=== PATIENT | male | born 1930 | race Caucasian/White ===

== ENCOUNTER 2016-08-06 22:57 | Inpatient (IN) | payer MEDICAID ==
[~2016-08-06] VITALS: Ht 162.6 cm; Wt 69.9 kg
[2016-08-06 23:00] VITALS: BP 189/100; PULSE 74; RESP 18; TEMP 97.9; O2SAT 99
[2016-08-06] MEDS ORDERED: ASPIRIN 81 MG CHEW TAB PO ONE (23:15)
[2016-08-06] MEDS ORDERED: SODIUM CHLORIDE 0.9% FLUSH 10 ML FLUSH IVF PRN (23:15)
[2016-08-06 23:20] VITALS: RESP 18; O2SAT 99
[2016-08-06] MEDS: NITROGLYCERIN 0.4 MG SL 25 TABS/BTL SL SCH ×3 (23:20→23:33)
--- NOTE | 2016-08-06 23:23 | PD ---
HPI Chief Complaint: Chest Pain Time Seen by Provider: 23:06 Travel History International Travel<30 days: No Contact w/Intl Traveler<30days: No Traveled to known affect area: No History of Present Illness HPI The patient is an 86-year-old male with a history of coronary artery disease and complains of a pressure pain on the anterior substernal region since about 10:15 PM today. He denies any nausea, diaphoresis but does have some radiation of pain down the left arm. He denies any shortness of breath. The patient speaks [place]ic but has his son that can interpret. He does not have any local physicians. 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 PFSH Past Medical History Hx Anticoagulant Therapy: Yes Cancer: Yes (prostate) Cardiovascular Problems: Yes High Cholesterol: Yes Chemotherapy: Yes Chest Pain: Yes Coronary Artery Disease: Yes Diminished Hearing: No Genitourinary: Yes Hypertension: Yes Inguinal Hernia: Yes Tetanus Vaccination: Unknown Influenza Vaccination: No Past Surgical History Cardiac Surgery: Yes Coronary Artery Bypass Graft: Yes Other Surgery: Yes (hernia repair) Social History Alcohol Use: No Tobacco Use: No Substance Use: No Allergies-Medications (Allergen,Severity, Reaction): Uncoded Allergies: dipyrone (Allergy, Intermediate, Hives, 08/06/16) Reported Meds & Prescriptions Reported Meds & Active Scripts Active Reported Simvastatin 40 Mg Tab 40 Mg PO HS Isosorbide Mononitrate 10 Mg Tab 10 Mg PO DAILY Take 2 doses 7 hours apart. Flomax (Tamsulosin HCl) 0.4 Mg Cap 0.4 Mg PO HS Review of Systems Except as stated in HPI: all other systems reviewed are Neg Physical Exam Narrative GENERAL: The patient is alert, oriented 3 and slight apparent distress with his chest discomfort. His vital signs show blood pressure 189/100 but otherwise normal. SKIN: Focused skin assessment warm/dry. HEAD: Atraumatic. Normocephalic. EYES: Pupils equal and round. No scleral icterus. No injection or drainage. ENT: No nasal bleeding or discharge. Mucous membranes pink and moist. NECK: Trachea midline. No JVD. CARDIOVASCULAR: Regular rate and rhythm. No murmur appreciated. I cannot reproduce the patient's chest pain by pressing on the chest wall. RESPIRATORY: No accessory muscle use. Clear to auscultation. Breath sounds equal bilaterally. GASTROINTESTINAL: Abdomen soft, non-tender, nondistended. Hepatic and splenic margins not palpable. No guarding or rebound is present. MUSCULOSKELETAL: No obvious deformities. No clubbing. No cyanosis. No edema. NEUROLOGICAL: Awake and alert. No obvious cranial nerve deficits. Motor grossly within normal limits. Normal speech. PSYCHIATRIC: Appropriate mood and affect; insight and judgment normal. Data Data Last Documented VS Vital Signs Date Time Temp Pulse Resp B/P Pulse Ox O2 Delivery O2 Flow Rate FiO2 08/07/16 00:01 52 18 179/69 100 Room Air 08/06/16 23:00 97.9 Orders Electrocardiogram (08/06/16 23:13) Ckmb (Isoenzyme) Profile (08/06/16 23:13) Complete Blood Count With Diff (08/06/16 23:13) Comprehensive Metabolic Panel (08/06/16 23:13) Magnesium (Mg) (08/06/16 23:13) Prothrombin Time / Inr (Pt) (08/06/16 23:13) Act Partial Throm Time (Ptt) (08/06/16 23:13) Troponin I (08/06/16 23:13) Chest, Single Ap (08/06/16 23:13) Ecg Monitoring (08/06/16 23:13) Bilateral Bp Monitoring (08/06/16 23:13) Iv Access Insert/Monitor (08/06/16 23:13) Oximetry (08/06/16 23:13) Oxygen Administration (08/06/16 23:13) Aspirin Chew (Aspirin Chew) (08/06/16 23:15) Sodium Chloride 0.9% Flush (Ns Flush) (08/06/16 23:15) Nitroglycerin Sl (Nitrostat Sl) (08/06/16 23:15) B-Type Natriuretic Peptide (08/06/16 23:56) Labs Laboratory Tests Test 08/06/16 23:15 White Blood Count 7.8 TH/MM3 Red Blood Count 4.24 MIL/MM3 Hemoglobin 11.9 GM/DL Hematocrit 35.9 % Mean Corpuscular Volume 84.8 FL Mean Corpuscular Hemoglobin 28.1 PG Mean Corpuscular Hemoglobin 33.2 % Concent Red Cell Distribution Width 15.5 % Platelet Count 200 TH/MM3 Mean Platelet Volume 9.8 FL Neutrophils (%) (Auto) 58.9 % Lymphocytes (%) (Auto) 29.6 % Monocytes (%) (Auto) 7.3 % Eosinophils (%) (Auto) 3.1 % Basophils (%) (Auto) 1.1 % Neutrophils # (Auto) 4.6 TH/MM3 Lymphocytes # (Auto) 2.3 TH/MM3 Monocytes # (Auto) 0.6 TH/MM3 Eosinophils # (Auto) 0.2 TH/MM3 Basophils # (Auto) 0.1 TH/MM3 CBC Comment DIFF FINAL Differential Comment Prothrombin Time 10.7 SEC Prothromb Time International 1.0 RATIO Ratio Activated Partial 25.6 SEC Thromboplast Time Sodium Level 144 MEQ/L Potassium Level 4.4 MEQ/L Chloride Level 109 MEQ/L Carbon Dioxide Level 29.6 MEQ/L Anion Gap 5 MEQ/L Blood Urea Nitrogen 32 MG/DL Creatinine 1.60 MG/DL Estimat Glomerular Filtration 41 ML/MIN Rate Random Glucose 109 MG/DL Calcium Level 8.9 MG/DL Magnesium Level 2.3 MG/DL Total Bilirubin 0.3 MG/DL Aspartate Amino Transf 22 U/L (AST/SGOT) Alanine Aminotransferase 21 U/L (ALT/SGPT) Alkaline Phosphatase 48 U/L Total Creatine Kinase 79 U/L Troponin I 0.07 NG/ML Total Protein 7.5 GM/DL Albumin 3.6 GM/DL MDM Medical Decision Making Medical Screen Exam Complete: Yes Emergency Medical Condition: Yes Medical Record Reviewed: Yes Interpretation(s) The CBC is normal except for hemoglobin 11.9 and hematocrit of 35.9. The complete metabolic profile shows a BUN of 32, creatinine 1.6 but is otherwise normal. The troponin I is 0.07. Differential Diagnosis Acute coronary syndrome, chest wall pain, pleuritic pain, esophageal pain, gastrointestinal pain, electrolyte disorder, congestive heart failure Narrative Course The patient has an elevated troponin I. Some of this may be due to renal insufficiency, his creatinine is 1.6 and the GFR estimated is 41. He does have an enlarged heart on x-ray but there is no acute pulmonary disease. The EKG shows sinus rhythm with a rate of 56 and Q waves in V1 through V3. He also has Q waves in lead 3. T-wave inversion is present in leads 1 and 2 and aVL and V 4 ,5 and 6. I discussed the patient with Dr. Carrillo, the patient will be admitted to the intermediate care floor here at [facility]. Physician Communication Physician Communication I discussed the patient with Dr. Carrillo, the patient will be admitted to her. Diagnosis Primary Impression: Chest pain Additional Impression: Elevated troponin I level Admitting Information Admitting Physician Requests: Admit Mitchell Edwards MD Aug 06, 2016 23:23 Mitchell Edwards MD Aug 06, 2016 23:23
[2016-08-06 23:30] VITALS: BP_SYST 184; BP_SYST 187; BP_DIAS 73
[2016-08-06 23:32] LABS: AUTOMATED NEUTROPHIL # 4.6 TH/MM3 (1.8-7.7); BASOPHIL # 0.1 TH/MM3 (0-0.2); BASOPHIL % 1.1 % (0.0-2.0); EOSINOPHIL # 0.2 TH/MM3 (0-0.4); EOSINOPHIL % 3.1 % (0.0-4.0); HEMATOCRIT 35.9 % (39.0-51.0); HEMO FLAGS DIFF FINAL; LYMPH % 29.6 % (9.0-44.0); LYMPHOCYTE # 2.3 TH/MM3 (1.0-4.8); MEAN CELL VOLUME 84.8 FL (80.0-100.0); MEAN CORPUSCULAR HEMOGLOBIN 28.1 PG (27.0-34.0); MEAN CORPUSCULAR HGB CONC 33.2 % (32.0-36.0); MONO % 7.3 % (0.0-8.0); NEUT % 58.9 % (16.0-70.0); PLATELET COUNT 200 TH/MM3 (150-450); RED BLOOD COUNT 4.24 MIL/MM3 (4.50-5.90); RED CELL DISTRIBUTION WIDTH 15.5 % (11.6-17.2); WHITE BLOOD COUNT 7.8 TH/MM3 (4.0-11.0)
[2016-08-06 23:37] LABS: CHLORIDE 109 MEQ/L (98-107); POTASSIUM 4.4 MEQ/L (3.5-5.1); SODIUM (NA) 144 MEQ/L (136-145)
[2016-08-06 23:41] LABS: ANION GAP 5 MEQ/L (5-15); BICARBONATE 29.6 MEQ/L (21.0-32.0); BLOOD UREA NITROGEN 32 MG/DL (7-18); MAGNESIUM 2.3 MG/DL (1.5-2.5)
[2016-08-06 23:44] LABS: ALT (GPT) 21 U/L (12-78); AST (GOT) 22 U/L (15-37); GLOMERULAR FILTRATION RATE 41 ML/MIN (>89)
--- NOTE | 2016-08-06 23:44 | RADHPO ---
EXAM DATE/TIME: 08/06/2016 23:24 [facility] COMPARISON: No previous studies available for comparison. INDICATIONS : Chest pain starting tonight MEDICAL HISTORY : Hypertension. Hypercholesterolemia. SURGICAL HISTORY : CABG. ENCOUNTER: Initial ACUITY: 1 day PAIN SCORE: 5/10 LOCATION: Bilateral chest FINDINGS: The cardiac silhouette is normal in transverse diameter. Median sternotomy wires are present. The patricia gs are free of acute parenchymal opacity. No effusions are identified. CONCLUSION: 1. Cardiomegaly. No acute pulmonary disease. Trevon Read MD on August 06, 2016 at 23:43 Board Certified Radiologist. This report was verified electronically.
[2016-08-06 23:45] LABS: APTT (PATIENT) 25.6 SEC (24.3-30.1); PROTHROMBIN TIME - PATIENT 10.7 SEC (9.8-11.6); TOTAL BILIRUBIN ADULT 0.3 MG/DL (0.2-1.0)
[2016-08-06 23:47] LABS: ALKALINE PHOSPHATASE 48 U/L (45-117)
[2016-08-06 23:49] LABS: CREATINE KINASE 79 U/L (39-308)
[2016-08-06] MEDS ORDERED: ISOS10TA3 PO (23:55)
[2016-08-06] MEDS ORDERED: TAMS5CAP PO (23:55)
[2016-08-06 23:56] VITALS: BP 184/73; PULSE 55; RESP 18; O2SAT 98
[2016-08-06] MEDS ORDERED: SIMV40TA PO (23:56)
[2016-08-07] VITALS (18 sets, daily range): BP systolic 130–179; BP diastolic 50–79; PULSE 48–72; RESP 16–20; TEMP 96.2–98.9; O2SAT 94–100
[2016-08-07] MEDS ORDERED: NALOXONE HCL 0.4 MG/ML AMP IV PRN (00:15)
[2016-08-07] MEDS ORDERED: SODIUM CHLORIDE 0.9% FLUSH 10 ML FLUSH IV FLUSH PRN (00:15)
[2016-08-07] MEDS ORDERED: NITROGLYCERIN 0.4 MG SL 25 TABS/BTL SL PRN (00:15)
[2016-08-07] MEDS ORDERED: CARVEDILOL 3.125 MG TAB PO ONE (00:30)
[2016-08-07] MEDS ORDERED: HEPARIN-D5W INJ 250 ML IV SCH (07:15)
--- NOTE | 2016-08-07 08:04 | HHI.HP ---
[facility] Service [facility] Primary Care Physician Non-Staff Admission Diagnosis chest pain, elevated troponin I Diagnoses: (1) NSTEMI (non-ST elevated myocardial infarction) Diagnosis: Principal Chief Complaint: chest pain Travel History International Travel<30 Days: No Contact w/Intl Traveler <30 Da: No Traveled to Known Affected Are: No History of Present Illness patient is a 86 y/o male with history of CAD- s/p CABG presented to ER with chest pain. his son who's proving the information says that he's had this on and off chest pain for the past six months. but the pain started to get worse last night. pain was described as ' pressure on the chest' which was associated with nausea. he denies any sob or diaphoresis. the patient is pain free at the time of my evaluation. Review of Systems Constitutional: DENIES: Fever, Weight loss, Chills, Night Sweats Eyes: DENIES: Blurred vision, Diplopia, Vision loss, Double Vision Ears, nose, mouth, throat: DENIES: Tinnitus, Vertigo, Throat pain, Epistaxis Respiratory: DENIES: Apneas, Cough, Snoring, Wheezing, Hemoptysis, Sputum production, Shortness of breath Cardiovascular: COMPLAINS OF: Chest pain, DENIES: Palpitations, Syncope, Dyspnea on Exertion, PND, Lower Extremity Edema, Orthopnea, Claudication Gastrointestinal: COMPLAINS OF: Nausea, DENIES: Abdominal pain, Black stools, Bloody stools, Constipation, Diarrhea, Vomiting, Difficulty Swallowing, Anorexia Genitourinary: DENIES: Urinary frequency, Urgency, Hematuria, Dysuria Musculoskeletal: DENIES: Joint pain, Muscle aches, Stiffness, Joint Swelling Integumentary: DENIES: Rash Neurologic: DENIES: Abnormal gait, Headache, Localized weakness, Paresthesias, Seizures, Speech Problems, Tremor, Poor Balance Psychiatric: DENIES: Anxiety, Confusion, Mood changes, Depression, Hallucinations, Agitation, Suicidal Ideation, Homicidal Ideation, Delusions Past Family Social History Past Medical History CAD- s/p CABG prostate cancer Past Surgical History CABG Reported Medications Simvastatin 40 Mg Tab 40 Mg PO HS Isosorbide Mononitrate 10 Mg Tab 10 Mg PO DAILY Take 2 doses 7 hours apart. Flomax (Tamsulosin HCl) 0.4 Mg Cap 0.4 Mg PO HS Allergies: Uncoded Allergies: dipyrone (Allergy, Intermediate, Hives, 08/06/16) Active Ordered Medications Current Medications Aspirin (Aspirin Chew) 162 mg ONCE ONCE PO Last administered on 08/06/16 23:33 ; Start 08/06/16 at 23:15; Stop 08/06/16 at 23:19; Status DC Sodium Chloride (NS Flush) 2 ml UNSCH PRN IVF FLUSH AFTER USING IV ACCESS; Start 08/06/16 at 23:15; Stop 08/07/16 at 00:19; Status DC Nitroglycerin (Nitrostat Sl) 0.4 mg Q5M SL Last administered on 08/06/16 23:33 ; Start 08/06/16 at 23:15; Stop 08/06/16 at 23:26; Status DC Sodium Chloride (NS Flush) 2 ml UNSCH PRN IV FLUSH FLUSH AFTER USING IV ACCESS ; Start 08/07/16 at 00:15 Sodium Chloride (NS Flush) 2 ml BID IV FLUSH ; Start 08/07/16 at 09:00 Naloxone HCl (Narcan Inj) 0.4 mg UNSCH PRN IV SEE LABEL COMMENTS; Start at 00:15 Aspirin (Ecotrin Ec) 325 mg DAILY PO ; Start 08/07/16 at 09:00 Nitroglycerin (Nitrostat Sl) 0.4 mg Q5M PRN SL CHEST PAIN; Start 08/07/16 at 00: 15 Carvedilol (Coreg) 3.125 mg ONCE ONCE PO Last administered on 08/07/16 00:48; Start 08/07/16 at 00:30; Stop 08/07/16 at 00:31; Status DC Heparin Sodium (Porcine) (Heparin Inj) 5,000 units UNSCH PRN IV APTT LESS THAN 25; Start 08/07/16 at 13:15 Heparin Sodium (Porcine) 2500 units 2,500 units UNSCH PRN IV APTT 25 TO 39; Start 08/07/16 at 13:15 Heparin Sodium/ Dextrose (Heparin-D5W Inj) 250 ml @ 0 mls/hr TITRATE IV ; Start 08/07/16 at 07:15 Metoprolol Tartrate (Lopressor) 50 mg Q12HR PO ; Start 08/07/16 at 09:00; Status UNV Nitroglycerin (Nitroglycerin 2% Oint) 1 inch Q6HR TOPICAL ; Start 08/07/16 at 07: 45; Status UNV Atorvastatin Calcium (Lipitor) 80 mg DAILY PO ; Start 08/07/16 at 09:00; Status UNV Social History quit smoking years ago- lives with the son. Physical Exam Vital Signs Vital Signs Date Time Temp Pulse Resp B/P Pulse Ox O2 Delivery O2 Flow Rate FiO2 08/07/16 04:15 97.9 72 20 150/62 96 08/07/16 02:01 96.2 58 16 173/78 94 08/07/16 01:31 61 18 99 08/07/16 00:53 57 18 150/71 100 Room Air 08/07/16 00:01 52 18 179/69 100 Room Air 08/06/16 23:56 55 18 184/73 98 Room Air 08/06/16 23:30 187/73 184/73 08/06/16 23:20 99 Room Air 08/06/16 23:20 18 99 Room Air 08/06/16 23:08 74 15 99 Room Air 08/06/16 23:00 97.9 74 18 189/100 99 Physical Exam GENERAL: This is a well-nourished, well-developed patient, in no apparent distress. SKIN: No rashes, ecchymoses or lesions. Cool and dry. HEAD: Atraumatic. Normocephalic. No temporal or scalp tenderness. EYES: Pupils equal round and reactive. Extraocular motions intact. No scleral icterus. No injection or drainage. ENT: Nose without bleeding, purulent drainage or septal hematoma. Throat without erythema, tonsillar hypertrophy or exudate. Uvula midline. Airway patent. NECK: Trachea midline. No JVD or lymphadenopathy. Supple, nontender, no meningeal signs. CARDIOVASCULAR: Regular rate and rhythm without murmurs, gallops, or rubs. RESPIRATORY: Clear to auscultation. Breath sounds equal bilaterally. No wheezes , rales, or rhonchi. GASTROINTESTINAL: Abdomen soft, non-tender, nondistended. No hepato-splenomegaly , or palpable masses. No guarding. MUSCULOSKELETAL: Extremities without clubbing, cyanosis, or edema. No joint tenderness, effusion, or edema noted. No calf tenderness. Negative Homans sign bilaterally. NEUROLOGICAL: Awake and alert. Cranial nerves II through XII intact. Motor and sensory grossly within normal limits. Five out of 5 muscle strength in all muscle groups. Normal speech. Laboratory Laboratory Tests Test 08/06/16 08/06/16 08/07/16 23:15 23:59 05:55 White Blood Count 7.8 Red Blood Count 4.24 Hemoglobin 11.9 Hematocrit 35.9 Mean Corpuscular Volume 84.8 Mean Corpuscular Hemoglobin 28.1 Mean Corpuscular Hemoglobin 33.2 Concent Red Cell Distribution Width 15.5 Platelet Count 200 Mean Platelet Volume 9.8 Neutrophils (%) (Auto) 58.9 Lymphocytes (%) (Auto) 29.6 Monocytes (%) (Auto) 7.3 Eosinophils (%) (Auto) 3.1 Basophils (%) (Auto) 1.1 Neutrophils # (Auto) 4.6 Lymphocytes # (Auto) 2.3 Monocytes # (Auto) 0.6 Eosinophils # (Auto) 0.2 Basophils # (Auto) 0.1 CBC Comment DIFF FINAL Differential Comment Prothrombin Time 10.7 Prothromb Time International 1.0 Ratio Activated Partial 25.6 Thromboplast Time Sodium Level 144 Potassium Level 4.4 Chloride Level 109 Carbon Dioxide Level 29.6 Anion Gap 5 Blood Urea Nitrogen 32 Creatinine 1.60 Estimat Glomerular Filtration 41 Rate Random Glucose 109 Calcium Level 8.9 Magnesium Level 2.3 Total Bilirubin 0.3 Aspartate Amino Transf 22 (AST/SGOT) Alanine Aminotransferase 21 (ALT/SGPT) Alkaline Phosphatase 48 Total Creatine Kinase 79 82 Troponin I 0.07 0.82 Total Protein 7.5 Albumin 3.6 B-Type Natriuretic Peptide 297 Result Diagram: 08/06/16231408/06/162314 Imaging Last Impressions Chest X-Ray 08/06/162312 Signed Impressions: Service Date/Time: August 23:24 - CONCLUSION: 1. Cardiomegaly. No acute pulmonary disease. Trevon Read MD Assessment and Plan Assessment and Plan A/P - NSTEMI with history of CAD- s/p CABG started on aspirin, heparin drip, metoprolol,nitrate and statin. cardiology consulted; case d/w ; patient will be transferred to the main campus for cardiac cath. check lipid panel. -renal insufficiency with unknown duration- start gentle IV hydration and repeat BMP in am- -history of prostate cancer- f/u as outpatient -DVT prophylaxis- on heparin drip of note, the patient's son is to bring the list of home medications. Discussed Condition With the patient and his son/ . Elaine Hill MD Aug 07, 2016 08:04
[2016-08-07] MEDS ORDERED: NS 1000P @30 MLS/HR (KVO) IV SCH (10:00)
[2016-08-07] MEDS ORDERED: HEPARIN-NS/PF INJ 500 ML ONE ×2 (10:35→10:56)
[2016-08-07] MEDS ORDERED: MIDAZOLAM HCL 2 MG/2 ML VIAL ONE (10:48)
[2016-08-07] MEDS ORDERED: NITROGLYCERIN INJ 5 ML ONE (10:48)
[2016-08-07] MEDS ORDERED: HEPARIN SODIUM - IV 10,000 UNITS/10 ML VIAL ONE (10:48)
[2016-08-07] MEDS ORDERED: hydrALAZINE HCL 20 MG/ML VIAL ONE (11:50)
[2016-08-07] MEDS ORDERED: SODIUM CHLOR 0.9% 1000 ML INJ 1,000 ML IV SCH (11:52)
[2016-08-07] MEDS ORDERED: SODIUM CHLOR 0.9% 250 ML INJ 250 ML IV PRN (12:00)
[2016-08-07] MEDS ORDERED: LIDOCAINE HCL 1% 50 ML VIAL INFIL PRN (12:00)
[2016-08-07] MEDS ORDERED: METOCLOPRAMIDE HCL 10 MG/2 ML VIAL IV PRN (12:00)
[2016-08-07] MEDS ORDERED: ONDANSETRON HCL 4 MG/2 ML VIAL IV PRN (12:00)
[2016-08-07] MEDS ORDERED: LORazepam 2 MG/ML VIAL IV PRN (12:00)
[2016-08-07] MEDS ORDERED: BACITRACIN OINT 0.9 GM PKT TOP ONE (12:00)
[2016-08-07] MEDS ORDERED: MISC INFORMATION XX ONE (12:00)
[2016-08-07] MEDS ORDERED: ATROPINE SULFATE 1 MG/ML VIAL IV PRN (12:00)
--- NOTE | 2016-08-07 12:08 | CATHPROC ---
[email or web address] HIS Report Study Information Study Number Scheduled Start Study Start 1060-17 08/07/2016 Aug 07 2016 10:45AM Study Type [place] Service Left/Possible PCI Cardiac Catheterization Referring Institution Admit Source Facility Department 1 [facility] - Practice Physician Physician and Clinical Staff Initial Rolando Miranda Electric System Operator Juan Ramon Rainey,RN Other cathlab, cathlab Recorder Julio Martinez RCIS(BS) Scrub Lima Javier RT(R) Procedures Performed Procedure Location (Site) Vessel Name Angiogram LV Asc. Aorta (A) Coronary Angiograms LCA Left Coronary Coronary Angiograms RCA Right Coronary Coronary Angiograms Gft. Stump 1 SVG Graft Coronary Angiograms SLOAN SLOAN L Heart Cath Equipment Time Bank Sales And Service Manager Description Size Mfg Part Number Used/Scraped TRANSDUCER, TRUWMAGNOLIA [id number] 11:13 [employer] BARRERA * Used W/STOCKCOCK *[id number] [id number] *[id number] [id number] *[id number] [id number] *[id number] [id number] *[id number] 11:13 [employer] INDUSTRIES PACK, CCL CUSTOM * Used *[id number] 11:13 [employer] PACER PEN, SKIN DUAL W/ RULER * Used *[id number] SHEATH, FR6 RADIAL PRELUDE 11:13 [employer] FR 6 [id number] Used EASE 11CM [id number] 11:13 [employer] WIRE, EXCHANGE 260CM 3MMJ 260CM Used *[id number] 11:13 [employer] OMNIPAQUE, 350 MG, 150ML 150ML [id number] Used 11:32 [employer] OMNIPAQUE, 350 MG, 50ML 50ML [id number] Used DYEVERT, CONTRAST HVOFF-RRS 11:29 [employer] NG Used MODULATION SYSTEM NG *[id number] 11:13 [employer] BLANKET,WARM AIR CCL * Used *[id number] 11:13 [employer] SHEATH, FR5 TERUMO (10CM) FR 5 [id number] Used History: Current Medications Medication Dosage/Unit Route Frequency Last Date/Time Taken Statins (any) History: Allergies Allergy Reaction dipyrone Hives History: Risk Factors Family History of Hypertension Dyslipidemia Previous PR Previous Heart Failure Premature CAD Yes Yes No No No Prior Valve Prior PCI Prior PCIDate Prior CABG Surgery No Yes 03/08/1997 No Cerebrovascular Peripheral Artery Chronic Lung On Dialysis Diabetes Disease Disease Disease No No No No No History: CV Disease Selection Items Known CAD History: Stress Tests Stress or Imaging Studies Performed No History: Other Disease Selection Items CAD HTN History: PR/CV Data Previous Cath Date 03/08/1997 History: Other Current Smoker Method Quit Packs a Day Years Used Pack Years No Cigarettes 48 Years Ago 1 15 15 Labs Hgb (g/dl) Hct (%) WBC (l/cumm) Platelets (thousands) 12.00-18.00 37.00-55.00 4.80-10.80 140.00-450.00 11.0 35 4.2 200 Glucose (mg/dl) BUN (mg/dl) Creatinine (mg/dl) BUN:Creatinine (1:x) 60.00-110.00 8.00-20.00 0.10-9.00 10.00-20.00 109 32 1.6 20 Na (meq/l) K (meq/l) 138.00-146.00 3.80-5.10 144 4.4 INR (PTT:PT) 0.50-2.00 1 CPK-MB (ng/ML) 0.00-7.00 Not Drawn Medication Medication Total Dose (Bolus/Oral) Medication Total Dosage/Unit 1% XYLOCAINE 20 mL APRESOLINE 20 mg FENTANYL 25 mcg VERSED 0.5 mg Medications (Bolus/Oral) Medication Time Given Dosage/Unit Administered By Reason VERSED 08/07/2016 11:14:18 AM 0.5 mg Juan Ramon Rainey Patient arrived on 0.5 mg VERSED given by Juan Ramon Rainey RN in Right Forearm via Peripheral IV. Order ed by Rolando Solares. FENTANYL 08/07/2016 11:14:19 AM 25 mcg Juan Ramon Rainey Patient arrived on 25 mcg FENTANYL given by Juan Ramon Rainey RN in Right Forearm via Peripheral IV. Ord ered by Rolando Solares. 1% XYLOCAINE 08/07/2016 11:15:03 AM 20 mL Rolando Solares 20 mL 1% XYLOCAINE given in lab by Rolando Solares in Right Groin via Subcutaneous. APRESOLINE 08/07/2016 11:51:04 AM 20 mg Juan Ramon Rainey 20 mg APRESOLINE given in lab by Juan Ramon Rainey RN in Right Forearm via Peripheral IV. Ordered by Rolando Richardson. Medication (Drip) Medication Time Given Dosage/Unit Concentration/Unit Diluent (ml) Solution IV Solutions 08/07/2016 10:45:33 AM 0 mL (IV) NaCl .9 Patient arrived on IV Solutions given by jessica lopez in Right Forearm via Peripheral IV. Pump/Dr ip Flow = 20 ml/hr using NaCl .9. Ordered by Rolando Solares. Initial Case Assessment Cardiovascular HR Rhythm NIBP Chest Pain 54 zach 193/83 0 Edema Present Skin color Skin None Normal Warm Dry Circulatory - Right Pulses Dorsalis Pedis Femoral Radial 2 2 2 Scale (0,1,2,3,4,d) Scale (0,1,2,3,4,d) Neurological State Oriented to time-place- Alert Moves all extremities person Respiration - General Respiration Rate SpO2 (%) (B/min) 15 98 Final Case Assessment Cardiovascular HR Rhythm NIBP Chest Pain 42 zach 169/72 0 Edema Present Skin color Skin None Normal Warm Dry Circulatory - Right Pulses Dorsalis Pedis Femoral Radial 2 2 2 Scale (0,1,2,3,4,d) Scale (0,1,2,3,4,d) Neurological State Oriented to time-place- Alert Moves all extremities person Respiration - General Respiration Rate SpO2 (%) (B/min) 15 98 Chronological Log Time Study Chronological Log 10:45:21 Patient arrived via Bed. 10:45:22 Patient Name, D.O.B, / Armband Verified By R.N. 10:45:22 Consent signed by the physician and the patient and verified by the Practice Physician staff. 10:45:23 Pre-op and post- op instructions given; patient acknowledges understanding of instructions. 10:45:24 Verbal Stimulation=2 Physical Stimulation=2 Airway=2 Respiration=2 TOTAL=8. (0=absent, 1=li mited, 2=present) 10:45:25 Presedation assessment performed by Practice Physician RN. 10:45:26 Allens test performed on the right radial and ulnar artery. POSITIVE. 10:45:27 Immediate Presedation assesment performed by physician. 10:45:28 Patient has been NPO for More than 6Hrs. 10:45:29 Skin Breakdown-none per patient 10:45:31 Patient Warmer Placed on the Table. 10:45:31 Chris Prominences Protected 10:45:32 A # 20 IV was noted in the Forearm (right). Grade = 0 Patient arrived on IV Solutions given by cathlab, cathlab in Right Forearm via Peripheral IV. P ump/Drip Flow = 20 ml/hr 10:45:33 using NaCl .9. Ordered by Rolando Solares. 10:45:33 History and physical on the chart or being dictated. 10:52:45 Reference ECG taken Vitals capture started with the following parameters, Patient=Adult, Interval=15 min, Initial P fhvfzxe=539 mmHg, 10:52:47 Deflation Rate=5 mmHg 10:54:40 HR=55 bpm, LTTU=940/83 mmhg, SpO2=99.0 %, Resp=12 B/min, Pain=0, Everardo=10, Wren=2 Assessment: Initial Case, HR=54 BPM, Rhythm=zach, GBWC=979/83 mmhg, Chest Pain=0, Edema=None, Color=Normal, Skin = Warm, Dry 10:55:15 Right Pulses: Redd Ped=2, Femoral=2, Radial=2 Neurological: State=Alert, Ox3, CEBALLOS Respiration: Resp=15 B/min, SpO2=98 % 10:56:11 Right Radial and groin(s) prepped with 2% chlorhexidine, and with a 3 min. waiting time. 10:58:36 HR=60 bpm, ALGD=285/87 mmhg, SpO2=97.0 %, Resp=13 B/min, Pain=0, Everardo=10, Wren=2 11:02:22 MD paged 11:03:37 HR=55 bpm, BDAS=597/83 mmhg, SpO2=97.0 %, Resp=15 B/min, Pain=0, Everardo=10, Wren=2 11:03:46 Pressure channel 1 zeroed. 11:08:36 HR=44 bpm, KTFI=878/80 mmhg, SpO2=97.0 %, Resp=10 B/min, Pain=0, Everardo=10, Wren=2 11:09:13 MD arrived. 11:10:15 Contrast Scanned 11:10:16 Immediate Presedation assesment performed by physician. 11:13:35 HR=53 bpm, GWBA=842/85 mmhg, SpO2=98.0 %, Resp=19 B/min, Pain=0, Everardo=10, Wren=2 Patient arrived on 0.5 mg VERSED given by Juan Ramon Rainey RN in Right Forearm via Peripheral IV. Ordered by Beck, 11::18 Rolando. Patient arrived on 25 mcg FENTANYL given by Juan Ramon Rainey RN in Right Forearm via Peripheral I V. Ordered by Beck, 11:14:19 Rolando. Time Out. Correct patient, correct procedure,correct physician, ,power injector loaded with con trast with surgical team 11:14:42 present. Time Out Concurred by , individual staff in procedure 11:14:52 Case Start 11:14:53 Verbal Stimulation=2 Physical Stimulation=2 Airway=2 Respiration=2 TOTAL=8. (0=absent, 1=li mited, 2=present) 11:15:03 20 mL 1% XYLOCAINE given in lab by Rolando Solares in Right Groin via Subcutaneous. 11:16:38 Access site was Right Femoral Artery. 11:16:43 A SHEATH, FR5 TERUMO (10CM) FR 5 was advanced into the Fem Art (right) using the Percutaneo us technique. A JL 4.0 INFINITI CATHETER FR 5 was advanced over a wire. OMNIPAQUE, 350 MG, 150ML 150ML was us ed for 11:16:52 injections. 11:18:36 HR=45 bpm, PALF=464/73 mmhg, SpO2=95.0 %, Resp=16 B/min, Pain=0, Everardo=10, Wren=2 Recorded Pressure: Ao, HR=55, Condition=Condition 1 11:19:09 (Aorta) Ao 185/72/115 11:19:38 The LCA was injected and visualized at various angles. OMNIPAQUE, 350 MG, 150ML 150ML used . After removing the current catheter a JR 4.0 INFINITI CATHETER FR 5 was advanced over a WIRE, E XCHANGE 260CM 11:21:10 3MMJ 260CM. 11:23:37 HR=42 bpm, MFFA=629/69 mmhg, SpO2=94.0 %, Resp=10 B/min, Pain=0, Everardo=10, Wren=2 11:24:58 The RCA was injected and visualized at various angles. OMNIPAQUE, 350 MG, 150ML 150ML used . 11:24:58 The Gft. Stump 1 was injected and visualized at various angles. OMNIPAQUE, 350 MG, 150ML 15 0ML used. After removing the current catheter a ALICIA INFINITI CATHETER FR 5 was advanced over a WIRE, EXCH JAKE 260CM 11:27:13 3MMJ 260CM. 11:28:34 HR=42 bpm, WDSJ=212/72 mmhg, SpO2=95.0 %, Resp=10 B/min 11:30:28 The SLOAN was injected and visualized at various angles. OMNIPAQUE, 350 MG, 150ML 150ML used . After removing the current catheter a PIGTAIL ANG. INFINITI CATHETER FR 5 was advanced over a W ASHISH, EXCHANGE 11:31:08 260CM 3MMJ 260CM. 11:32:09 The Asc. Aorta (A) was injected at 20 cc/sec for a total of 40. OMNIPAQUE, 350 MG, 50ML 50M L used. 11:34:22 HR=52 bpm, NQAF=899/72 mmhg, SpO2=97.0 %, Resp=19 B/min, Pain=0, Everardo=10, Wren=2 After removing the current catheter a JL 4.0 INFINITI CATHETER FR 5 was advanced over a WIRE, E XCHANGE 260CM 11:37:20 3MMJ 260CM. 11:38:32 HR=62 bpm, DIBS=435/88 mmhg, SpO2=94.0 %, Resp=15 B/min, Pain=0, Everardo=10, Wren=2 11:39:16 The LCA was injected and visualized at various angles. OMNIPAQUE, 350 MG, 150ML 150ML used . 11:41:55 Catheter was removed 11:42:02 Case End 11:43:35 HR=41 bpm, SNLG=437/72 mmhg, SpO2=95.0 %, Resp=9 B/min, Pain=0, Everardo=10, Wren=2 Assessment: Final Case, HR=42 BPM, Rhythm=zach, LOFZ=442/72 mmhg, Chest Pain=0, Edema=None, Color=Normal, Skin = Warm, Dry 11:44:37 Right Pulses: Redd Ped=2, Femoral=2, Radial=2 Neurological: State=Alert, Ox3, CEBALLOS Respiration: Resp=15 B/min, SpO2=98 % 11:44:53 Catheter(s) removed without difficulty 11:44:55 No case complications noted. 11:44:55 Cine recording checked. 11:44:58 Bedside Report will be given. 11:44:59 Contrast Scanned 11:45:01 Verbal Stimulation=2 Physical Stimulation=2 Airway=2 Respiration=2 TOTAL=8. (0=absent, 1=li mited, 2=present) 11:45:02 Sheath removed; pressure applied to access site. 11:45:24 A Left Heart Cath was performed. 11:48:36 HR=43 bpm, WXMV=321/73 mmhg, SpO2=95.0 %, Resp=11 B/min, Pain=0, Everardo=10, Wren=2 11:48:[address] Resendiz 11:51:04 20 mg APRESOLINE given in lab by Juan Ramon Rainey, RN in Right Forearm via Peripheral IV. Orde red by Rolando Solares. 11:53:42 HR=42 bpm, TOVM=351/69 mmhg, SpO2=95.0 %, Resp=13 B/min, Pain=0, Everardo=10, Wren=2 11:58:37 HR=51 bpm, QOOY=337/66 mmhg, SpO2=96.0 %, Resp=14 B/min, Pain=0, Everardo=10, Wren=2 12:03:31 HR=56 bpm, FBXM=967/73 mmhg, SpO2=94 %, Resp=16 B/min, Pain=0, Everardo=10, Wren=2 12:06:03 Sterile dressing applied to site 12:06:09 Vitals capture stopped. 12:08:02 Patient moved to [facility] End Study - Contrast Media Used In Study Contrast Total Opened (mL) Total Used (mL) Total Wasted (mL) Omnipaque 90 90 0 End Study - Maximum Contrast Load Max Contrast Load (mL) 231.3 End Study - Radiation Exposure Fluoro Time (minutes) 8.8 End Study - Patient Disposition Complications Transferred To Interventional Outcome No Practice Physician Holding No attempt made
--- NOTE | 2016-08-07 12:14 | MB ---
cc: ELLIOTT ALEGRE MD DATE OF CONSULTATION: 08/07/2016 HISTORY OF PRESENT ILLNESS This is an 86-year-old gentleman who was admitted to the hospital for chest discomfort. He does not speak Nepali, but his son is at bedside who helps interpret and provides an excellent history. The patient has had chest discomfort now for sometime and probably for the last 1-2 weeks. This has been described as a substernal chest tightness usually with exertion. He was seen by his primary care doctor last week who prescribed isosorbide orally for him. Yesterday, he had an acute episode occurring at rest which was much worse in severity associated with nausea. This also radiated into his left arm and he had mild shortness of breath. No diaphoresis was present. He came to the emergency department. His electrocardiogram demonstrates ST and T-wave changes in the lateral leads consistent with lateral ischemia and troponin is elevated from an initial value of 0.07 to 0.82. He is currently resting comfortably. No prior history of heart disease has been present. PAST MEDICAL HISTORY His past medical history has been significant for hyperlipidemia for which he has been on simvastatin 40 mg daily, and recently has also been put on Flomax for apparent BPH. No history of hypertension or diabetes is present. He is a nonsmoker. ALLERGIES DIPYRONE. SOCIAL HISTORY The patient does not smoke, drink or use recreational drugs. MEDICATIONS Medications at home are as noted above in the past medical history. REVIEW OF SYSTEMS Otherwise unremarkable. LABORATORY Otherwise is significant for mild renal dysfunction with a creatinine of 1.60. Coag profile is normal and H&H is normal with a hemoglobin of 11.9 and hematocrit 35.9. White count is normal. IMAGING His chest x-ray reveals no evidence for heart failure. PHYSICAL EXAMINATION VITAL SIGNS: Blood pressure 150/90, pulse 70. NECK: There is no neck vein distention. LUNGS: Clear. CARDIOVASCULAR: Regular rate and rhythm. There is no murmur or gallop noted. ABDOMEN: Soft. There is no tenderness or organomegaly. EXTREMITIES: No edema. ASSESSMENT/PLAN Patient has signs and symptoms of unstable angina. Will add metoprolol and nitro paste to his regimen as well as continue his aspirin. Will switch his simvastatin to atorvastatin. He will need to be transferred to the main hospital for cardiac catheterization. He and his son are agreeable to this and will see if we can arrange that for today. MD BRANDON Mueller/JOSE LUIS /7:37 AM /12:08 PM
--- NOTE | 2016-08-07 12:25 | EKG ---
Date Performed: 08/07/2016 Time Performed: 05:32:00 PTAGE: 86 years EKG: Sinus bradycardia with PAC(s) Prolonged QT interval Possible anterior infarct - age undeter mined Inferior/lateral ST-T changes may be due to myocardial ischemia Abnormal ECG NO PREVIOUS TRACING DOCTOR: Hilario Stewart Interpretating Date/Time 08/07/2016 12:22:54
--- NOTE | 2016-08-07 12:27 | EKG ---
Date Performed: 08/06/2016 Time Performed: 22:49:28 PTAGE: 86 years EKG: Atrial fibrillation with slow ventricular response. Cannot rule out anterior infarct - age undetermined LVH with secondary repolarization abnormality Inferior/lateral ST-T changes are probably due to ventricular hypertrophy Abnormal ECG Cannot rule out ischemia Clinical correlation is recomme nded. NO PREVIOUS TRACING DOCTOR: Hilario Stewart Interpretating Date/Time 08/07/2016 12:27:14
[2016-08-07] MEDS ORDERED: IOHEXOL 350 MG/ML 100 ML BTL (for Cath Lab) OTHER ONE (12:38)
[2016-08-07] MEDS ORDERED: MORPHINE SULFATE 4 MG/ML INJ ONE (12:44)
[2016-08-07] MEDS ORDERED: MIDAZOLAM HCL 2 MG/2 ML VIAL IV PUSH ONE (13:15)
[2016-08-07] MEDS ORDERED: hydrALAZINE HCL 20 MG/ML VIAL IV PUSH ONE (13:15)
[2016-08-07] MEDS ORDERED: HEPARIN SODIUM - IV 10,000 UNITS/10 ML VIAL IV PRN ×2 (13:15)
[2016-08-07] MEDS ORDERED: MORPHINE SULFATE 4 MG/ML INJ IV PUSH PRN (13:15)
[2016-08-07 16:30] LABS: APTT (PATIENT) 22.7 SEC (24.3-30.1)
--- NOTE | 2016-08-07 17:15 | MA ---
cc: CCList DATE: 08/07/2016 INDICATION Arrest PROCEDURE PERFORMED 1. Fluoroscopy with interpretation. 2. Coronary angiography. 3. Descending aortography. METHOD: Risks, benefits and alternatives were discussed with the patient. The patient understood and consented to the procedure. PROCEDURE The patient brought catheterization lab and placed on the catheterization table. Right groin prepped and draped in sterile fashion. Right groin was anesthetized with 2% lidocaine. His right common femoral artery was cannulated with 5-Tanzanian alone and Steri-Strip was placed without difficulty. CORONARY ARTERIOGRAPHY: 1. Left main coronary 30% stenosis distally. 2. Left anterior descending coronary is moderate with calcium present throughout its proximal segment and minus , calcium present in the mid segment, mid segment has a 90% stenosis present. 3. The remainder of the vessel has mild luminal irregularities. 4. Left circumflex gives rise to high first obtuse marginal branch with minor luminal irregularities. 5. The midsegment of circumflex has 100% occlusion. There is a large second moderate sized second obtuse marginal branch has minor luminal irregularities. 6. The right coronary is 100% occluded proximally collateralized via [id number] collaterals. 7. The posterior descending posterolateral branches appear to have rather diffuse small vessel disease. Coronary bypass graft angiography and saphenous vein graft to the right coronary is occluded. The left internal mammary was not utilized, no further graft conduits were visualized. ASCENDING AORTOGRAPHY: The ascending aortography was performed, left anterior oblique view. No vein grafts were visualized from the aorta, the descending aorta has a small to moderate-sized infrarenal aortic aneurysm and moderate calcium present. CONCLUSION 1. Severe [place] three-vessel coronary disease. 2. All coronary bypass grafts are occluded. 3. Moderate infrarenal aortic aneurysm. PLAN Given the creatinine and the contrast administered. We will hold off doing any potential intervention. The patient did not have the left internal mammary utilization during bypass surgery previously. If he is a good surgical candidate, surgical revascularization may be best option and they can graft the left anterior descending, the obtuse marginal branch and potentially the right. If he is not a good reoperative candidate, then we will proceed with possible rotation atherectomy and stenting of the mid left anterior descending coronary medically managed the circumflex and the right coronary arteries. Will obtain echocardiogram consult Dr. Resendiz the cardiothoracic surgeon for further recommendations. MD Lakshmi Quick /11:58 AM /2:45 PM
[2016-08-07] MEDS: NITROGLYCERIN 2% OINT 1 GM PACKET TOPICAL SCH (19:00)
--- NOTE | 2016-08-07 19:00 | EC ---
Study Study Date:08/07/2016 STUDY CONCLUSIONS SUMMARY - Left ventricle: The cavity size was normal. Systolic function was moderately reduced. The estimated ejection fraction was in the range of 40% to 45%. Diffuse hypokinesis. Doppler parameters are consistent with abnormal left ventricular relaxation (grade 1 diastolic dysfunction). - Aortic valve: Mild regurgitation. If LV function is below 40, please consider prescribing an ACEI or ARB or document rationale for non-use. PROCEDURE DATA STUDY STATUS: Elective. Procedure: Transthoracic echocardiography. Image quality was fair. Scanning was performed from the parasternal, apical, and subcostal acoustic windows. Study completion: The patient tolerated the procedure well. Transthoracic echocardiography. M-mode, complete 2D, complete spectral Doppler, and color Doppler. Patient status: Inpatient. CARDIAC ANATOMY LEFT VENTRICLE: The cavity size was normal. Systolic function was moderately reduced. The estimated ejection fraction was in the range of 40% to 45%. Diffuse hypokinesis. Doppler parameters are consistent with abnormal left ventricular relaxation (grade 1 diastolic dysfunction). AORTIC VALVE: Mildly thickened leaflets. Doppler: There was no stenosis. Mild regurgitation. MITRAL VALVE: The valve appears to be grossly normal. Doppler: There was no evidence for stenosis. Trace to mild regurgitation. RIGHT VENTRICLE: The cavity size was normal. PULMONIC VALVE: Not well visualized. Doppler: There was no evidence for stenosis. No significant regurgitation. TRICUSPID VALVE: The valve appears to be grossly normal. Doppler: There was no evidence for stenosis. Trace regurgitation. PERICARDIUM: There was no pericardial effusion. BASIC MEASUREMENTS ADULT Normal Left ventricle LV internal dimension, ED, chordal level, 50.1 mm 43-52 PLAX LV internal dimension, ES, chordal level, *42.3 mm 23-38 PLAX Fractional shortening, chordal level, PLAX *16 % >29 LV posterior wall thickness, ED 7.73 mm IVS/LVPW ratio, ED *1.36 <1.3 Ventricular septum Septal thickness, ED 10.5 mm Left atrium Anterior-posterior dimension 37 mm Right ventricle RV internal dimension, ED, PLAX 20.7 mm 19-38 DOPPLER MEASUREMENTS ADULT Normal Main pulmonary artery Pressure, S 28 mm Hg =30 Aortic valve Peak velocity, S 117 cm/s Mitral valve Peak E-wave velocity 49.9 cm/s Peak A-wave velocity 63.2 cm/s Peak E/A ratio 0.8 Tricuspid valve Regurgitant peak velocity 134 cm/s Peak RV-RA gradient, S 7 mm Hg Maximal regurgitant velocity 134 cm/s Systemic veins Estimated CVP 5 mm Hg Right ventricle RV pressure, S 28 mm Hg <30 LEGEND: Mean values are shown as u=mean value. Asterisk (*) aguayo values outside specified normal range. Prepared and signed by Pedro Tatum [id number]
[2016-08-07] MEDS: SODIUM CHLORIDE 0.9% FLUSH 10 ML FLUSH IV FLUSH SCH (21:00)
[2016-08-07] MEDS: METOPROLOL TARTRATE 50 MG TAB PO SCH (21:00)
[2016-08-07] MEDS: TAMSULOSIN HCL 0.4 MG CAP PO SCH (22:33)
[2016-08-08] VITALS (24 sets, daily range): BP systolic 104–150; BP diastolic 56–67; PULSE 51–72; RESP 18–19; TEMP 97.5–98.9; O2SAT 97–99
[2016-08-08] MEDS: NITROGLYCERIN 2% OINT 1 GM PACKET TOPICAL SCH ×4 (01:24→17:42)
[2016-08-08 05:33] LABS: AUTOMATED NEUTROPHIL # 4.6 TH/MM3 (1.8-7.7); BASOPHIL % 0.6 % (0.0-2.0); EOSINOPHIL # 0.2 TH/MM3 (0-0.4); EOSINOPHIL % 2.5 % (0.0-4.0); HEMATOCRIT 34.5 % (39.0-51.0); HEMO FLAGS DIFF FINAL; LYMPH % 23.7 % (9.0-44.0); LYMPHOCYTE # 1.7 TH/MM3 (1.0-4.8); MEAN CELL VOLUME 84.2 FL (80.0-100.0); MEAN CORPUSCULAR HEMOGLOBIN 28.5 PG (27.0-34.0); MEAN CORPUSCULAR HGB CONC 33.9 % (32.0-36.0); MONO % 8.2 % (0.0-8.0); PLATELET COUNT 192 TH/MM3 (150-450); RED CELL DISTRIBUTION WIDTH 16.8 % (11.6-17.2)
[2016-08-08 05:46] LABS: BICARBONATE 28.9 MEQ/L (21.0-32.0); POTASSIUM 4.3 MEQ/L (3.5-5.1)
[2016-08-08 05:48] LABS: HDL CHOLESTEROL 30.1 MG/DL (40.0-60.0)
[2016-08-08] MEDS: ASPIRIN EC 325 MG TABEC PO SCH ×2 (08:58→09:00)
[2016-08-08] MEDS: ATORVASTATIN 40 MG TAB PO SCH (08:58)
[2016-08-08] MEDS: SODIUM CHLORIDE 0.9% FLUSH 10 ML FLUSH IV FLUSH SCH (08:59)
[2016-08-08] MEDS: METOPROLOL TARTRATE 50 MG TAB PO SCH (09:00)
--- NOTE | 2016-08-08 10:19 | PD.CARD.PN ---
Subjective Subjective Remarks Pt denies cp/sob Objective Medications Administered Medications Medications (Trade) Dose Ordered Sig/Chuyita Route PRN Reason Start Time Stop Time Status Last Admin Dose Admin Sodium Chloride (NS Flush) 2 ml BID IV FLUSH 08/07/16 09:00 08/08/16 08:59 Aspirin (Ecotrin Ec) 325 mg DAILY PO 08/07/16 09:00 08/08/16 09:00 Metoprolol Tartrate (Lopressor) 50 mg Q12HR PO 08/07/16 09:00 08/07/16 21:00 Nitroglycerin (Nitroglycerin 2% Oint) 1 inch Q6HR TOPICAL 08/07/16 08:00 08/08/16 06:17 Atorvastatin Calcium (Lipitor) 80 mg DAILY PO 08/07/16 09:00 08/08/16 08:58 Tamsulosin HCl (Flomax) 0.4 mg HS PO 08/07/16 21:00 08/07/16 22:33 Vital Signs / I&O Vital Signs Date Time Temp Pulse Resp B/P Pulse Ox O2 Delivery O2 Flow Rate FiO2 08/08/16 10:08 58 08/08/16 09:31 60 08/08/16 08:14 52 08/08/16 07:52 98.1 58 19 112/56 98 08/08/16 07:52 60 08/08/16 05:00 62 08/08/16 04:00 54 08/08/16 04:00 98.3 59 19 104/57 99 08/08/16 03:00 52 08/08/16 02:00 52 08/08/16 01:00 54 08/08/16 00:00 98.0 52 18 130/64 99 08/08/16 00:00 52 08/07/16 23:00 54 08/07/16 22:00 52 08/07/16 21:00 54 08/07/16 20:00 98.2 56 20 130/62 99 08/07/16 20:00 52 08/07/16 18:00 56 08/07/16 17:00 58 08/07/16 16:00 58 08/07/16 15:00 98.9 54 18 130/50 99 08/07/16 15:00 54 08/07/16 14:00 58 08/07/16 13:00 48 08/07/16 12:00 52 08/07/16 11:30 48 I/O 08/07/16 08/07/16 08/07/16 08/08/16 08/08/16 08/08/16 07:00 15:00 23:00 07:00 15:00 23:00 Intake Total 240 ml Balance 240 ml Intake Oral 240 ml # Voids 2 1 # Bowel Movements 0 Physical Exam GENERAL: This is a well-nourished, well-developed patient, in no apparent distress. CARDIOVASCULAR: Regular rate and rhythm without murmurs, gallops, or rubs. RESPIRATORY: Clear to auscultation. Breath sounds equal bilaterally. No wheezes , rales, or rhonchi. GASTROINTESTINAL: Abdomen soft, non-tender, nondistended. Normal active bowel sounds MUSCULOSKELETAL: Extremities without clubbing, cyanosis, or edema. NEURO: Alert & Oriented x4 to person, place, time, situation. Moves all ext x4 Laboratory Laboratory Tests Test 08/07/16 08/08/16 15:48 04:16 Activated Partial 22.7 SEC Thromboplast Time Total Creatine Kinase 96 U/L Troponin I 1.20 NG/ML White Blood Count 7.0 TH/MM3 Red Blood Count 4.10 MIL/MM3 Hemoglobin 11.7 GM/DL Hematocrit 34.5 % Mean Corpuscular Volume 84.2 FL Mean Corpuscular Hemoglobin 28.5 PG Mean Corpuscular Hemoglobin 33.9 % Concent Red Cell Distribution Width 16.8 % Platelet Count 192 TH/MM3 Mean Platelet Volume 9.5 FL Neutrophils (%) (Auto) 65.0 % Lymphocytes (%) (Auto) 23.7 % Monocytes (%) (Auto) 8.2 % Eosinophils (%) (Auto) 2.5 % Basophils (%) (Auto) 0.6 % Neutrophils # (Auto) 4.6 TH/MM3 Lymphocytes # (Auto) 1.7 TH/MM3 Monocytes # (Auto) 0.6 TH/MM3 Eosinophils # (Auto) 0.2 TH/MM3 Basophils # (Auto) 0.0 TH/MM3 CBC Comment DIFF FINAL Differential Comment Sodium Level 139 MEQ/L Potassium Level 4.3 MEQ/L Chloride Level 105 MEQ/L Carbon Dioxide Level 28.9 MEQ/L Anion Gap 5 MEQ/L Blood Urea Nitrogen 24 MG/DL Creatinine 1.30 MG/DL Estimat Glomerular Filtration 52 ML/MIN Rate Random Glucose 80 MG/DL Calcium Level 8.8 MG/DL Triglycerides Level 158 MG/DL Cholesterol Level 170 MG/DL LDL Cholesterol 108 MG/DL HDL Cholesterol 30.1 MG/DL Cholesterol/HDL Ratio 5.64 RATIO Imaging Last Impressions Chest X-Ray 08/06/16 8560 Signed Impressions: Service Date/Time: , August 06, 2016 23:24 - CONCLUSION: 1. Cardiomegaly. No acute pulmonary disease. Trevon Read MD Assessment and Plan Problem List: (1) Chest pain Assessment and Plan: none currently (2) Elevated troponin I level (3) NSTEMI (non-ST elevated myocardial infarction) (4) CAD (coronary artery disease) Assessment and Plan: on asa/statin/bb; see cath report for details. Assessment and Plan Surgery consult pending, if not a candidate for redo-cabg, Dr. Solares will consider PCI for wednesday. Rogers Sanderson MD Aug 08, 2016 10:18
--- NOTE | 2016-08-08 10:32 | HHI.PR ---
Subjective Remarks She has been seen and examined this morning. His vitals are stable. Case discussed with nurse, no overnight events. He denies CP. Objective Vital Signs Date Time Temp Pulse Resp B/P Pulse Ox O2 Delivery O2 Flow Rate FiO2 08/08/16 10:08 58 08/08/16 09:31 60 08/08/16 08:14 52 08/08/16 07:52 98.1 58 19 112/56 98 08/08/16 07:52 60 08/08/16 05:00 62 08/08/16 04:00 54 08/08/16 04:00 98.3 59 19 104/57 99 08/08/16 03:00 52 08/08/16 02:00 52 08/08/16 01:00 54 08/08/16 00:00 98.0 52 18 130/64 99 08/08/16 00:00 52 08/07/16 23:00 54 08/07/16 22:00 52 08/07/16 21:00 54 08/07/16 20:00 98.2 56 20 130/62 99 08/07/16 20:00 52 08/07/16 18:00 56 08/07/16 17:00 58 08/07/16 16:00 58 08/07/16 15:00 98.9 54 18 130/50 99 08/07/16 15:00 54 08/07/16 14:00 58 08/07/16 13:00 48 08/07/16 12:00 52 08/07/16 11:30 48 I/O 08/07/16 08/07/16 08/07/16 08/08/16 08/08/16 08/08/16 07:00 15:00 23:00 07:00 15:00 23:00 Intake Total 240 ml Balance 240 ml Intake Oral 240 ml # Voids 2 1 # Bowel Movements 0 Result Diagram: 08/08/16 0416 08/08/16 0416 Imaging Last Impressions Chest X-Ray 08/06/16 9345 Signed Impressions: Service Date/Time: August 23:24 - CONCLUSION: 1. Cardiomegaly. No acute pulmonary disease. Trevon Read MD Objective Remarks GENERAL: well appearing NAD SKIN: Warm and dry, chronic venous statis LE. HEAD: Normocephalic. EYES: No scleral icterus. No injection or drainage. NECK: Supple, trachea midline. No JVD or lymphadenopathy. CARDIOVASCULAR: Regular rate and rhythm without murmurs, gallops, or rubs. RESPIRATORY: Breath sounds equal bilaterally. No accessory muscle use. GASTROINTESTINAL: Abdomen soft, non-tender, nondistended. MUSCULOSKELETAL: No cyanosis, or edema. BACK: Nontender without obvious deformity. No CVA tenderness. A/P Problem List: (1) NSTEMI (non-ST elevated myocardial infarction) ICD Code: I21.4 (2) Chest pain ICD Code: R07.9 (3) Elevated troponin I level ICD Code: R74.8 (4) Renal insufficiency ICD Code: N28.9 Assessment and Plan 86-year-old male with: NSTEMI with history of CAD- s/p CABG - Troponins 0.07, 0.82, 1.20. BNP 297. - Patient was evaluated by cardiology. Catheter placed on hold due to renal insufficiency. If patient is a good surgical candidate surgical revascularization may be best option. CT surgeon was consulted. If not a surgical candidate to consider PCI on Wednesday. - Echo showed EF of 40-45%. Diffuse hypokinesis. Grade 1 diastolic dysfunction. Mild regurgitation of aortic valve. - Continue atorvastatin 80 mg daily, aspirin 325 mg daily, metoprolol 50 mg twice a day. Ava therapy for symptomatic chest pain. Status post heparin drip. Renal insufficiency on admission - Improving with IV hydration -history of prostate cancer- f/u as outpatient -DVT prophylaxis Discharge Planning d/c pending further workup by cardiology Magali Meier MD R3 Aug 08, 2016 10:32
[2016-08-08] MEDS: SODIUM CHLOR 0.9% 1000 ML INJ 1,000 ML IV SCH ×3 (10:40→23:51)
--- NOTE | 2016-08-08 14:05 | EKG ---
Date Performed: 08/08/2016 Time Performed: 08:07:52 PTAGE: 86 years EKG: Sinus bradycardia. Prolonged QT interval Inferior infarct - age undetermined Possible anter ior infarct - age undetermined Lateral ST-T changes may be due to myocardial ischemia Compared to pre vious tracing, Q waves are slightly more prominent inferiorly in lead III, otherwise no significant c hange Abnormal ECG PREVIOUS TRACING : 08/07/2016 05.32 DOCTOR: Rj Santos Interpretating Date/Time 08/08/2016 14:04:07
[2016-08-09] VITALS (25 sets, daily range): BP systolic 110–161; BP diastolic 57–77; PULSE 5–88; RESP 16–19; TEMP 97.5–98.6; O2SAT 97–98
[2016-08-09] MEDS: METOPROLOL TARTRATE 50 MG TAB PO SCH ×2 (00:03→09:23)
[2016-08-09] MEDS: TAMSULOSIN HCL 0.4 MG CAP PO SCH ×2 (00:03→21:50)
[2016-08-09] MEDS: SODIUM CHLORIDE 0.9% FLUSH 10 ML FLUSH IV FLUSH SCH ×3 (00:04→21:50)
[2016-08-09 05:59] LABS: BICARBONATE 26.2 MEQ/L (21.0-32.0); POTASSIUM 3.8 MEQ/L (3.5-5.1)
[2016-08-09] MEDS: NITROGLYCERIN 2% OINT 1 GM PACKET TOPICAL SCH ×2 (06:41)
--- NOTE | 2016-08-09 08:00 | PD.CAR.PN ---
CVT Progress Note Subjective/Hospital Course: Pt seen and examined Wednesday and full consult dictated. Apparently still pending in enrollment management manager. Discussed at length with patient and son. At this time, they are not interested in reoperative coronary bypass surgery. Agree with PCI per Dr. Solares as indicated. Thank you for allowing me to participate in the care of this very pleasant gentleman. Objective: Vital Signs Date Time Temp Pulse Resp B/P Pulse Ox O2 Delivery O2 Flow Rate FiO2 08/09/16 05:12 98.6 57 16 124/62 98 08/09/16 05:00 62 08/09/16 04:00 62 08/09/16 03:00 58 08/09/16 02:00 52 08/09/16 01:00 62 08/09/16 00:02 98.6 57 19 139/57 98 08/09/16 00:00 59 08/08/16 23:00 58 08/08/16 22:00 54 08/08/16 21:13 98.9 67 19 150/67 97 08/08/16 21:00 72 08/08/16 20:00 56 08/08/16 19:00 69 08/08/16 18:02 59 08/08/16 17:52 67 08/08/16 16:07 60 08/08/16 15:29 61 08/08/16 15:29 97.5 60 19 116/59 97 08/08/16 14:22 54 08/08/16 13:04 51 08/08/16 12:11 54 08/08/16 11:16 98.0 58 19 108/56 98 08/08/16 11:16 58 08/08/16 10:08 58 08/08/16 09:31 60 08/08/16 08:14 52 Labs: Laboratory Tests Test 08/09/16 04:50 Sodium Level 141 MEQ/L (136-145) Potassium Level 3.8 MEQ/L (3.5-5.1) Chloride Level 106 MEQ/L (98-107) Carbon Dioxide Level 26.2 MEQ/L (21.0-32.0) Anion Gap 9 MEQ/L (5-15) Blood Urea Nitrogen 31 MG/DL (7-18) Creatinine 1.57 MG/DL (0.60-1.30) Estimat Glomerular Filtration 42 ML/MIN (>89) Rate Random Glucose 82 MG/DL (74-106) Calcium Level 9.3 MG/DL (8.5-10.1) Result Diagram: 08/08/16 0416 08/09/16 0450 (1) Chest pain Plan: none currently (2) Elevated troponin I level (3) NSTEMI (non-ST elevated myocardial infarction) (4) CAD (coronary artery disease) Plan: on asa/statin/bb; see cath report for details. Mark Resendiz MD Aug 09, 2016 08:00
--- NOTE | 2016-08-09 09:13 | PD.CARD.PN ---
Subjective Subjective Remarks Pt feels well, no complaints Objective Medications Administered Medications Medications (Trade) Dose Ordered Sig/Chuyita Route PRN Reason Start Time Stop Time Status Last Admin Dose Admin Sodium Chloride (NS Flush) 2 ml BID IV FLUSH 08/07/16 09:00 08/09/16 00:04 Aspirin (Ecotrin Ec) 325 mg DAILY PO 08/07/16 09:00 08/08/16 09:00 Metoprolol Tartrate (Lopressor) 50 mg Q12HR PO 08/07/16 09:00 08/09/16 00:03 Nitroglycerin (Nitroglycerin 2% Oint) 1 inch Q6HR TOPICAL 08/07/16 08:00 08/09/16 06:41 Atorvastatin Calcium 80 mg 80 mg DAILY PO 08/07/16 09:00 08/08/16 08:58 Sodium Chloride (NS 1000 ml Inj) 1,000 ml @ 100 mls/hr Q10H IV 08/07/16 07:51 08/12/16 07:50 08/08/16 13:51 Tamsulosin HCl 0.4 mg 0.4 mg HS PO 08/07/16 21:00 08/09/16 00:03 Sodium Chloride (NS 1000 ml Inj) 1,000 ml @ 75 mls/hr [id number] IV 08/07/16 08:00 08/08/16 10:40 Vital Signs / I&O Vital Signs Date Time Temp Pulse Resp B/P Pulse Ox O2 Delivery O2 Flow Rate FiO2 08/09/16 08:07 61 08/09/16 07:55 60 08/09/16 07:55 98.1 61 16 135/60 98 08/09/16 05:12 98.6 57 16 124/62 98 08/09/16 05:00 62 08/09/16 04:00 62 08/09/16 03:00 58 08/09/16 02:00 52 08/09/16 01:00 62 08/09/16 00:02 98.6 57 19 139/57 98 08/09/16 00:00 59 08/08/16 23:00 58 08/08/16 22:00 54 08/08/16 21:13 98.9 67 19 150/67 97 08/08/16 21:00 72 08/08/16 20:00 56 08/08/16 19:00 69 08/08/16 18:02 59 08/08/16 17:52 67 08/08/16 16:07 60 08/08/16 15:29 61 08/08/16 15:29 97.5 60 19 116/59 97 08/08/16 14:22 54 08/08/16 13:04 51 08/08/16 12:11 54 08/08/16 11:16 98.0 58 19 108/56 98 08/08/16 11:16 58 08/08/16 10:08 58 08/08/16 09:31 60 I/O 08/08/16 08/08/16 08/08/16 08/09/16 08/09/16 08/09/16 07:00 15:00 23:00 07:00 15:00 23:00 Intake Total 600 ml 240 ml Balance 600 ml 240 ml Intake Oral 600 ml 240 ml IV Total 0 ml # Voids 3 2 # Bowel Movements 0 0 Physical Exam GENERAL: This is a well-nourished, well-developed patient, in no apparent distress. CARDIOVASCULAR: Regular rate and rhythm without murmurs, gallops, or rubs. RESPIRATORY: Clear to auscultation. Breath sounds equal bilaterally. No wheezes , rales, or rhonchi. GASTROINTESTINAL: Abdomen soft, non-tender, nondistended. Normal active bowel sounds MUSCULOSKELETAL: Extremities without clubbing, cyanosis, or edema. NEURO: Alert & Oriented x4 to person, place, time, situation. Moves all ext x4 Laboratory Laboratory Tests Test 08/09/16 04:50 Sodium Level 141 MEQ/L Potassium Level 3.8 MEQ/L Chloride Level 106 MEQ/L Carbon Dioxide Level 26.2 MEQ/L Anion Gap 9 MEQ/L Blood Urea Nitrogen 31 MG/DL Creatinine 1.57 MG/DL Estimat Glomerular Filtration 42 ML/MIN Rate Random Glucose 82 MG/DL Calcium Level 9.3 MG/DL Imaging Last Impressions Chest X-Ray 08/06/16 3530 Signed Impressions: Service Date/Time: August 23:24 - CONCLUSION: 1. Cardiomegaly. No acute pulmonary disease. Trevon Read MD Assessment and Plan Problem List: (1) Chest pain Assessment and Plan: none currently (2) Elevated troponin I level (3) NSTEMI (non-ST elevated myocardial infarction) (4) CAD (coronary artery disease) Assessment and Plan: on asa/statin/bb; see cath report for details. Assessment and Plan Pt apparently declined redo CABG; Dr. Solares will consider PCI for wednesday; will leave pt NPO past midnight. Rogers Sanderson MD Aug 09, 2016 09:13
[2016-08-09] MEDS: ASPIRIN EC 325 MG TABEC PO SCH (09:23)
[2016-08-09] MEDS: ATORVASTATIN 40 MG TAB PO SCH (09:23)
[2016-08-09] MEDS: SODIUM CHLOR 0.9% 1000 ML INJ 1,000 ML IV SCH ×5 (09:51→22:30)
[2016-08-09] MEDS ORDERED: PILL SPLITTER OTHER PRN (10:30)
--- NOTE | 2016-08-09 10:58 | HHI.PR ---
Subjective Remarks Follow-up for NSTEMI. Patient's son is at the bedside. He stated that patient wants him to translate for him since he speaks Telugu. Patient denies any chest pain, shortness of breathing, palpitation or lightheadedness or dizziness. Patient stated that he was water has good urine output. He has no other complaints. Patient declined CABG and once a PCI. Patient stated that he lived a good life and does not want an invasive procedure. Objective Vitals Vital Signs Date Time Temp Pulse Resp B/P Pulse Ox O2 Delivery O2 Flow Rate FiO2 08/09/16 08:07 61 08/09/16 07:55 60 08/09/16 07:55 98.1 61 16 135/60 98 08/09/16 05:12 98.6 57 16 124/62 98 08/09/16 05:00 62 08/09/16 04:00 62 08/09/16 03:00 58 08/09/16 02:00 52 08/09/16 01:00 62 08/09/16 00:02 98.6 57 19 139/57 98 08/09/16 00:00 59 08/08/16 23:00 58 08/08/16 22:00 54 08/08/16 21:13 98.9 67 19 150/67 97 08/08/16 21:00 72 08/08/16 20:00 56 08/08/16 19:00 69 08/08/16 18:02 59 08/08/16 17:52 67 08/08/16 16:07 60 08/08/16 15:29 61 08/08/16 15:29 97.5 60 19 116/59 97 08/08/16 14:22 54 08/08/16 13:04 51 08/08/16 12:11 54 08/08/16 11:16 98.0 58 19 108/56 98 08/08/16 11:16 58 I/O 08/08/16 08/08/16 08/08/16 08/09/16 08/09/16 08/09/16 07:00 15:00 23:00 07:00 15:00 23:00 Intake Total 600 ml 240 ml Balance 600 ml 240 ml Intake Oral 600 ml 240 ml IV Total 0 ml # Voids 3 2 # Bowel Movements 0 0 Result Diagram: 08/08/16 0416 08/09/16 0450 Objective Remarks GENERAL:in NAD CARDIOVASCULAR: Regular rate and rhythm without murmurs, gallops, or rubs. RESPIRATORY: Breath sounds equal bilaterally. No accessory muscle use. GASTROINTESTINAL: Abdomen soft, non-tender, nondistended. MUSCULOSKELETAL: No cyanosis, or edema. BACK: Nontender without obvious deformity. No CVA tenderness. Medications and IVs Current Medications Aspirin (Aspirin Chew) 162 mg ONCE ONCE PO Last administered on 08/06/16 23:33 ; Start 08/06/16 at 23:15; Stop 08/06/16 at 23:19; Status DC Sodium Chloride (NS Flush) 2 ml UNSCH PRN IVF FLUSH AFTER USING IV ACCESS; Start 08/06/16 at 23:15; Stop 08/07/16 at 00:19; Status DC Nitroglycerin (Nitrostat Sl) 0.4 mg Q5M SL Last administered on 08/06/16 23:33 ; Start 08/06/16 at 23:15; Stop 08/06/16 at 23:26; Status DC Sodium Chloride (NS Flush) 2 ml UNSCH PRN IV FLUSH FLUSH AFTER USING IV ACCESS ; Start 08/07/16 at 00:15 Sodium Chloride (NS Flush) 2 ml BID IV FLUSH Last administered on 08/09/16 09: 00; Start 08/07/16 at 09:00 Naloxone HCl (Narcan Inj) 0.4 mg UNSCH PRN IV SEE LABEL COMMENTS; Start at 00:15 Aspirin (Ecotrin Ec) 325 mg DAILY PO Last administered on 08/09/16 09:23; Start 08/07/16 at 09:00; Stop 08/09/16 at 10:02; Status DC Nitroglycerin (Nitrostat Sl) 0.4 mg Q5M PRN SL CHEST PAIN; Start 08/07/16 at 00: 15 Carvedilol (Coreg) 3.125 mg ONCE ONCE PO Last administered on 08/07/16 00:48; Start 08/07/16 at 00:30; Stop 08/07/16 at 00:31; Status DC Heparin Sodium (Porcine) (Heparin Inj) 5,000 units UNSCH PRN IV APTT LESS THAN 25; Start 08/07/16 at 13:15; Stop 08/07/16 at 13:15; Status DC Heparin Sodium (Porcine) 2500 units 2,500 units UNSCH PRN IV APTT 25 TO 39; Start 08/07/16 at 13:15; Stop 08/07/16 at 13:15; Status DC Heparin Sodium/ Dextrose (Heparin-D5W Inj) 250 ml @ 0 mls/hr TITRATE IV ; Start 08/07/16 at 07:15; Stop 08/07/16 at 11:54; Status DC Metoprolol Tartrate (Lopressor) 50 mg Q12HR PO Last administered on 08/09/16 09 :23; Start 08/07/16 at 09:00; Stop 08/09/16 at 10:02; Status DC Nitroglycerin (Nitroglycerin 2% Oint) 1 inch Q6HR TOPICAL Last administered on 08/09/16 06:41; Start 08/07/16 at 08:00; Stop 08/09/16 at 10:08; Status DC Atorvastatin Calcium 80 mg 80 mg DAILY PO Last administered on 08/09/16 09:23; Start 08/07/16 at 09:00 Sodium Chloride (NS 1000 ml Inj) 1,000 ml @ 100 mls/hr Q10H IV Last administered on 08/08/16 13:51; Start 08/07/16 at 07:51; Stop 08/12/16 at 07:50 Tamsulosin HCl 0.4 mg 0.4 mg HS PO Last administered on 08/09/16 00:03; Start 08/07/16 at 21:00 Sodium Chloride 1,000 ml @ 100 mls/hr Q10H IV Last administered on 08/08/16 10 :40; Start 08/07/16 at 08:00 Sodium Chloride 1,000 ml @ 30 mls/hr Q24H IV ; Start 08/07/16 at 10:00; Stop 08/09/16 at 09:58; Status DC Heparin Sodium/ Sodium Chloride (Heparin-NS/Pf Inj) 500 ml @ As Directed STK- MED ONCE .ROUTE ; Start 08/07/16 at 10:35; Stop 08/07/16 at 10:36; Status DC Midazolam HCl (Versed Inj) 2 mg STK-MED ONCE .ROUTE Last administered on 11:13; Start 08/07/16 at 10:48; Stop 08/07/16 at 10:49; Status DC Heparin Sodium (Porcine) 54341 units 10,000 units STK-MED ONCE .ROUTE ; Start at 10:48; Stop 08/07/16 at 10:49; Status DC Nitroglycerin (Nitroglycerin Inj) 5 ml @ As Directed STK-MED ONCE .ROUTE ; Start 08/07/16 at 10:48; Stop 08/07/16 at 10:49; Status DC Fentanyl Citrate 100 mcg 100 mcg STK-MED ONCE .ROUTE Last administered on 11:14; Start 08/07/16 at 10:49; Stop 08/07/16 at 10:50; Status DC Heparin Sodium/ Sodium Chloride (Heparin-NS/Pf Inj) 500 ml @ As Directed STK- MED ONCE .ROUTE ; Start 08/07/16 at 10:56; Stop 08/07/16 at 10:57; Status DC Hydralazine HCl 20 mg 20 mg STK-MED ONCE .ROUTE Last administered on 08/07/16 11:51; Start 08/07/16 at 11:50; Stop 08/07/16 at 11:51; Status DC Sodium Chloride (NS 1000 ml Inj) 1,000 ml @ 100 mls/hr Q10H IV ; Start 08/07/16 at 11:52; Stop 08/07/16 at 21:51; Status DC Miscellaneous Information 1 ONCE ONCE XX ; Start 08/07/16 at 12:00; Stop at 12:01; Status DC Lorazepam (Ativan Inj) 0.5 mg UNSCH PRN IV ANXIETY; Start 08/07/16 at 12:00; Stop 08/08/16 at 11:59; Status DC Atropine Sulfate 0.5 mg 0.5 mg UNSCH PRN IV VAGAL REPONSE; Start 08/07/16 at 12: 00 Sodium Chloride (NS 250 ml Inj) 250 ml @ 500 mls/hr ONCE PRN IV VAGAL REPONSE ; Start 08/07/16 at 12:00; Stop 08/08/16 at 11:59; Status DC Metoclopramide HCl (Reglan Inj) 10 mg Q4H PRN IV NAUSEA; Start 08/07/16 at 12:00 Ondansetron HCl (Zofran Inj) 4 mg Q4H PRN IV NAUSEA; Start 08/07/16 at 12:00 Lidocaine HCl (Xylocaine 1% Inj (50 ml)) 10 ml UNSCH PRN INFIL SHEATH REMOVAL; Start 08/07/16 at 12:00; Stop 08/08/16 at 11:59; Status DC Bacitracin (Bacitracin Oint Packet) 0.9 gm ONCE ONCE TOP ; Start 08/07/16 at 12: 00; Stop 08/07/16 at 12:01; Status DC Iohexol (OMNIPAQUE 350 INJ (Wireless Sales Consultant)) 100 ml STK-MED ONCE OTHER ; Start at 12:38; Stop 08/07/16 at 12:39; Status DC Morphine Sulfate (Morphine Inj) 4 mg STK-MED ONCE .ROUTE Last administered on t 12:44; Start 08/07/16 at 12:44; Stop 08/07/16 at 12:45; Status DC Morphine Sulfate (Morphine Inj) 1 mg Q1H PRN IV PUSH PAIN 1-10; Start 08/07/16 at 13:15 Midazolam HCl (Versed Inj) 0.5 mg ONCE ONCE IV PUSH ; Start 08/07/16 at 13:15; Stop 08/07/16 at 13:16; Status DC Fentanyl Citrate (fentaNYL INJ) 25 mcg ONCE ONCE IV PUSH ; Start 08/07/16 at 13: 15; Stop 08/07/16 at 13:16; Status DC Hydralazine HCl (Apresoline Inj) 20 mg ONCE ONCE IV PUSH ; Start 08/07/16 at 13: 15; Stop 08/07/16 at 13:16; Status DC Aspirin (Ecotrin Ec) 81 mg DAILY PO ; Start 08/10/16 at 09:00 Metoprolol Tartrate (Lopressor) 12.5 mg Q12HR PO ; Start 08/09/16 at 21:00 Clopidogrel Bisulfate (Plavix) 600 mg ONCE ONCE PO ; Start 08/09/16 at 11:00; Stop 08/09/16 at 11:01 Clopidogrel Bisulfate (Plavix) 75 mg DAILY PO ; Start 08/10/16 at 09:00 Ferrous Sulfate (Ferrous Sulfate) 325 mg DAILY PO ; Start 08/09/16 at 11:00 Isosorbide Mononitrate (Imdur) 60 mg DAILY@0700 PO ; Start 08/09/16 at 11:00 Miscellaneous (Pill Splitter) 1 ea UNSCH PRN OTHER SEE LABEL COMMENTS; Start at 10:30 A/P Problem List: (1) NSTEMI (non-ST elevated myocardial infarction) ICD Code: I21.4 Status: Acute Assessment and Plan 86-year-old male with: NSTEMI with history of CAD- s/p CABG - Troponins 0.07, 0.82, 1.20. BNP 297. - Patient was evaluated by cardiology. Catheter placed on hold due to renal insufficiency. If patient is a good surgical candidate surgical revascularization may be best option. CT surgeon was consulted and patient declined CABG. - Echo showed EF of 40-45%. Diffuse hypokinesis. Grade 1 diastolic dysfunction. Mild regurgitation of aortic valve. - Continue atorvastatin 80 mg daily, aspirin 325 mg daily, metoprolol 50 mg twice a day. Ava therapy for symptomatic chest pain. Status post heparin drip. -Patient scheduled for PCI tomorrow with Dr. Solares. Renal insufficiency on admission - Improving with IV hydration -He has good urine output. Continue to monitor urine output and creatinine. -history of prostate cancer- f/u as outpatient -DVT prophylaxis Discharge Planning Patient scheduled for PCI tomorrow. Barbara Ortiz MD Aug 09, 2016 10:58
[2016-08-09] MEDS ORDERED: CLOPIDOGREL 300 MG TAB PO ONE (11:00)
[2016-08-09] MEDS: FERROUS SULFATE 325 MG (65 MG ELEMENTAL IRON) TAB PO SCH (11:39)
[2016-08-09] MEDS: ISOSORBIDE MONONITRATE 60 MG TAB PO SCH (11:39)
[2016-08-09] MEDS: METOPROLOL TARTRATE 25 MG TAB PO SCH (21:50)
[2016-08-10] VITALS (23 sets, daily range): BP systolic 124–176; BP diastolic 60–89; PULSE 52–97; RESP 14–18; TEMP 98.1–98.9; O2SAT 93–98
[2016-08-10] MEDS: SODIUM CHLOR 0.9% 1000 ML INJ 1,000 ML IV SCH ×6 (05:51→23:11)
[2016-08-10] MEDS: ISOSORBIDE MONONITRATE 60 MG TAB PO SCH (06:06)
[2016-08-10 06:39] LABS: HEMATOCRIT 33.5 % (39.0-51.0); MEAN CELL VOLUME 85.5 FL (80.0-100.0); MEAN CORPUSCULAR HGB CONC 32.8 % (32.0-36.0); PLATELET COUNT 183 TH/MM3 (150-450); RED BLOOD COUNT 3.92 MIL/MM3 (4.50-5.90); RED CELL DISTRIBUTION WIDTH 16.7 % (11.6-17.2); REVIEW FLAG FINAL; WHITE BLOOD COUNT 7.1 TH/MM3 (4.0-11.0)
[2016-08-10 07:00] LABS: P2Y12 REACTION UNITS (PRU) 278 PRU (194-418)
[2016-08-10 07:03] LABS: POTASSIUM 3.9 MEQ/L (3.5-5.1)
--- NOTE | 2016-08-10 08:14 | PD.CARD.PN ---
Subjective Subjective Remarks patient is Sammarinese-speaking and communication difficult. Resting comfortably in a chair. Objective Medications Current Medications Medications (Trade) Dose Ordered Sig/Chuyita Route Start Time Stop Time Status Last Admin (NS Flush) 2 ml UNSCH PRN IV FLUSH 08/07/16 00:15 (NS Flush) 2 ml BID IV FLUSH 08/07/16 09:00 08/09/16 21:50 (Narcan Inj) 0.4 mg UNSCH PRN IV 08/07/16 00:15 (Nitrostat Sl) 0.4 mg Q5M PRN SL 08/07/16 00:15 Atorvastatin Calcium 80 mg 80 mg DAILY PO 08/07/16 09:00 08/09/16 09:23 (NS 1000 ml Inj) 1,000 ml @ 100 mls/hr Q10H IV 08/07/16 07:51 08/12/16 07:50 08/10/16 05:51 Tamsulosin HCl 0.4 mg 0.4 mg HS PO 08/07/16 21:00 08/09/16 21:50 (NS 1000 ml Inj) 1,000 ml @ 100 mls/hr Q10H IV 08/07/16 08:00 08/10/16 07:30 (Atropine Inj) 0.5 mg UNSCH PRN IV 08/07/16 12:00 (Reglan Inj) 10 mg Q4H PRN IV 08/07/16 12:00 (Zofran Inj) 4 mg Q4H PRN IV 08/07/16 12:00 (Morphine Inj) 1 mg Q1H PRN IV PUSH 08/07/16 13:15 (Ecotrin Ec) 81 mg DAILY PO 08/10/16 09:00 (Lopressor) 12.5 mg Q12HR PO 08/09/16 21:00 08/09/16 21:50 (Plavix) 75 mg DAILY PO 08/10/16 09:00 (Ferrous Sulfate) 325 mg DAILY PO 08/09/16 11:00 08/09/16 11:39 (Imdur) 60 mg DAILY@0700 PO 08/09/16 11:00 08/10/16 06:06 (Pill Splitter) 1 ea UNSCH PRN OTHER 08/09/16 10:30 Vital Signs / I&O Vital Signs Date Time Temp Pulse Resp B/P Pulse Ox O2 Delivery O2 Flow Rate FiO2 08/10/16 06:00 60 08/10/16 05:00 70 08/10/16 04:12 98.2 71 18 125/66 97 08/10/16 04:00 71 08/10/16 03:00 74 08/10/16 02:00 66 08/10/16 01:42 175/89 08/10/16 01:00 60 08/10/16 01:00 98.2 86 14 176/86 98 08/10/16 00:00 58 08/09/16 23:00 68 08/09/16 22:00 70 08/09/16 21:00 70 08/09/16 21:00 98.5 66 16 110/57 97 08/09/16 20:00 73 08/09/16 19:00 62 08/09/16 18:20 62 08/09/16 17:13 88 08/09/16 16:48 72 08/09/16 15:39 63 08/09/16 15:39 97.5 60 16 116/59 98 08/09/16 14:36 65 08/09/16 13:12 56 08/09/16 12:34 56 08/09/16 11:54 98.2 58 16 161/77 97 08/09/16 11:54 58 08/09/16 10:58 63 08/09/16 09:02 70 08/09/16 08:07 61 I/O 08/09/16 08/09/16 08/09/16 08/10/16 08/10/16 08/10/16 07:00 15:00 23:00 07:00 15:00 23:00 Intake Total 240 ml 720 ml 830 ml Balance 240 ml 720 ml 830 ml Intake Oral 240 ml 720 ml 480 ml IV Total 0 ml 350 ml # Voids 2 3 3 # Bowel Movements 0 1 0 Physical Exam EYES: Pupils equal and round.. ENT: No nasal bleeding or discharge. Mucous membranes pink and moist. NECK: Trachea midline. No JVD. CARDIOVASCULAR: Regular rate and rhythm. no murmur. RESPIRATORY: No accessory muscle use. Clear to auscultation. Breath sounds equal bilaterally. GASTROINTESTINAL: Abdomen soft, non-tender, nondistended. Hepatic and splenic margins not palpable. MUSCULOSKELETAL: Extremities without clubbing, cyanosis, or edema. No obvious deformities. NEUROLOGICAL: Awake and alert. No obvious cranial nerve deficits. Motor grossly within normal limits. Laboratory Laboratory Tests Test 08/09/16 08/09/16 08/09/16 08/10/16 12:07 12:11 15:09 05:35 Blood Type A POSITIVE A POSITIVE Antibody Screen POSITIVE Antigen Identification E Antigen - NEGATIVE Crossmatch Leukocyte-Reduced Red Blood Cells Blood Bank Comment Antibody Identification Anti-E White Blood Count 7.1 TH/MM3 Red Blood Count 3.92 MIL/MM3 Hemoglobin 11.0 GM/DL Hematocrit 33.5 % Mean Corpuscular Volume 85.5 FL Mean Corpuscular Hemoglobin 28.0 PG Mean Corpuscular Hemoglobin 32.8 % Concent Red Cell Distribution Width 16.7 % Platelet Count 183 TH/MM3 Mean Platelet Volume 9.5 FL Platelet Function P2Y12 React 278 PRU Units Sodium Level 139 MEQ/L Potassium Level 3.9 MEQ/L Chloride Level 105 MEQ/L Carbon Dioxide Level 28.0 MEQ/L Anion Gap 6 MEQ/L Blood Urea Nitrogen 34 MG/DL Creatinine 1.59 MG/DL Estimat Glomerular Filtration 41 ML/MIN Rate Random Glucose 88 MG/DL Calcium Level 9.0 MG/DL Imaging Last Impressions Chest X-Ray 08/06/16 2193 Signed Impressions: Service Date/Time: , August 06, 2016 23:24 - CONCLUSION: 1. Cardiomegaly. No acute pulmonary disease. Trevon Read MD Assessment and Plan Problem List: (1) Chest pain (2) Elevated troponin I level (3) NSTEMI (non-ST elevated myocardial infarction) (4) CAD (coronary artery disease) Assessment and Plan 86yo M with history CAD, CABG and HLD admitted 3 days ago for unstable angina. cardiac catheterization revealed severe 3 vessel disease with occlusion of all grafts. NSTEMI- +severe 3 vessel disease, occlusion of bypass grafts. EF 40-45%; diffuse hypokinesis.patient declines further surgical intervention; agrees to PCI. currently NPO, plan for PCI today. creatinine- 1.59 CAD- prior CABG. cont asa, statin, bb aortic aneurysm- infrarenal, moderate. follow in outpatient setting. Lacey Lee Aug 10, 2016 08:14
--- NOTE | 2016-08-10 08:39 | MB ---
cc: MARGARETH ZUNIGA MD DATE OF CONSULTATION 08/07/16 DATE OF 1930 HISTORY OF PRESENT ILLNESS An 86-year-old male originally from [facility] who lives with his son. He lives part of the year here in the [place] and also travels back to [facility]. He does not speak Bengali. He speaks Latin and Malawian. The son is at the bedside to assist with Interpretation. The patient has been complaining for some vague chest pain off and on for the past 6 months with worsening in nature over the past couple of weeks. He was seen by his primary care physician recently and was started on some isosorbide daily. Apparently, the patient had an episode of acute chest pain at rest on the day of admission associated with some nausea which radiated to his left arm. He was not diaphoretic. His EKG showed some ST and T-wave changes in the lateral leads. This is consistent with some lateral ischemia and his troponin was 0.82. He underwent cardiac catheterization today by Dr. Solares which showed left main disease of 20%, proximal LAD 0, mid distal LAD 90%, diagonal was 30, the circ was 100, OM 100. We were consulted to evaluate for coronary artery bypass grafting. PAST MEDICAL HISTORY The patients past medical history includes coronary artery disease, hyperlipidemia, benign prostatic hypertrophy. PAST SURGICAL HISTORY Surgeries include coronary artery bypass graft, the son mentioned 3 or 4 vessels in 1997. He had prostate surgery with chemotherapy in the late . He has had right knee surgery. He has had umbilical hernia repair, right inguinal hernia repair. ALLERGIES HE IS ALLERGIC TO DIPYRONE. MEDICATIONS Home medications include: 1. Flomax. 2. Simvastatin. 3. Isosorbide. FAMILY HISTORY Noncontributory. SOCIAL HISTORY Lives with his son. 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 REVIEW OF SYSTEMS As above in the HPI, otherwise, 12 systems unremarkable. PHYSICAL EXAMINATION VITAL SIGNS: On exam blood pressure 150/70 to 170/80, heart rate of 54. GENERAL: The patient is awake, alert, no acute distress. Again we have son at the bedside to help interpret. HEENT: Head is normocephalic, atraumatic. Oral mucosa pink, moist. NECK: Supple. No JVD. HEART: Heart sounds S1-S2. Regular rate and rhythm. No rubs, murmurs, gallops. LUNGS: Clear to auscultation. No wheezes, rales or rhonchi. ABDOMEN: Soft, nontender. No masses or organomegaly. EXTREMITIES: Reveal no edema. Good distal pulses. He does have some psoriasis and some plaquing to his lower extremities. LABORATORY FINDINGS Shows hemoglobin of 11, hematocrit of 36, white cell count 7.8, platelet count 200, sodium 144, potassium 4.4, BUN of 32, creatinine 1.60. Troponin 0.82. IMAGING STUDIES Chest x-ray showed some cardiomegaly. No acute process. CARDIOLOGY STUDIES EKG again showed some left ventricular hypertrophy, some poor R-wave progression, some ST changes in lateral leads. IMPRESSION This is an 86-year-old male with chest pain ruled in for a non-STEMI, underwent cardiac catheterization. We were consulted for evaluate for cardiac surgery. The son said he had a discussion with his father prior to my arrival that they had discussed that he would rather undergo PCI versus not undergoing any further cardiac open heart surgery. In the meantime he is on aspirin, beta marissa. If the patient should change his mind we can do further workup, however, with his advanced age the recommendation for possible PCI at this time. Dictated by SIVAKUMAR Dee Margareth SLATER /1:47 PM /8:38 AM
--- NOTE | 2016-08-10 08:43 | HHI.PR ---
Subjective Remarks Follow-up for chest pain Patient's son is at the bedside translating since patient only Belarusian. Patient denies any chest pain. He stated that when he spoke to his nephew he got very emotional and thinks that he felt a little chest pain but that resolved after he got off the phone. Denies any soreness of breathing, palpitation, lightheadedness dizziness. d/w Dr. Solares who stated that patient is scheduled for PCI later this morning and most likely if everything goes well can be discharged tomorrow. Objective Vitals Vital Signs Date Time Temp Pulse Resp B/P Pulse Ox O2 Delivery O2 Flow Rate FiO2 08/10/16 06:00 60 08/10/16 05:00 70 08/10/16 04:12 98.2 71 18 125/66 97 08/10/16 04:00 71 08/10/16 03:00 74 08/10/16 02:00 66 08/10/16 01:42 175/89 08/10/16 01:00 60 08/10/16 01:00 98.2 86 14 176/86 98 08/10/16 00:00 58 08/09/16 23:00 68 08/09/16 22:00 70 08/09/16 21:00 70 08/09/16 21:00 98.5 66 16 110/57 97 08/09/16 20:00 73 08/09/16 19:00 62 08/09/16 18:20 62 08/09/16 17:13 88 08/09/16 16:48 72 08/09/16 15:39 63 08/09/16 15:39 97.5 60 16 116/59 98 08/09/16 14:36 65 08/09/16 13:12 56 08/09/16 12:34 56 08/09/16 11:54 98.2 58 16 161/77 97 08/09/16 11:54 58 08/09/16 10:58 63 08/09/16 09:02 70 I/O 08/09/16 08/09/16 08/09/16 08/10/16 08/10/16 08/10/16 07:00 15:00 23:00 07:00 15:00 23:00 Intake Total 240 ml 720 ml 830 ml Balance 240 ml 720 ml 830 ml Intake Oral 240 ml 720 ml 480 ml IV Total 0 ml 350 ml # Voids 2 3 3 # Bowel Movements 0 1 0 Result Diagram: 08/10/1635 08/10/16534 Objective Remarks GENERAL:in NAD CARDIOVASCULAR: Regular rate and rhythm without murmurs, gallops, or rubs. RESPIRATORY: Breath sounds equal bilaterally. No accessory muscle use. GASTROINTESTINAL: Abdomen soft, non-tender, nondistended. MUSCULOSKELETAL: No cyanosis, or edema. BACK: Nontender without obvious deformity. No CVA tenderness. Medications and IVs Current Medications Aspirin (Aspirin Chew) 162 mg ONCE ONCE PO Last administered on 08/06/16 23:33 ; Start 08/06/16 at 23:15; Stop 08/06/16 at 23:19; Status DC Sodium Chloride (NS Flush) 2 ml UNSCH PRN IVF FLUSH AFTER USING IV ACCESS; Start 08/06/16 at 23:15; Stop 08/07/16 at 00:19; Status DC Nitroglycerin (Nitrostat Sl) 0.4 mg Q5M SL Last administered on 08/06/16 23:33 ; Start 08/06/16 at 23:15; Stop 08/06/16 at 23:26; Status DC Sodium Chloride (NS Flush) 2 ml UNSCH PRN IV FLUSH FLUSH AFTER USING IV ACCESS ; Start 08/07/16 at 00:15 Sodium Chloride (NS Flush) 2 ml BID IV FLUSH Last administered on 08/09/16 21: 50; Start 08/07/16 at 09:00 Naloxone HCl (Narcan Inj) 0.4 mg UNSCH PRN IV SEE LABEL COMMENTS; Start at 00:15 Aspirin (Ecotrin Ec) 325 mg DAILY PO Last administered on 08/09/16 09:23; Start 08/07/16 at 09:00; Stop 08/09/16 at 10:02; Status DC Nitroglycerin (Nitrostat Sl) 0.4 mg Q5M PRN SL CHEST PAIN; Start 08/07/16 at 00: 15 Carvedilol (Coreg) 3.125 mg ONCE ONCE PO Last administered on 08/07/16 00:48; Start 08/07/16 at 00:30; Stop 08/07/16 at 00:31; Status DC Heparin Sodium (Porcine) (Heparin Inj) 5,000 units UNSCH PRN IV APTT LESS THAN 25; Start 08/07/16 at 13:15; Stop 08/07/16 at 13:15; Status DC Heparin Sodium (Porcine) 2500 units 2,500 units UNSCH PRN IV APTT 25 TO 39; Start 08/07/16 at 13:15; Stop 08/07/16 at 13:15; Status DC Heparin Sodium/ Dextrose (Heparin-D5W Inj) 250 ml @ 0 mls/hr TITRATE IV ; Start 08/07/16 at 07:15; Stop 08/07/16 at 11:54; Status DC Metoprolol Tartrate (Lopressor) 50 mg Q12HR PO Last administered on 08/09/16 09 :23; Start 08/07/16 at 09:00; Stop 08/09/16 at 10:02; Status DC Nitroglycerin (Nitroglycerin 2% Oint) 1 inch Q6HR TOPICAL Last administered on 08/09/16 06:41; Start 08/07/16 at 08:00; Stop 08/09/16 at 10:08; Status DC Atorvastatin Calcium 80 mg 80 mg DAILY PO Last administered on 08/09/16 09:23; Start 08/07/16 at 09:00 Sodium Chloride (NS 1000 ml Inj) 1,000 ml @ 100 mls/hr Q10H IV Last administered on 08/10/16 05:51; Start 08/07/16 at 07:51; Stop 08/12/16 at 07:50 Tamsulosin HCl 0.4 mg 0.4 mg HS PO Last administered on 08/09/16 21:50; Start 08/07/16 at 21:00 Sodium Chloride 1,000 ml @ 100 mls/hr Q10H IV Last administered on 08/10/16 07 :30; Start 08/07/16 at 08:00 Sodium Chloride 1,000 ml @ 30 mls/hr Q24H IV ; Start 08/07/16 at 10:00; Stop 08/09/16 at 09:58; Status DC Heparin Sodium/ Sodium Chloride (Heparin-NS/Pf Inj) 500 ml @ As Directed STK- MED ONCE .ROUTE ; Start 08/07/16 at 10:35; Stop 08/07/16 at 10:36; Status DC Midazolam HCl (Versed Inj) 2 mg STK-MED ONCE .ROUTE Last administered on 11:13; Start 08/07/16 at 10:48; Stop 08/07/16 at 10:49; Status DC Heparin Sodium (Porcine) 50637 units 10,000 units STK-MED ONCE .ROUTE ; Start at 10:48; Stop 08/07/16 at 10:49; Status DC Nitroglycerin (Nitroglycerin Inj) 5 ml @ As Directed STK-MED ONCE .ROUTE ; Start 08/07/16 at 10:48; Stop 08/07/16 at 10:49; Status DC Fentanyl Citrate 100 mcg 100 mcg STK-MED ONCE .ROUTE Last administered on 11:14; Start 08/07/16 at 10:49; Stop 08/07/16 at 10:50; Status DC Heparin Sodium/ Sodium Chloride (Heparin-NS/Pf Inj) 500 ml @ As Directed STK- MED ONCE .ROUTE ; Start 08/07/16 at 10:56; Stop 08/07/16 at 10:57; Status DC Hydralazine HCl 20 mg 20 mg STK-MED ONCE .ROUTE Last administered on 08/07/16 11:51; Start 08/07/16 at 11:50; Stop 08/07/16 at 11:51; Status DC Sodium Chloride (NS 1000 ml Inj) 1,000 ml @ 100 mls/hr Q10H IV ; Start 08/07/16 at 11:52; Stop 08/07/16 at 21:51; Status DC Miscellaneous Information 1 ONCE ONCE XX ; Start 08/07/16 at 12:00; Stop at 12:01; Status DC Lorazepam (Ativan Inj) 0.5 mg UNSCH PRN IV ANXIETY; Start 08/07/16 at 12:00; Stop 08/08/16 at 11:59; Status DC Atropine Sulfate 0.5 mg 0.5 mg UNSCH PRN IV VAGAL REPONSE; Start 08/07/16 at 12: 00 Sodium Chloride (NS 250 ml Inj) 250 ml @ 500 mls/hr ONCE PRN IV VAGAL REPONSE ; Start 08/07/16 at 12:00; Stop 08/08/16 at 11:59; Status DC Metoclopramide HCl (Reglan Inj) 10 mg Q4H PRN IV NAUSEA; Start 08/07/16 at 12:00 Ondansetron HCl (Zofran Inj) 4 mg Q4H PRN IV NAUSEA; Start 08/07/16 at 12:00 Lidocaine HCl (Xylocaine 1% Inj (50 ml)) 10 ml UNSCH PRN INFIL SHEATH REMOVAL; Start 08/07/16 at 12:00; Stop 08/08/16 at 11:59; Status DC Bacitracin (Bacitracin Oint Packet) 0.9 gm ONCE ONCE TOP ; Start 08/07/16 at 12: 00; Stop 08/07/16 at 12:01; Status DC Iohexol (OMNIPAQUE 350 INJ (Inbound Call Center Representative)) 100 ml STK-MED ONCE OTHER ; Start at 12:38; Stop 08/07/16 at 12:39; Status DC Morphine Sulfate (Morphine Inj) 4 mg STK-MED ONCE .ROUTE Last administered on 12:44; Start 08/07/16 at 12:44; Stop 08/07/16 at 12:45; Status DC Morphine Sulfate (Morphine Inj) 1 mg Q1H PRN IV PUSH PAIN 1-10; Start 08/07/16 at 13:15 Midazolam HCl (Versed Inj) 0.5 mg ONCE ONCE IV PUSH ; Start 08/07/16 at 13:15; Stop 08/07/16 at 13:16; Status DC Fentanyl Citrate (fentaNYL INJ) 25 mcg ONCE ONCE IV PUSH ; Start 08/07/16 at 13: 15; Stop 08/07/16 at 13:16; Status DC Hydralazine HCl (Apresoline Inj) 20 mg ONCE ONCE IV PUSH ; Start 08/07/16 at 13: 15; Stop 08/07/16 at 13:16; Status DC Aspirin (Ecotrin Ec) 81 mg DAILY PO ; Start 08/10/16 at 09:00 Metoprolol Tartrate (Lopressor) 12.5 mg Q12HR PO Last administered on 08/09/16 21:50; Start 08/09/16 at 21:00 Clopidogrel Bisulfate (Plavix) 600 mg ONCE ONCE PO Last administered on 11:39; Start 08/09/16 at 11:00; Stop 08/09/16 at 11:01; Status DC Clopidogrel Bisulfate (Plavix) 75 mg DAILY PO ; Start 08/10/16 at 09:00 Ferrous Sulfate (Ferrous Sulfate) 325 mg DAILY PO Last administered on 11:39; Start 08/09/16 at 11:00 Isosorbide Mononitrate (Imdur) 60 mg DAILY@0700 PO Last administered on 06:06; Start 08/09/16 at 11:00 Miscellaneous (Pill Splitter) 1 ea UNSCH PRN OTHER SEE LABEL COMMENTS; Start at 10:30 A/P Problem List: (1) NSTEMI (non-ST elevated myocardial infarction) ICD Code: I21.4 Status: Acute Assessment and Plan 86-year-old male with: NSTEMI with history of CAD- s/p CABG - Troponins 0.07, 0.82, 1.20. BNP 297. - Patient was evaluated by cardiology. CT surgeon was consulted and patient declined CABG. - Echo showed EF of 40-45%. Diffuse hypokinesis. Grade 1 diastolic dysfunction. Mild regurgitation of aortic valve. - Continue atorvastatin 80 mg daily, aspirin 325 mg daily, metoprolol 50 mg twice a day. Ava therapy for symptomatic chest pain. Status post heparin drip. -Patient scheduled for PCI today with Dr. Solares. Renal insufficiency on admission - stable and has not improved. IVFs was not running last night unsure why. Dr. Solares d/w patient's nurse in regards to this. -He has good urine output. Continue to monitor urine output and creatinine. -history of prostate cancer- f/u as outpatient -DVT prophylaxis Discharge Planning Patient scheduled for PCI today. Most likely can be discharged tomorrow. Barbara Ortiz MD Aug 10, 2016 08:43
[2016-08-10] MEDS: SODIUM CHLORIDE 0.9% FLUSH 10 ML FLUSH IV FLUSH SCH ×2 (09:00→21:00)
[2016-08-10] MEDS: ATORVASTATIN 40 MG TAB PO SCH (09:31)
[2016-08-10] MEDS: ASPIRIN EC 81 MG TABEC PO SCH (09:32)
[2016-08-10] MEDS: FERROUS SULFATE 325 MG (65 MG ELEMENTAL IRON) TAB PO SCH (09:32)
[2016-08-10] MEDS: CLOPIDOGREL 75 MG TAB PO SCH (09:32)
[2016-08-10] MEDS: METOPROLOL TARTRATE 25 MG TAB PO SCH ×2 (09:32→21:17)
[2016-08-10] MEDS ORDERED: HEPARIN-NS/PF INJ 500 ML ONE ×2 (10:51→12:18)
[2016-08-10] MEDS ORDERED: HEPARIN SODIUM - IV 10,000 UNITS/10 ML VIAL ONE (10:54)
[2016-08-10] MEDS ORDERED: MIDAZOLAM HCL 2 MG/2 ML VIAL ONE (10:54)
[2016-08-10] MEDS ORDERED: DOPamine INJ PREMIX 500 ML ONE (11:45)
[2016-08-10] MEDS ORDERED: LIDOCAINE 2% JELLY 30 ML TUBE TOP PRN (13:15)
[2016-08-10] MEDS ORDERED: MORPHINE SULFATE 4 MG/ML INJ IV PUSH PRN (13:15)
[2016-08-10] MEDS ORDERED: ATROPINE SULFATE 1 MG/ML VIAL IV PRN (13:15)
[2016-08-10] MEDS ORDERED: LIDOCAINE HCL 1% 50 ML VIAL INFIL PRN (13:15)
[2016-08-10] MEDS ORDERED: MISC INFORMATION XX ONE (13:15)
[2016-08-10] MEDS ORDERED: LORazepam 2 MG/ML VIAL IV PRN (13:15)
[2016-08-10] MEDS ORDERED: SODIUM CHLOR 0.9% 250 ML INJ 250 ML IV PRN (13:15)
[2016-08-10] MEDS ORDERED: BACITRACIN OINT 0.9 GM PKT TOP ONE (13:15)
--- NOTE | 2016-08-10 13:39 | CATHPROC ---
Datto HIS Report Study Information Study Number Scheduled Start Study Start [id number] 08/10/2016 Aug 10 2016 10:19AM Referring Institution Admit Source Facility Department 1 Other [facility] - Television Announcer Physician and Clinical Staff Initial Rolando Miranda Box Toe Cutter Sam Peter,ADRIEL Recorder Mac Rodas RCIS(BS) Scrub Lima Javier,RT(R) Procedures Performed Procedure Location (Site) Vessel Name Coronary Angiograms LCA Left Coronary Drug Eluting Inflatio LAD Mid Left Coronary Drug Eluting Inflatio LEFT MAIN ARTERY-(11 Left Coronary IVUS LEFT MAIN ARTERY-(11 Left Coronary L Heart Cath Pacemaker Temp Fem Vein (right) Femoral Vein PTCA LAD Mid Left Coronary Wire insertion Fem Art (right) Femoral Art Wire insertion Radial (right) Radial Art. Equipment Time Cavalry Scout Description Size Mfg Part Number Used/Scraped PERCLOSE, PRO GLIDE CLOSER 11:39 [employer] FR 6 [id number] *[id number] Used DEVICE 12:01 ABIOMED PUMPSET, IMPELLA 2.5 2.5 [id number] Used [id number] 11:41 HARRISON BARRERA PACING CATHETER J CURVE FR 5 Used *[id number] TRANSDUCER, TRUWAVE [id number] 10:38 HARRISON BARRERA * Used W/STOCKCOCK *[id number] CARDIOVASCULAR CATHETER, CORONARY CLASSIC [id number] 12:25 Used SYSTEMS INC. 1.25MM *[id number] CARDIOVASCULAR WIRE, VIPER ADVANCE [id number] 12:20 Used SYSTEMS INC. CORONARY FLP *[id number] *[id number] [phone] *[id number] [phone] *[id number] WIRE, AMPLATZ SUPER STIFF 11:58 Datto 3MMJ 49574 *[id number] Used 3MMJ [id number] 10:38 [employer]trum [employer] PACK, CCL CUSTOM * Used *[id number] 10:38 [employer] SUPPORT, ARTERIAL ADULT 60547 Used [id number] 10:38 Obviousidea PACER PEN, SKIN DUAL W/ RULER * Used *[id number] BALLOON, 1.25 X 6MM SPRINTER [id number] 11:13 MEDTRONIC 6MM Used LEGEND OTW *[id number] 12:35 MEDTRONIC BALLOON, 3.0 X 20MM EUPHORA 20MM Used *[id number] [id number] 12:36 MEDTRONIC BALLOON, 3.0 X 20MM EUPHORA 20MM Used *[id number] STENT, 3.0 22 RESOLUTE [id number] 12:44 MEDTRONIC 3.0 22 Used INTEGRITY RX *[id number] STENT, 4.0 12 RESOLUTE [id number] 12:52 MEDTRONIC 4.0 12 Used INTEGRITY RX *[id number] [id number] 12:38 TrendBent 30 GERMAINE INDEFLATOR Used *[id number] SHEATH, FR6 RADIAL PRELUDE 10:38 TrendBent FR 6 [id number] Used EASE 11CM [id number] 10:38 TrendBent WIRE, EXCHANGE 260CM 3MMJ 260CM Used *[id number] 10:38 NYCOMED OMNIPAQUE, 350 MG, 150ML 150ML [id number] Used [id number] 10:38 [facility] BLANKET,WARM AIR CCL * Used *[id number] 11:35 [employer] MEDICAL SHEATH, FR7 TERUMO (10CM) FR 7 [id number] Used 11:56 TERUMO MEDICAL SHEATH, FR8 TERUMO (10CM) FR 8 [id number] Used WIRE, RUNTHROUGH NS FLOPPY [id number] 11:12 TERUMO MEDICAL 300CM Used .014 300CM *[id number] CATHETER, [facility] [facility] [place] [id number] 11:24 VOLCANO Used IMAGING *[id number] CATHETER, [place] [facility] [place] [id number] 11:30 VOLCANO Used IMAGING *[id number] Equipment Model, Serial, Lot Number and Expiration Data Description Model Number Serial Number Lot Number Expiration Da te BALLOON, 1.25 X 6MM SPRINTER [id number] 04-13-2019 LEGEND OTW CATHETER, [place] [facility] [place] [id number] 08-05-2018 IMAGING CATHETER, [place] [facility] [place] [id number] 08-05-2018 IMAGING PERCLOSE, PRO GLIDE CLOSER [id number] 01-05-2018 DEVICE STENT, 3.0 22 RESOLUTE [id number] 06-12-2018 INTEGRITY RX STENT, 4.0 12 RESOLUTE [id number] 09-02-2017 INTEGRITY RX History: Allergies Allergy Reaction dipyrone Hives History: Risk Factors Family History of Hypertension Dyslipidemia Previous [place] Previous Heart Failure Premature CAD No No No No No Prior Valve Prior PCI Prior CABG Prior CABGDate Surgery No No Yes 03/08/1997 Cerebrovascular Peripheral Artery Chronic Lung On Dialysis Diabetes Disease Disease Disease No No No No No History: Other Current Smoker Method Quit Packs a Day Years Used Pack Years No Cigarettes 45 Years Ago 1 15 15 Labs Hgb (g/dl) Hct (%) RBC (MIL/MM3) WBC (l/cumm) Platelets (thousands) 12.00-18.00 37.00-55.00 4.80-6.20 4.80-10.80 140.00-450.00 11.0 33.5 3.9 7.1 183 Glucose (mg/dl) BUN (mg/dl) Creatinine (mg/dl) BUN:Creatinine (1:x) 60.00-110.00 8.00-20.00 0.10-9.00 10.00-20.00 88 34 1.3 26.2 Na (meq/l) K (meq/l) Cl (meq/l) CO2 (mmol/L) Ca (mg/dl) 138.00-146.00 3.80-5.10 101.00-111.00 23.00-30.00 9.00-10.50 139 3.9 105 28.9 8.8 INR (PTT:PT) 0.50-2.00 1 Troponin I (ng/ml) CPK (u/l) CPK-MB (ng/ML) 0.40-2.30 37.00-289.00 0.00-7.00 1.2 96 Not Drawn Medication Medication Total Dose (Bolus/Oral) Medication Total Dosage/Unit 1% XYLOCAINE 25 mL FENTANYL 50 mcg HEPARIN 8000 units NTG (IC) 200 mcg VERSED 2 mg Medications (Bolus/Oral) Medication Time Given Dosage/Unit Administered By Reason VERSED 08/10/2016 11:05:33 AM 1 mg Sam Peter 1 mg VERSED given in lab by Sam Peter RN in Right Forearm via Peripheral IV. Ordered by Rolando Solares. FENTANYL 08/10/2016 11:05:56 AM 25 mcg Sam Peter Patient arrived on 25 mcg FENTANYL given by Sam Peter, ADRIEL in Right Forearm via Peripheral IV. Or dered by Rolando Solares. 1% XYLOCAINE 08/10/2016 11:10:27 AM 5 mL Rolando Solares 5 mL 1% XYLOCAINE given in lab by Rolando Solares in Right Radial via Subcutaneous. Ordered by Rolando Solares. NTG (IC) 08/10/2016 11:12:01 AM 200 mcg Rolando Solares 200 mcg NTG (IC) given in lab by Rolando Solares via Intra-arterial. Ordered by Rolando Solares. HEPARIN 08/10/2016 11:12:22 AM 5000 units Rolando Solares 5000 units HEPARIN given in lab by Rolando Solares in Right Antecubital via Peripheral IV. Ordered by Rolando Solares. VERSED 08/10/2016 11:37:00 AM 1 mg Sam Peter 1 mg VERSED given in lab by Sam Peter RN in Right Forearm via Peripheral IV. Ordered by Rolando Solares. FENTANYL 08/10/2016 11:37:00 AM 25 mcg Sam Peter 25 mcg FENTANYL given in lab by Sam Peter RN in Right Forearm via Peripheral IV. Ordered by Rolando Richardson. 1% XYLOCAINE 08/10/2016 11:37:49 AM 20 mL Rolando Solares 20 mL 1% XYLOCAINE given in lab by Rolando Solares in Right Groin via Subcutaneous. Ordered by Rolando Solares. HEPARIN 08/10/2016 11:53:00 AM 3000 units Rolando Solares 3000 units HEPARIN given in lab by Rolando Solares in Right Antecubital via Peripheral IV. Ordered by Rolando Solares. Medication (Drip) Medication Time Given Dosage/Unit Concentration/Unit Diluent (ml) Solution IV Solutions 08/10/2016 10:38:22 AM 0 mL (IV) 500 NaCl .9 Patient arrived on IV Solutions in Right Antecubital via Peripheral IV. Pump/Drip Flow = 20 ml/hr usi ng NaCl .9. Ordered by Rolando Solares. Initial Case Assessment Cardiovascular HR Rhythm NIBP Chest Pain 59 SINUS ARMANDO 157/83 0 Edema Present Skin color Skin None Normal Warm Dry Circulatory - Right Pulses Dorsalis Pedis Femoral Radial 3 3 3 Scale (0,1,2,3,4,d) Circulatory - Left Pulses Dorsalis Pedis Femoral Radial 3 3 Scale (0,1,2,3,4,d) Circulatory - Lower Extremities Color Lower Right Color Lower Left Normal Normal Neurological State Oriented to time-place- Alert Moves all extremities person Respiration - General Respiration Rate SpO2 (%) (B/min) 14 99 Final Case Assessment Cardiovascular HR Rhythm NIBP Chest Pain 59 SINUS ARMANDO 157/83 0 Edema Present Skin color Skin None Normal Warm Dry Circulatory - Right Pulses Dorsalis Pedis Femoral Radial 3 3 3 Scale (0,1,2,3,4,d) Circulatory - Left Pulses Dorsalis Pedis Femoral Radial 3 3 Scale (0,1,2,3,4,d) Circulatory - Lower Extremities Color Lower Right Color Lower Left Normal Normal Neurological State Oriented to time-place- Alert Moves all extremities person Respiration - General Respiration Rate SpO2 (%) (B/min) 14 99 Chronological Log Time Study Chronological Log 10:30:31 Patient arrived via Bed. 10:30:32 Patient Name, D.O.B, / Armband Verified By R.N. 10:30:35 Consent signed by the physician and the patient and verified by the Television Announcer staff. 10:30:37 Pre-op and post- op instructions given; patient acknowledges understanding of instructions. 10:30:42 Verbal Stimulation=2 Physical Stimulation=2 Airway=2 Respiration=2 TOTAL=8. (0=absent, 1=li mited, 2=present) Vitals capture started with the following parameters, Patient=Adult, Interval=15 min, Initial P ljlgptp=473 mmHg, 10:34:23 Deflation Rate=5 mmHg 10:37:49 Allens test performed on the right radial and ulnar artery. 10:37:51 Patient has been NPO for Less than 6Hrs. 10:37:52 Skin Breakdown- SKIN TEAR RT GROIN 10:37:53 Patient Warmer Placed on the Table. 10:38:19 Disposable Defibrillator Pads Placed On Patient. 10:38:22 A # 20 IV was noted in the Antecubital (right). Grade = 0 Patient arrived on IV Solutions in Right Antecubital via Peripheral IV. Pump/Drip Flow = 20 ml/ hr using NaCl .9. Ordered 10:38:22 by Rolando Solares. 10:38:24 History and physical on the chart or being dictated. Assessment: Initial Case, HR=59 BPM, Rhythm=SINUS ARMANDO, LPER=933/83 mmhg, Chest Pain=0, Edema= None, Color=Normal, Skin = Warm, Dry Right Pulses: Redd Ped=3, Femoral=3, Radial=3 Left Pulses: Redd Ped=3, Femoral=3 10:38:26 Lower Right Extremities: Color=Normal Lower Left Extremities: Color=Normal Neurological: State=Alert, Ox3, CEBALLOS Respiration: Resp=14 B/min, SpO2=99 % Vitals capture started with the following parameters, Patient=Adult, Interval=15 min, Initial P hslqjcp=045 mmHg, 10:38:32 Deflation Rate=5 mmHg 10:39:22 HR=63 bpm, RQCK=593/83 mmhg, OxB7=733.0 %, Resp=14 B/min, Pain=0, Everardo=10, Wren=2 10:44:11 HR=32 bpm, QUVU=110/82 mmhg, SpO2=98.0 %, Resp=16 B/min, Pain=0, Everardo=10, Wren=2 10:45:53 Right Radial and groin(s) prepped with 2% chlorhexidine, and with a 3 min. waiting time. 10:49:12 HR=29 bpm, RAQV=007/83 mmhg, OuR3=123.0 %, Resp=12 B/min, Pain=0, Everardo=10, Wren=2 10:53:46 Pressure channel 1 zeroed. 10:54:15 HR=39 bpm, MCGM=724/86 mmhg, NoY3=735.0 %, Resp=16 B/min, Pain=0, Everardo=10, Wren=2 10:56:08 MD paged 10:59:18 HR=23 bpm, STBZ=286/86 mmhg, CbR6=380.0 %, Resp=13 B/min, Pain=0, Everardo=10, Wren=2 11:02:14 Reference ECG taken 11:03:29 MD arrived. 11:04:17 HR=0 bpm, SDOG=529/77 mmhg, TsI9=283.0 %, Resp=16 B/min, Wren=2 11:05:33 1 mg VERSED given in lab by Sam Peter, ADRIEL in Right Forearm via Peripheral IV. Ordered by Rolando Solares. Patient arrived on 25 mcg FENTANYL given by Sam Peter, ADRIEL in Right Forearm via Peripheral IV. Ordered by Beck, 11:05:56 Rolando. Time Out. Correct patient, correct procedure,correct physician, ,power injector loaded with con trast with surgical team 11:08:23 present. Time Out Concurred by MD, individual staff and NEUROPSYCHOLOGIST in procedure. Not loaded at this t torsten. 11:09:04 Presedation re-assessment performed by Television Announcer RN. 11:09:07 Case Start 11:09:13 Verbal Stimulation=2 Physical Stimulation=2 Airway=2 Respiration=2 TOTAL=8. (0=absent, 1=li mited, 2=present) 11:09:18 HR=5 bpm, HAJC=778/75 mmhg, NnY1=750.0 %, Resp=7 B/min, Wren=2 11:10:27 5 mL 1% XYLOCAINE given in lab by Rolando Solares in Right Radial via Subcutaneous. Ordered by Rolando Solares. 11:10:38 Access site was Radial Artery. A SHEATH, FR6 RADIAL PRELUDE EASE 11CM FR 6 was advanced into the Radial (right) using the Perc utaneous 11:10:46 technique. 11:12:01 200 mcg NTG (IC) given in lab by Rolando Solares via Intra-arterial. Ordered by Ellyn Solares en. 11:12:22 5000 units HEPARIN given in lab by Rolando Solares in Right Antecubital via Peripheral IV. O rdered by Rolando Solares. 11:13:07 A AL 3 GUIDE CATHETER FR 6 was advanced over a wire. OMNIPAQUE, 350 MG, 150ML 150ML was use d for injections. After removing the current catheter a AL 3 GUIDE CATHETER FR 6 was advanced over a WIRE, EXCHAN GE 260CM 11:14:07 3MMJ 260CM. 11:14:19 HR=0 bpm, CYKI=602/67 mmhg, SpO2=99.0 %, Resp=10 B/min, Wren=2 Recorded Pressure: Ao, HR=55, Condition=Condition 1 11:16:03 (Aorta) Ao 139/44/79 11:16:21 The LCA was injected and visualized at various angles. OMNIPAQUE, 350 MG, 150ML 150ML used . 11:19:16 HR=0 bpm, MPVR=859/57 mmhg, CpU5=379.0 %, Resp=11 B/min, Wren=2 11:22:20 Activated Clotting Time Drawn 11:24:15 HR=2 bpm, JEJL=489/64 mmhg, HuZ2=892.0 %, Resp=9 B/min, Wren=2 11:26:53 A WIRE, RUNTHROUGH NS FLOPPY .014 300CM 300CM was inserted via Radial (right). 11:29:16 HR=0 bpm, NWZM=244/68 mmhg, IgF2=487.0 %, Resp=10 B/min, Pain=0, Everardo=10, Wren=2 11:31:17 An CATHETER, [facility] [place] IMAGING was advanced through the lesion. Images saved o VibeWrite IVUS hard drive 11:32:01 IVUS in progress using CATHETER, [employer] [place] IMAGING 11:33:09 IVUS catheter removed 11:35:05 HR=6 bpm, STTP=237/61 mmhg, IgT7=660.0 %, Resp=10 B/min, Pain=0, Everardo=10, Wren=2 11:37:00 1 mg VERSED given in lab by Sam Peter RN in Right Forearm via Peripheral IV. Ordered by Rolando Solares. 11:37:00 25 mcg FENTANYL given in lab by Sam Peter, ADRIEL in Right Forearm via Peripheral IV. Orde red by Rolando Solares. 11:37:49 20 mL 1% XYLOCAINE given in lab by Rolando Solares in Right Groin via Subcutaneous. Ordered by Rolando Solares. 11:37:55 Access site was Right Femoral Artery. A SHEATH, FR6 RADIAL PRELUDE EASE 11CM FR 6 was advanced into the Fem Art (right) using the Per cutaneous 11:38:00 technique. 11:39:19 HR=0 bpm, YINL=509/59 mmhg, DoN1=659.0 %, Resp=10 B/min, Pain=0, Everardo=10, Wren=2 11:40:10 Access site was Right Femoral Vein. 11:40:17 A SHEATH, FR7 TERUMO (10CM) FR 7 was advanced into the Fem Vein (right) using the Percutane ous technique. A PACING CATHETER J CURVE FR 5 was advanced to the right ventricle. Rate = 60, Output = ~OUTPUT ~, MA = 11:41:49 ~MA~. 11:44:18 NIBP=97/60 mmhg, SpO2=99.0 %, Resp=0 B/min, Pain=0, Everardo=10, Wren=2 11:45:47 A WIRE, EXCHANGE 260CM 3MMJ 260CM was inserted via Fem Art (right). 11:46:38 PERCLOSE, PRO GLIDE CLOSER DEVICE FR 6 placement in the Fem Art (right) 11:47:31 ACT (Normal Range 90-180) = 194 11:49:11 HR=0 bpm, WTDN=741/53 mmhg, BsY6=782.0 %, Resp=9 B/min, Pain=0, Everardo=10, Wren=2 11:53:00 3000 units HEPARIN given in lab by Rolando Solares in Right Antecubital via Peripheral IV. O rdered by Rolando Solares. 11:54:32 A WIRE, EXCHANGE 260CM 3MMJ 260CM was inserted via Fem Art (right). 11:54:59 HR=41 bpm, JZEU=227/57 mmhg, VgZ5=810.0 %, Resp=11 B/min, Pain=0, Everardo=10, Wren=2 A SHEATH, FR8 TERUMO (10CM) FR 8 was exchanged in the Fem Art (right). This was necessary in or rosamaria to 11:57:00 accomodate a larger catheter. A AL 1 INFINITI CATHETER FR 6 was advanced over a wire. OMNIPAQUE, 350 MG, 150ML 150ML was used for 11:57:18 injections. 11:59:15 HR=58 bpm, BWVM=007/68 mmhg, SpO2=99.0 %, Resp=10 B/min, Pain=0, Everardo=10, Wren=2 11:59:59 A WIRE, AMPLATZ SUPER STIFF 3MMJ 3MMJ was inserted via Fem Art (right). 12:00:07 Catheter was removed 12:01:44 8 UZBEK SHEATH EXCHANGED FOR IMPELLLA SHEATH 12:04:12 HR=59 bpm, SKXY=637/70 mmhg, Resp=12 B/min, Pain=0, Everardo=10, Wren=2 12:04:18 Activated Clotting Time Drawn 12:05:37 Reference ECG taken 12:08:54 ACT (Normal Range 90-180) = 261 A AL 1 INFINITI CATHETER FR 6 was advanced over a wire. OMNIPAQUE, 350 MG, 150ML 150ML was used for 12:09:41 injections. 12:09:52 HR=63 bpm, TPKX=641/64 mmhg, OkV9=879.0 %, Resp=10 B/min, Pain=0, Everardo=10, Wren=2 12:12:09 IMPELLA WIRE INSERTED 12:12:27 Catheter was removed 12:14:11 IMPELLA INSERTED 12:14:14 HR=44 bpm, MMTE=014/71 mmhg, UiD0=167.0 %, Resp=11 B/min, Pain=0, Everardo=10, Wren=2 12:14:25 IMPELLA WIRE REMOVED 12:19:13 HR=57 bpm, QRPM=891/77 mmhg, UsH4=104.0 %, Resp=10 B/min, Pain=0, Everardo=10, Wren=2 A BALLOON, 1.25 X 6MM SPRINTER LEGEND OTW 6MM was inserted over WIRE, RUNTHROUGH NS FLOPPY .014 12:20:59 300CM 300CM via the Radial (right). 12:21:25 RUNTHROUGH REMOVED Wire removed 12:22:25 A WIRE, VIPER ADVANCE CORONARY was inserted via Radial (right). 12:22:48 Balloon Removed. 12:24:14 HR=43 bpm, QLPW=097/76 mmhg, Resp=11 B/min, Pain=0, Everardo=10, Wren=2 12:29:17 HR=59 bpm, ALMR=622/61 mmhg, WeS1=912.0 %, Resp=11 B/min, Pain=0, Everardo=10, Wren=2 12:29:26 CSI VIPER DIAMONDBACK 360 IN PROGRESS 12:31:25 NIBP STAT measurement started. 12:31:59 HR=44 bpm, UZJR=301/63 mmhg, NhX0=873.0 %, Resp=17 B/min, Pain=0, Everardo=10, Wren=2 12:34:00 CSI VIPER DIAMONDBACK 360 REMOVED 12:34:20 HR=58 bpm, DJAH=045/71 mmhg, YuY0=947.0 %, Resp=42 B/min, Pain=0, Everardo=10, Wren=2 12:35:00 The previous wire was exchanged for a WIRE, RUNTHROUGH NS FLOPPY .014 300CM 300CM. 12:36:35 Activated Clotting Time Drawn A BALLOON, 3.0 X 20MM EUPHORA 20MM over a WIRE, RUNTHROUGH NS FLOPPY .014 300CM 300CM in the LA D Mid 12:38:05 was inflated using a 30 GERMAINE INDEFLATOR at 14 germaine for 20 sec. A BALLOON, 3.0 X 20MM EUPHORA 20MM over a WIRE, RUNTHROUGH NS FLOPPY .014 300CM 300CM in the LA D Mid 12:39:15 was inflated using a 30 GERMAINE INDEFLATOR at 14 germaine for 8 sec. 12:39:19 HR=36 bpm, YWRG=487/68 mmhg, Resp=6 B/min, Pain=0, Everardo=10, Wren=2 A BALLOON, 3.0 X 20MM EUPHORA 20MM over a WIRE, RUNTHROUGH NS FLOPPY .014 300CM 300CM in the LA D Mid 12:40:00 was inflated using a 30 GERMAINE INDEFLATOR at 14 germaine for 15 sec. 12:41:00 Balloon Removed. 12:41:04 ACT (Normal Range 90-180) = 252 A STENT, 3.0 22 RESOLUTE INTEGRITY RX 3.0 22 was advanced through a AL 3 GUIDE CATHETER FR 6 ov er a WIRE, 12:43:00 RUNTHROUGH NS FLOPPY .014 300CM 300CM. A STENT, 3.0 22 RESOLUTE INTEGRITY RX 3.0 22 was deployed using a 30 GERMAINE INDEFLATOR at 16 atmos pheres for 12:43:13 12 seconds in the LAD Mid. 12:44:20 HR=58 bpm, SQAB=155/82 mmhg, EiY6=081.0 %, Resp=14 B/min, Pain=0, Everardo=10, Wren=2 12:46:46 Delivery device removed A STENT, 4.0 12 RESOLUTE INTEGRITY RX 4.0 12 was advanced through a AL 3 GUIDE CATHETER FR 6 ov er a WIRE, 12:47:00 RUNTHROUGH NS FLOPPY .014 300CM 300CM. A STENT, 4.0 12 RESOLUTE INTEGRITY RX 4.0 12 was deployed using a 30 GERMAINE INDEFLATOR at 10 atmos pheres for 12:47:30 15 seconds in the LEFT MAIN ARTERY-(11. 12:49:21 HR=57 bpm, VHQO=205/78 mmhg, PlX6=887.0 %, Resp=11 B/min, Pain=0, Everardo=10, Wren=2 12:49:55 Re-inflated the stent balloon in the LEFT MAIN ARTERY-(11 to 14 GERMAINE for 10 seconds. 12:52:02 Delivery device removed 12:53:26 Wire removed 12:53:59 TEMP PACER REMOVED 12:54:22 HR=0 bpm, KRJQ=080/72 mmhg, RvI7=418.0 %, Resp=22 B/min, Pain=0, Everardo=10, Wren=2 12:54:30 IMPELLA REMOVED 12:59:28 HR=0 bpm, ZBPQ=976/70 mmhg, RtS2=458.0 %, Resp=13 B/min, Pain=0, Everardo=10, Wren=2 13:04:27 HR=0 bpm, NIBP=99/53 mmhg, SpO2=98.0 %, Resp=13 B/min, Pain=0, Everardo=10, Wren=2 13:04:41 Case End 13:05:00 VENOUS Sheath removed; pressure applied to access site. Assessment: Final Case, HR=59 BPM, Rhythm=SINUS ARMANDO, VDZO=102/83 mmhg, Chest Pain=0, Edema=N one, Color=Normal, Skin = Warm, Dry Right Pulses: Redd Ped=3, Femoral=3, Radial=3 Left Pulses: Redd Ped=3, Femoral=3 13:05:00 Lower Right Extremities: Color=Normal Lower Left Extremities: Color=Normal Neurological: State=Alert, Ox3, CEBALLOS Respiration: Resp=14 B/min, SpO2=99 % 13:09:58 HR=0 bpm, JQIP=671/63 mmhg, FoE4=709.0 %, Resp=14 B/min, Pain=0, Everardo=10, Wren=2 13:14:25 HR=0 bpm, OACM=512/74 mmhg, GlR5=979.0 %, Resp=12 B/min, Pain=0, Everardo=10, Wren=2 13:19:28 UEBX=238/75 mmhg, Pain=0, Everardo=10, Wren=2 13:24:12 Sterile dressing applied to site 13:24:13 No case complications noted. 13:24:14 Cine recording checked. 13:24:17 Bedside Report will be given. 13:24:19 Implantable Device card placed in patient's chart. 13:24:26 Contrast Scanned 13:24:29 A Left Heart Cath was performed. 13:24:30 Patient moved to stretcher End Study - Contrast Media Used In Study Contrast Total Opened (mL) Total Used (mL) Total Wasted (mL) Omnipaque 120 120 0 End Study - Maximum Contrast Load Max Contrast Load (mL) 625.0 End Study - Radiation Exposure Fluoro Time (minutes) 17.8 End Study - Patient Disposition Complications Transferred To Interventional Outcome No Critical Care Bed successful
[2016-08-10] MEDS ORDERED: IOHEXOL 350 MG/ML 50 ML BTL (for Cath Lab) OTHER ONE (14:57)
[2016-08-10] MEDS ORDERED: IOHEXOL 350 MG/ML 100 ML BTL (for Cath Lab) OTHER ONE (14:57)
--- NOTE | 2016-08-10 15:41 | MA ---
cc: KIMBER HARPER DATE 08/10/2016 HOSPITAL COURSE This gentleman had a diagnostic angiogram with multivessel coronary disease but turned down repeat coronary bypass surgery, now here for high risk PCI. PROCEDURE PERFORMED 1. Fluoroscopy with interpretation. 2. Coronary angiography. 3. Intravascular ultrasound of the left main and left anterior descending coronary arteries. 4. Temporary transvenous pacemaker placement. 5. Insertion of external heart assist system into heart, percutaneous approach. 6. Assistance with cardiac output using Impella pump, continuous. 7. Insertion of ventricular assist device, percutaneous including radiologic supervision interpretation, arterial only. 8. Orbital rotation atherectomy of the distal left main and mid left anterior descending coronary arteries. 9. Percutaneous endovascular stenting with drug-eluting stents of the distal left main and mid left anterior descending coronary arteries. METHOD The risks, benefits and alternatives were discussed with the patient. The patient understood and consented to the procedure. The patient was brought to the catheterization lab and placed on the catheterization table. The right wrist, right groin were prepped and draped in sterile fashion. Right wrist was anesthetized with 2% lidocaine. 6-St Helenian 7 cm sheath was placed without difficulty. 200 micrograms intra-arterial nitroglycerin in addition to 5000 units of intravenous heparin was administered. DIAGNOSTIC ANGIOGRAPHY Please see prior diagnostic angiogram. Briefly: 1. Left main coronary was now better visualized with a selective guide catheter and did appear to have more significant stenosis distally with heavy calcification and "hazy" appearance than had previously been dictated in prior recent diagnostic angiography. Severity of stenosis looked between 50 and 80% but varied angiographically depending up orthogonal view. 2. Left anterior descending coronary is a 90% mid stenosis. 3. Left circumflex is occluded after a high first obtuse marginal branch. The ostium of the circumflex has a 60% stenosis. 4. The right coronary proximally is 100% occluded. Intravascular ultrasound: Given the suspected distal left main coronary disease, we elected to proceed with intravascular ultrasound to better visualize and determine if it did in fact need intervention. Left main was selectively engaged 6-St Helenian AL3 guide catheter, 0.014" 300 cm Terumo Run-through wire was navigated down in the distal left anterior descending coronary artery. An [employer] intravascular ultrasound was then advanced into the left main. The distal left main had severe calcium and stenosis present. Calculated severity of stenosis was 75%, a cross sectional area was measured at 3.5 mm2 (less than 6 mm2 is considered physiologically significant). The proximal left anterior descending coronary also had moderate calcific disease present. Temporary transvenous pacemaker placement: A 6-St Helenian sheath was placed in the right femoral vein, 5-St Helenian balloon-tipped temporary transvenous pacemaker was advanced under fluoroscopic guidance to the right ventricular apex. Appropriate capture was confirmed and backup rate set at 60 beats per minute, which was utilized during the case. Left ventricular assist device placement Impella; Given the need for intervention a distal left main with known three-vessel coronary artery disease in the setting of moderate cardiomyopathy, he is extremely high risk for a valdo-procedural event and even during procedure. Therefore, we elected to proceed with a left ventricular assist device for protection. Groin was prepped and a 6-St Helenian sheath was placed in the right common femoral artery under fluoroscopic guidance. Two Perclose devices were prepped and deployed in anticipation of closing at the end of the case. A 2.5 liters Abiomed Impella left ventricular assist device was then advanced up-and-over the wire into the left ventricle. The device was activated with good output. Device remained in place throughout the procedure. Device was removed at the completion of the procedure without difficulty. Percutaneous intervention A 1.25 x 6 mm over the wire balloon was then advanced over the Terumo wire down into the distal LAD, Terumo wire removed and a 0.014 inch 335 cm Viper wire was navigated down the distal left anterior descending coronary and the over the wire balloon removed. A CSI atherectomy coronary catheter was then prepped. Orbital rotational atherectomy was performed in the distal left main and proximal mid left anterior descending coronary artery on four sequential passes. Throughout the procedure the patient's intrinsic cardiac output dropped with appropriately maintenance of perfusion with utilization of the Impella backup. A 3.0 x 20 mm Medtronic balloon was then deployed in the mid segment of the left anterior descending coronary proximal, the distal left main coronary artery. Repeat angiography still showed severe residual stenosis 3.0 x 22 mm Medtronic Resolute drug-eluting stent was deployed in the mid left anterior descending coronary artery. A 4.0 x 12 mm RX Resolute drug-eluting stent was then deployed in the distal left main extending into the proximal left anterior descending coronary without difficulty. Repeat angiography showed no residual stenosis, DANNI III flow. Guide catheter wire removed. Heparin was administered throughout the entire procedure to maintain appropriate coagulation. Impella device was then removed. Temporary transvenous pacemaker was removed. Two Perclose devices were then sutured in place with good hemostasis. Venous sheath was sewn in place. The right Hemaband was applied to the radial sheath removed. CONCLUSION 1. Severe three-vessel coronary artery disease and distal left main coronary artery. 2. Successful placement and utilization of left ventricular assist device, Impella 2.5 liter/min device. 3. Successful utilization of temporary transvenous pacemaker. 4. Successful orbital rotation atherectomy, balloon angioplasty, endovascular stenting with drug-eluting stents to the distal left main and mid left anterior descending coronary artery. PLAN The patient will be monitored closely for any post procedural complications. Continued on antiplatelet therapy. Will flush the kidneys aggressively. He did get about 100 cc to contrast. We will follow creatinine. Anticipate discharge tomorrow. MD YSABEL Quick/GUSTAVO /1:17 PM /3:06 PM MTDMarian
[2016-08-10] MEDS ORDERED: ATROPINE SULFATE 1 MG/10 ML SYRINGE ONE (16:05)
[2016-08-10] MEDS: TAMSULOSIN HCL 0.4 MG CAP PO SCH (21:17)
[2016-08-11] VITALS: PULSE 63
[2016-08-11] MEDS: SODIUM CHLOR 0.9% 1000 ML INJ 1,000 ML IV SCH ×3 (01:51→11:51)
[2016-08-11 04:00] VITALS: BP 157/77; PULSE 61; RESP 20; TEMP 98.5; O2SAT 95
[2016-08-11 04:15] LABS: AUTOMATED NEUTROPHIL # 4.7 TH/MM3 (1.8-7.7); BASOPHIL % 0.6 % (0.0-2.0); EOSINOPHIL # 0.2 TH/MM3 (0-0.4); EOSINOPHIL % 2.9 % (0.0-4.0); HEMATOCRIT 29.8 % (39.0-51.0); HEMO FLAGS DIFF FINAL; LYMPH % 17.6 % (9.0-44.0); LYMPHOCYTE # 1.2 TH/MM3 (1.0-4.8); MEAN CELL VOLUME 84.3 FL (80.0-100.0); MEAN CORPUSCULAR HEMOGLOBIN 28.1 PG (27.0-34.0); MEAN CORPUSCULAR HGB CONC 33.3 % (32.0-36.0); NEUT % 69.9 % (16.0-70.0); PLATELET COUNT 168 TH/MM3 (150-450); RED BLOOD COUNT 3.53 MIL/MM3 (4.50-5.90); RED CELL DISTRIBUTION WIDTH 16.9 % (11.6-17.2); WHITE BLOOD COUNT 6.7 TH/MM3 (4.0-11.0)
[2016-08-11 05:02] LABS: BICARBONATE 24.2 MEQ/L (21.0-32.0); POTASSIUM 3.7 MEQ/L (3.5-5.1)
[2016-08-11 05:05] LABS: HDL CHOLESTEROL 26.8 MG/DL (40.0-60.0)
[2016-08-11] MEDS: ISOSORBIDE MONONITRATE 60 MG TAB PO SCH (06:39)
[2016-08-11 07:00] VITALS: BP 128/72; PULSE 68; RESP 18; TEMP 98.3; O2SAT 95
[2016-08-11] MEDS ORDERED: TICAGRELOR 90 MG TAB PO ONE (07:45)
--- NOTE | 2016-08-11 07:56 | PD.CARD.PN ---
Subjective Subjective Remarks denies chest pain (Rakan Thompson) Objective Vital Signs / I&O Vital Signs Date Time Temp Pulse Resp B/P Pulse Ox O2 Delivery O2 Flow Rate FiO2 08/11/16 04:00 98.5 61 20 157/77 95 08/11/16 04:00 61 08/11/16 00:00 63 08/10/16 23:32 98.5 60 18 150/84 93 08/10/16 23:00 67 08/10/16 20:00 98.9 69 18 151/80 94 08/10/16 20:00 56 08/10/16 16:44 52 08/10/16 16:41 98.2 52 14 135/63 96 08/10/16 14:49 98.3 58 16 140/67 95 08/10/16 14:35 54 08/10/16 14:21 98.1 57 14 124/64 94 08/10/16 14:04 52 126/60 08/10/16 13:47 98.1 52 16 137/64 94 08/10/16 10:00 60 08/10/16 09:00 62 08/10/16 08:00 62 08/10/16 08:00 98.1 59 16 133/77 97 I/O 08/10/16 08/10/16 08/10/16 08/11/16 08/11/16 08/11/16 07:00 15:00 23:00 07:00 15:00 23:00 Intake Total 830 ml 401 ml 1260 ml Output Total 400 ml 100 ml Balance 830 ml 1 ml 1160 ml Intake Oral 480 ml 120 ml 480 ml IV Total 350 ml 281 ml 780 ml Output Urine Total 400 ml 100 ml # Voids 3 2 4 # Bowel Movements 0 0 1 Physical Exam GENERAL: Well-nourished, well-developed patient in no apparent distress. NECK: No JVD. No carotid bruit. CARDIOVASCULAR: Regular rate and rhythm. S1/S2 no murmur, rub, or gallop. RESPIRATORY: No accessory muscle use. Clear to auscultation. Breath sounds equal bilaterally. GASTROINTESTINAL: Abdomen soft, non-tender, nondistended. MUSCULOSKELETAL: Extremities without clubbing, cyanosis, or edema. Laboratory Laboratory Tests Test 08/11/16 04:06 White Blood Count 6.7 TH/MM3 Red Blood Count 3.53 MIL/MM3 Hemoglobin 9.9 GM/DL Hematocrit 29.8 % Mean Corpuscular Volume 84.3 FL Mean Corpuscular Hemoglobin 28.1 PG Mean Corpuscular Hemoglobin 33.3 % Concent Red Cell Distribution Width 16.9 % Platelet Count 168 TH/MM3 Mean Platelet Volume 8.6 FL Neutrophils (%) (Auto) 69.9 % Lymphocytes (%) (Auto) 17.6 % Monocytes (%) (Auto) 9.0 % Eosinophils (%) (Auto) 2.9 % Basophils (%) (Auto) 0.6 % Neutrophils # (Auto) 4.7 TH/MM3 Lymphocytes # (Auto) 1.2 TH/MM3 Monocytes # (Auto) 0.6 TH/MM3 Eosinophils # (Auto) 0.2 TH/MM3 Basophils # (Auto) 0.0 TH/MM3 CBC Comment DIFF FINAL Differential Comment Sodium Level 141 MEQ/L Potassium Level 3.7 MEQ/L Chloride Level 108 MEQ/L Carbon Dioxide Level 24.2 MEQ/L Anion Gap 9 MEQ/L Blood Urea Nitrogen 24 MG/DL Creatinine 1.24 MG/DL Estimat Glomerular Filtration 55 ML/MIN Rate Random Glucose 87 MG/DL Calcium Level 8.3 MG/DL Total Creatine Kinase 97 U/L Triglycerides Level 121 MG/DL Cholesterol Level 139 MG/DL LDL Cholesterol 88 MG/DL HDL Cholesterol 26.8 MG/DL Cholesterol/HDL Ratio 5.18 RATIO (Rakan Thompson) Assessment and Plan Problem List: (1) Chest pain (2) Elevated troponin I level (3) NSTEMI (non-ST elevated myocardial infarction) (4) CAD (coronary artery disease) Assessment and Plan S/P successful high risk PCI LM and mid LAD - P2Y12 - 278 stop Plavix start Brilinta 160 mg loading dose today then 90 mg BID starting tonight. Will ask Case Mgt. to give him a coupon card for Brilinta HTN - stop metoprolol add amlodipine 5 mg daily (Rakan Thompson) Assessment and Plan agree with above. inappropriate platelet inhibition with plavix. He is a nonresponder. Will need Brillinta for high risk of stent thrombosis x 1 year. Brillinta needs no renal dosing. cont asa and statin and nitrate bradycardia - DC BB hypertension - Cr was previously elevated. Will add low dose ACEi. monitor Cr in outpatient setting FU in OPD repeat echo in OP. hope for improvement in cardiomyopathy groin c/d/i Ok for DC today (Rolando Solares MD) Rakan Thompson Aug 11, 2016 07:55 Rolando Solares MD Aug 11, 2016 09:32
[2016-08-11 08:00] VITALS: PULSE 82
[2016-08-11] MEDS: ASPIRIN EC 81 MG TABEC PO SCH (08:08)
[2016-08-11] MEDS: FERROUS SULFATE 325 MG (65 MG ELEMENTAL IRON) TAB PO SCH (08:08)
[2016-08-11] MEDS: ATORVASTATIN 40 MG TAB PO SCH (08:08)
[2016-08-11] MEDS: SODIUM CHLORIDE 0.9% FLUSH 10 ML FLUSH IV FLUSH SCH (08:09)
[2016-08-11] MEDS: CLOPIDOGREL 75 MG TAB PO SCH (08:18)
[2016-08-11] MEDS ORDERED: amLODIPine BESYLATE 5 MG TAB PO SCH (09:00)
[2016-08-11 11:00] VITALS: BP 143/70; PULSE 64; RESP 18; TEMP 98; O2SAT 95
[2016-08-11 12:00] VITALS: PULSE 64
[2016-08-11] MEDS ORDERED: ATOR40TA16 PO (12:23)
[2016-08-11] MEDS ORDERED: FERR325T20 PO (12:23)
[2016-08-11] MEDS ORDERED: LISI10TA3 PO (12:23)
[2016-08-11] MEDS ORDERED: ASPI-99 PO (12:23)
[2016-08-11] MEDS ORDERED: ISOS60TA PO (12:23)
[2016-08-11] MEDS ORDERED: BRIL90TA PO (12:23)
--- NOTE | 2016-08-11 12:23 | HHI.DCPOC ---
Discharge Care Plan Diagnosis: (1) CAD (coronary artery disease) (2) NSTEMI (non-ST elevated myocardial infarction) (3) Renal insufficiency Goals to Promote Your Health * To prevent worsening of your condition and complications * To maintain your health at the optimal level Directions to Meet Your Goals Take your medications as prescribed Follow your dietary instruction Follow activity as directed Keep your appointments as scheduled Take your immunizations and boosters as scheduled If your symptoms worsen call your PCP, if no PCP go to Urgent Care Center or Emergency Room Smoking is Dangerous to Your Health. Avoid second hand smoke Call the 24-hour hour crisis hotline for domestic abuse at Brabara Ortiz MD Aug 11, 2016 12:23
--- NOTE | 2016-08-11 12:23 | HHI.DS ---
Discharge Summary Admission Date Aug 08, 2016 at 10:24 Discharge Date: Aug 11, 2016 Admitting Diagnosis chest pain, elevated troponin I (1) NSTEMI (non-ST elevated myocardial infarction) ICD Code: I21.4 Diagnosis: Principal (2) Renal insufficiency ICD Code: N28.9 Diagnosis: Principal (3) CAD (coronary artery disease) ICD Code: I25.10 Diagnosis: Secondary Procedures See hospital course Brief History - From Admission patient is a 86 y/o male with history of CAD- s/p CABG presented to ER with chest pain. his son who's proving the information says that he's had this on and off chest pain for the past six months. but the pain started to get worse last night. pain was described as ' pressure on the chest' which was associated with nausea. he denies any sob or diaphoresis. the patient is pain free at the time of my evaluation. CBC/BMP: 08/11/16 0406 08/11/16 0406 Significant Findings Laboratory Tests Test 08/09/16 08/09/16 08/10/16 08/11/16 04:50 12:11 05:35 04:06 Blood Urea Nitrogen 31 MG/DL (7-18) 34 MG/DL (7-18) 24 MG/DL (7-18) Creatinine 1.57 MG/DL 1.59 MG/DL (0.60-1.30) (0.60-1.30) Estimat Glomerular Filtration 42 ML/MIN (>89) 41 ML/MIN (>89) 55 ML/MIN (>89) Rate Antibody Screen POSITIVE Red Blood Count 3.92 MIL/MM3 3.53 MIL/MM3 (4.50-5.90) (4.50-5.90) Hemoglobin 11.0 GM/DL 9.9 GM/DL (13.0-17.0) (13.0-17.0) Hematocrit 33.5 % 29.8 % (39.0-51.0) (39.0-51.0) Monocytes (%) (Auto) 9.0 % (0.0-8.0) Chloride Level 108 MEQ/L (98-107) Calcium Level 8.3 MG/DL (8.5-10.1) HDL Cholesterol 26.8 MG/DL (40.0-60.0) Imaging Last Impressions Chest X-Ray 08/06/16 5748 Signed Impressions: Service Date/Time: August 23:24 - CONCLUSION: 1. Cardiomegaly. No acute pulmonary disease. Trevon Read MD PE at Discharge GENERAL:in NAD CARDIOVASCULAR: Regular rate and rhythm without murmurs, gallops, or rubs. RESPIRATORY: Breath sounds equal bilaterally. No accessory muscle use. GASTROINTESTINAL: Abdomen soft, non-tender, nondistended. MUSCULOSKELETAL: No cyanosis, or edema. BACK: Nontender without obvious deformity. No CVA tenderness. Pt update on day of discharge Follow-up or chest pain Nurse spoke [place] and was the cath lab technologist. Patient had no complaints. He denies chest pain, shortness of breathing, palpitation, lightheadedness dizziness. Patient was asking about diet. Otherwise he had no other acute events. Hospital Course 86-year-old male with who presented with chest pain and patient was found to have a NSTEMI NSTEMI with history of CAD- s/p CABG - Troponins 0.07, 0.82, 1.20. BNP 297. -Patient had initially cardiac catheterization on 08/08/2016 in which was found to have multi-vessel disease. - Patient was evaluated by cardiology. CT surgeon was consulted and patient declined CABG. - Echo showed EF of 40-45%. Diffuse hypokinesis. Grade 1 diastolic dysfunction. Mild regurgitation of aortic valve. - Continue atorvastatin 80 mg daily, aspirin 325 mg daily, metoprolol 50 mg twice a day. Ava therapy for symptomatic chest pain. He was initially put on heparin that was taken on heparin since he was chest pain-free. -Since patient declined CABG he had PCI on . severe three-vessel coronary artery disease and distal left main coronary artery, successful placement and utilization of left ventricular assist device, Impella 2.5 liter/ min device, successful utilization of temporary transvenous pacemaker, successful orbital rotation atherectomy, balloon angioplasty, endovascular stenting with drug-eluting stents to the distal left main and mid left anterior descending coronary artery. -Patient did well with the procedure and he was discharged home on brilliant, aspirin, statin, nitrate, lisinopril. Patient was taken off of metoprolol due to bradycardia. Renal insufficiency on admission - On the day of admission patient later developed renal insufficiency. Most likely due to FL. With IV fluids renal function improved. -history of prostate cancer- f/u as outpatient Pt Condition on Discharge: Good Discharge Disposition: Discharge Home Discharge Time: <= 30 minutes Discharge Instructions DIET: Follow Instructions for: Heart Healthy Diet, Low Fat Diet Other Activity Instructions: As directed by business librarian Follow up Referrals: Cardiology - [address] Solares PCP Follow-up - 1 Week New Medications: Aspirin (Adult Aspirin EC Low Strength) 81 Mg Tabec 81 MG PO DAILY CAD #30 Ref 0 TAB Atorvastatin (Atorvastatin) 40 Mg Tab 80 MG PO DAILY CAD #30 Ref 0 TAB Ferrous Sulfate (Ferosul) 325 Mg Tablet 325 MG PO DAILY anemia #30 Ref 0 TAB Isosorbide Mononitrate ER (Isosorbide Mononitrate ER) 60 Mg Tab 60 MG PO DAILY@0700 CAD #30 Ref 0 TAB Lisinopril (Lisinopril) 10 Mg Tab 10 MG PO DAILY CAD #30 Ref 0 TAB Ticagrelor (Brilinta) 90 Mg Tab 90 MG PO BID CAD #60 Ref 0 TAB Continued Medications: Tamsulosin (Flomax) 0.4 Mg Cap 0.4 MG PO HS Manage Prostate Problems #30 Ref 0 CAP Discontinued Medications: Isosorbide Mononitrate (Isosorbide Mononitrate) 10 Mg Tab 10 MG PO DAILY Take 2 doses 7 hours apart. Prevent Chest Pain #60 TAB Simvastatin (Simvastatin) 40 Mg Tab 40 MG PO HS Cholesterol Management #30 Ref 0 TAB Additional Information Patient was told need to repeat a BMP within a week with his primary care provider. It was also given him his discharge orders. Barbara Ortiz MD Aug 11, 2016 12:23
[2016-08-11] MEDS ORDERED: TICAGRELOR 90 MG TAB PO SCH (20:00)
--- NOTE | 2016-08-11 21:57 | EKG ---
Date Performed: 08/10/2016 Time Performed: 13:59:50 PTAGE: 86 years EKG: Sinus bradycardia with borderline 1st degree A-V block. Prolonged QT interval Inferior infa rct - age undetermined Lateral ST-T changes may be due to myocardial ischemia Since previous tracing, no significant change noted Abnormal ECG PREVIOUS TRACING : 08/08/2016 08.07 DOCTOR: Campbell Toledo Interpretating Date/Time 08/11/2016 21:55:38
--- NOTE | 2016-08-11 21:58 | EKG ---
Date Performed: 08/11/2016 Time Performed: 04:19:42 PTAGE: 86 years EKG: Sinus rhythm with borderline 1st degree A-V block Possible anterior infarct - age undetermined Inferior/lateral S T-T changes may be due to myocardial ischemia Since previous tracing, no significant change noted Abn ormal ECG PREVIOUS TRACING : 08/10/2016 13.59 DOCTOR: Campbell Toledo Interpretating Date/Time 08/11/2016 21:56:01
[2016-08-12] MEDS ORDERED: LISINOPRIL 10 MG TAB PO SCH (09:00)
== END 2016-08-11 15:06 | disposition home or self-care (01) | DRG 2 ==
LOC: PHED 22:57 → INTOOBSV 08-07 00:18 → PHEDA 08-07 00:18 → PH3B 08-07 01:21 → HCIS 08-07 11:02 → OBSVTOIN 08-08 10:24 → HCVR 08-10 13:30
PROVIDERS: ADMIT Family Medicine; ATTEND Family Medicine
PROC: B2121ZZ Fluoroscopy of Single Coronary Artery Bypass Graft using Low Osmolar Contrast (ICD-10-PCS; 2016-08-07)
PROC: B2111ZZ Fluoroscopy of Multiple Coronary Arteries using Low Osmolar Contrast (ICD-10-PCS; 2016-08-07)
PROC: 027135Z Dilation of Coronary Artery, Two Arteries with Two Drug-eluting Intraluminal Devices, Percutaneous Approach (ICD-10-PCS; 2016-08-10)
PROC: X2C1361 Extirpation of Matter from Coronary Artery, Two Arteries using Orbital Atherectomy Technology, Percutaneous Approach, New Technology Group 1 (ICD-10-PCS; 2016-08-10)
PROC: 5A0 Extracorporeal or Systemic Assistance and Performance, Physiological Systems, Assistance (ICD-10-PCS; 2016-08-10)
PROC: 02P Heart and Great Vessels, Removal (ICD-10-PCS; 2016-08-10)
PROC: B3101ZZ Fluoroscopy of Thoracic Aorta using Low Osmolar Contrast (ICD-10-PCS; 2016-08-10)
PROC: B240ZZ3 Ultrasonography of Single Coronary Artery, Intravascular (ICD-10-PCS; 2016-08-10)
PROC: B2111ZZ Fluoroscopy of Multiple Coronary Arteries using Low Osmolar Contrast (ICD-10-PCS; 2016-08-10)
PROC: 02H Heart and Great Vessels, Insertion (ICD-10-PCS; principal; 2016-08-10 13:45)
DX: I21.4 Non-ST elevation (NSTEMI) myocardial infarction (principal); I42.9 Cardiomyopathy, unspecified; R00.1 Bradycardia, unspecified; I25.810 Atherosclerosis of coronary artery bypass graft(s) without angina pectoris; I35.1 Nonrheumatic aortic (valve) insufficiency; I10 Essential (primary) hypertension; I25.10 Atherosclerotic heart disease of native coronary artery without angina pectoris; E78.5 Hyperlipidemia, unspecified; N28.9 Disorder of kidney and ureter, unspecified; I71.9 Aortic aneurysm of unspecified site, without rupture; N40.0 Benign prostatic hyperplasia without lower urinary tract symptoms; I25.84 Coronary atherosclerosis due to calcified coronary lesion; Z85.46 Personal history of malignant neoplasm of prostate; Z87.891 Personal history of nicotine dependence; Z92.21 Personal history of antineoplastic chemotherapy
CPT/HCPCS: 33210; 33990; 71010; 80048; 80053; 80061; 82550; 83735; 83880; 84484; 85002; 85025; 85027; 85576; 85610; 85730; 86077; 86850; 86870; 86900; 86901; 86902; 86920; 86922; 92933; 92934; 92978; 93005; 93306; 93454; 93567; 99285; C1714; C1725; C1753; C1760; C1769; C1785; C1874; C1887; C1893; G0269; J0360; J0461; J1265; J1644; J2250; J2270; J3010; J7030; Q9967

== ENCOUNTER 2016-08-13 12:15 | Observation (INO) | payer MEDICAID ==
[2016-08-13] VITALS (10 sets, daily range): BP systolic 103–157; BP diastolic 58–83; PULSE 64–84; RESP 14–18; TEMP 98.1–99.1; O2SAT 96–100
[~2016-08-13 12:15] MED LIST: ASPI-99 PO; ATOR40TA16 PO; BRIL90TA PO; FERR325T20 PO; ISOS60TA PO; LISI10TA3 PO; TAMS5CAP PO
[2016-08-13] MEDS ORDERED: SODIUM CHLORIDE 0.9% FLUSH 10 ML FLUSH IVF PRN (12:30)
[2016-08-13 12:49] LABS: AUTOMATED NEUTROPHIL # 5.5 TH/MM3 (1.8-7.7); BASOPHIL # 0.1 TH/MM3 (0-0.2); BASOPHIL % 1.2 % (0.0-2.0); EOSINOPHIL # 0.2 TH/MM3 (0-0.4); EOSINOPHIL % 2.7 % (0.0-4.0); HEMATOCRIT 32.4 % (39.0-51.0); HEMO FLAGS DIFF FINAL; LYMPH % 16.8 % (9.0-44.0); LYMPHOCYTE # 1.3 TH/MM3 (1.0-4.8); MEAN CORPUSCULAR HEMOGLOBIN 27.7 PG (27.0-34.0); MEAN CORPUSCULAR HGB CONC 32.9 % (32.0-36.0); NEUT % 71.3 % (16.0-70.0); PLATELET COUNT 210 TH/MM3 (150-450); RED BLOOD COUNT 3.86 MIL/MM3 (4.50-5.90); RED CELL DISTRIBUTION WIDTH 15.7 % (11.6-17.2); WHITE BLOOD COUNT 7.7 TH/MM3 (4.0-11.0)
[2016-08-13 13:01] LABS: CHLORIDE 108 MEQ/L (98-107); POTASSIUM 3.7 MEQ/L (3.5-5.1); SODIUM (NA) 140 MEQ/L (136-145)
[2016-08-13 13:05] LABS: ANION GAP 10 MEQ/L (5-15); BICARBONATE 21.6 MEQ/L (21.0-32.0); BLOOD UREA NITROGEN 23 MG/DL (7-18)
--- NOTE | 2016-08-13 13:06 | PD ---
HPI Chief Complaint: General Weakness Time Seen by Provider: 12:38 Travel History International Travel<30 days: No Contact w/Intl Traveler<30days: No Traveled to known affect area: No History of Present Illness HPI 86-year-old male with history of multiple medical issues, recent admission for CAD, stented by Dr. Solares, presents to the ER today brought in by his son because of general weakness for several days, increased disorientation, diarrhea. They deny any chest pains, shortness of breath, or any other symptoms. Modifying Factors: None Associated Signs & Symptoms: Altered mental status, weakness, diarrhea Risk Factors: Recent CAD with stents PFSH Past Medical History Hx Anticoagulant Therapy: Yes Arthritis: No Asthma: No Autoimmune Disease: No Heart Rhythm Problems: No Cancer: Yes (prostate) Cardiovascular Problems: Yes High Cholesterol: Yes Chemotherapy: Yes (1998) Chest Pain: No Congestive Heart Failure: No COPD: No Cerebrovascular Accident: No Coronary Artery Disease: Yes Diabetes: No Diminished Hearing: No Endocrine: No Gastrointestinal Disorders: No GERD: No Glaucoma: No Genitourinary: No Hepatitis: No Hiatal Hernia: No Hypertension: Yes Immune Disorder: No Inguinal Hernia: Yes Kidney Stones: No Musculoskeletal: No Neurologic: No Psychiatric: No Reproductive: No Respiratory: No Integumentary: No Migraines: No Radiation Therapy: No Renal Failure: No Seizures: No Sickle Cell Disease: No Sleep Apnea: No Thyroid Disease: No Ulcer: No Influenza Vaccination: Yes ?: Not Past Surgical History Abdominal Surgery: Yes (abdominal, umbilica hernia) AICD: No Arteriovenous Shunt: No Cardiac Surgery: Yes (heart surgery 1997) Coronary Artery Bypass Graft: Yes Coronary Stent: Yes Ear Surgery: No Endocrine Surgery: No Eye Surgery: No Genitourinary Surgery: No Gynecologic Surgery: Yes (prostate scraping.) Insulin Pump: No Joint Replacement: No Oral Surgery: No Pacemaker: No Thoracic Surgery: No Other Surgery: Yes (hernia repair) Social History Alcohol Use: Yes (OCC WINE) Tobacco Use: No Substance Use: No Allergies-Medications (Allergen,Severity, Reaction): Uncoded Allergies: dipyrone (Allergy, Intermediate, Hives, 08/06/16) Reported Meds & Prescriptions Reported Meds & Active Scripts Active Brilinta (Ticagrelor) 90 Mg Tab 90 Mg PO BID Lisinopril 10 Mg Tab 10 Mg PO DAILY Isosorbide Mononitrate ER (Isosorbide Mononitrate) 60 Mg Tab 60 Mg PO DAILY@0700 Ferosul (Ferrous Sulfate) 325 Mg Tablet 325 Mg PO DAILY Atorvastatin (Atorvastatin Calcium) 40 Mg Tab 80 Mg PO DAILY Adult Aspirin EC Low Strength (Aspirin) 81 Mg Tabec 81 Mg PO DAILY Reported Flomax (Tamsulosin HCl) 0.4 Mg Cap 0.4 Mg PO HS Review of Systems ROS Limitations: Altered Mental Status Physical Exam Narrative GENERAL: Well-developed elderly male patient currently in mild distress. Awake, mildly lethargic and disoriented. SKIN: Focused skin assessment warm/dry. HEAD: Atraumatic. Normocephalic. EYES: Pupils equal and round. No scleral icterus. No injection or drainage. Right eyelid ecchymosis. ENT: No nasal bleeding or discharge. Mucous membranes pink and moist. NECK: Trachea midline. No JVD. CARDIOVASCULAR: Regular rate and rhythm. No murmur appreciated. RESPIRATORY: No accessory muscle use. Clear to auscultation. Breath sounds equal bilaterally. GASTROINTESTINAL: Abdomen soft, non-tender, nondistended. Hepatic and splenic margins not palpable. RECTAL EXAM: No masses or tenderness, stool is brown. Greenish, Hemoccult negative MUSCULOSKELETAL: No obvious deformities. No clubbing. No cyanosis. No edema. NEUROLOGICAL: Awake and alert. No obvious cranial nerve deficits. Motor grossly within normal limits. Normal speech. PSYCHIATRIC: Lethargic; disoriented Data Data Last Documented VS Vital Signs Date Time Temp Pulse Resp B/P Pulse Ox O2 Delivery O2 Flow Rate FiO2 08/13/16 16:05 73 16 121/70 100 Room Air Orders Electrocardiogram (08/13/16 12:30) Complete Blood Count With Diff (08/13/16 12:30) Comprehensive Metabolic Panel (08/13/16 12:30) Magnesium (Mg) (08/13/16 12:30) Ckmb (Isoenzyme) Profile (08/13/16 12:30) Troponin I (08/13/16 12:30) Act Partial Throm Time (Ptt) (08/13/16 12:30) Prothrombin Time / Inr (Pt) (08/13/16 12:30) Urinalysis - C+S If Indicated (08/13/16 12:30) Chest, Single Ap (08/13/16 12:30) Ecg Monitoring (08/13/16 12:30) Iv Access Insert/Monitor (08/13/16 12:30) Oximetry (08/13/16 12:30) Sodium Chloride 0.9% Flush (Ns Flush) (08/13/16 12:30) Ct Brain W/O Iv Contrast(Rout) (08/13/16 12:38) Ct Cerv Spine W/O Contrast (08/13/16 12:38) CKMB (08/13/16 12:40) CKMB% (08/13/16 12:40) Cath For Specimen (08/13/16 14:17) Place In Observation (08/13/16 ) Vital Signs (Adult) Q4H (08/13/16 16:25) Activity Oob With Assistance (08/13/16 16:25) Metallurgical Tester / Telemetry .CONTINUOUS (08/13/16 16:25) Intake + Output LUIS F.QSHIFT (08/13/16 16:25) Diet Heart Healthy (08/13/16 Dinner) Sodium Chloride 0.9% Flush (Ns Flush) (08/13/16 16:30) Sodium Chloride 0.9% Flush (Ns Flush) (08/13/16 21:00) Comprehensive Metabolic Panel (08/14/16 06:00) Complete Blood Count With Diff (08/14/16 06:00) Pt Request For Service (08/13/16 16:25) Case Management Consult (08/13/16 16:25) Scd Bilateral/Knee High LUIS F.BID (08/13/16 16:25) Naloxone Inj (Narcan Inj) (08/13/16 16:30) Docusate Sodium-Senna (May-Colace) (08/13/16 21:00) Magnesium Hydroxide Liq (Milk Of Magnesi (08/13/16 21:00) Sennosides (Senokot) (08/13/16 21:00) Bisacodyl Supp (Dulcolax Supp) (08/13/16 17:00) Lactulose Liq (Lactulose Liq) (08/13/16 21:00) Admit Order (Ed Use Only) (08/13/16 16:26) Labs Laboratory Tests Test 08/13/16 08/13/16 12:40 14:35 White Blood Count 7.7 TH/MM3 Red Blood Count 3.86 MIL/MM3 Hemoglobin 10.7 GM/DL Hematocrit 32.4 % Mean Corpuscular Volume 84.0 FL Mean Corpuscular Hemoglobin 27.7 PG Mean Corpuscular Hemoglobin 32.9 % Concent Red Cell Distribution Width 15.7 % Platelet Count 210 TH/MM3 Mean Platelet Volume 8.9 FL Neutrophils (%) (Auto) 71.3 % Lymphocytes (%) (Auto) 16.8 % Monocytes (%) (Auto) 8.0 % Eosinophils (%) (Auto) 2.7 % Basophils (%) (Auto) 1.2 % Neutrophils # (Auto) 5.5 TH/MM3 Lymphocytes # (Auto) 1.3 TH/MM3 Monocytes # (Auto) 0.6 TH/MM3 Eosinophils # (Auto) 0.2 TH/MM3 Basophils # (Auto) 0.1 TH/MM3 CBC Comment DIFF FINAL Differential Comment Prothrombin Time 10.7 SEC Prothromb Time International 1.0 RATIO Ratio Activated Partial 24.3 SEC Thromboplast Time Sodium Level 140 MEQ/L Potassium Level 3.7 MEQ/L Chloride Level 108 MEQ/L Carbon Dioxide Level 21.6 MEQ/L Anion Gap 10 MEQ/L Blood Urea Nitrogen 23 MG/DL Creatinine 1.70 MG/DL Estimat Glomerular Filtration 38 ML/MIN Rate Random Glucose 119 MG/DL Calcium Level 8.4 MG/DL Magnesium Level 2.0 MG/DL Total Bilirubin 0.5 MG/DL Aspartate Amino Transf 35 U/L (AST/SGOT) Alanine Aminotransferase 27 U/L (ALT/SGPT) Alkaline Phosphatase 44 U/L Total Creatine Kinase 155 U/L Creatine Kinase MB 5.2 NG/ML Troponin I 0.41 NG/ML Total Protein 6.9 GM/DL Albumin 3.2 GM/DL Urine Collection Type CLEAN CATCH Urine Color YELLOW Urine Turbidity CLEAR Urine pH 5.5 Urine Specific [place] 1.010 Urine Protein NEG mg/dL Urine Glucose (UA) NEG mg/dL Urine Ketones NEG mg/dL Urine Occult Blood MOD Urine Nitrite NEG Urine Bilirubin NEG Urine Leukocyte Esterase NEG Urine RBC 0-3 /hpf Urine WBC 3-5 /hpf Urine Squamous Epithelial 0-5 /hpf Cells Microscopic Urinalysis Comment CULT NOT INDICATED MDM Medical Decision Making Medical Screen Exam Complete: Yes Emergency Medical Condition: Yes Medical Record Reviewed: Yes Interpretation(s) EKG shows normal sinus rhythm at a rate of [address] depression in the lateral leads. No signs of acute ST elevations. Laboratory Tests Test 08/13/16 08/13/16 12:40 14:35 Red Blood Count 3.86 MIL/MM3 (4.50-5.90) Hemoglobin 10.7 GM/DL (13.0-17.0) Hematocrit 32.4 % (39.0-51.0) Neutrophils (%) (Auto) 71.3 % (16.0-70.0) Chloride Level 108 MEQ/L (98-107) Blood Urea Nitrogen 23 MG/DL (7-18) Creatinine 1.70 MG/DL (0.60-1.30) Estimat Glomerular Filtration 38 ML/MIN (>89) Rate Random Glucose 119 MG/DL (74-106) Calcium Level 8.4 MG/DL (8.5-10.1) Alkaline Phosphatase 44 U/L (45-117) Creatine Kinase MB 5.2 NG/ML (0.5-3.6) Troponin I 0.41 NG/ML (0.02-0.05) Albumin 3.2 GM/DL (3.4-5.0) Urine Occult Blood MOD (NEG) Last [address] 08/13/16 1238 Signed Impressions: Service Date/Time: August 14:38 - CONCLUSION: 1. No acute intracranial abnormality. Reuben Melissa MD Cervical Spine CT 08/13/16 1238 Signed Impressions: Service Date/Time: August 14:38 - CONCLUSION: 1. No acute fracture or dislocation. 2. Old compression deformity involving T2. 3. Multilevel degenerative changes without central canal stenosis or neural impingement. 4. Atherosclerotic calcifications throughout the carotid arteries and vertebral arteries. Oscar Lambert Jr., MD Chest X-Ray 08/13/16 1230 Signed Impressions: Service Date/Time: August 12:55 - CONCLUSION: Submaximal inspiration. No definite infiltrates seen. Oscar Rojo MD Differential Diagnosis General weakness, diarrhea, altered mental statusmetabolic abnormalities versus dehydration versus sepsis versus C. difficile diarrhea versus acute intracranial processes Narrative Course Troponins are mildly elevated on evaluation there are ST depressions in the lateral leads although patient has no chest pains currently. At this point, my plan would be to admit the patient for further treatment. Case is discussed with Dr. Johansen for admission. [facility] Point of Care Internal Pos. & Neg. Controls: Passed Fecal Specimen Occult Blood: Negative Diagnosis Primary Impression: Elevated troponin I level Additional Impression: Altered mental status Admitting Information Admitting Physician Requests: Admit Isabell Perry MD Aug 13, 2016 13:06
[2016-08-13 13:08] LABS: ALT (GPT) 27 U/L (12-78); AST (GOT) 35 U/L (15-37); GLOMERULAR FILTRATION RATE 38 ML/MIN (>89)
[2016-08-13 13:09] LABS: TOTAL BILIRUBIN ADULT 0.5 MG/DL (0.2-1.0)
[2016-08-13 13:11] LABS: ALKALINE PHOSPHATASE 44 U/L (45-117); CREATINE KINASE 155 U/L (39-308)
[2016-08-13 13:12] LABS: APTT (PATIENT) 24.3 SEC (24.3-30.1); PROTHROMBIN TIME - PATIENT 10.7 SEC (9.8-11.6)
[2016-08-13 13:23] LABS: CKMB 5.2 NG/ML (0.5-3.6)
--- NOTE | 2016-08-13 13:44 | RADHPO ---
EXAM DATE/TIME: 08/13/2016 12:55 [facility] COMPARISON: CHEST SINGLE AP, August 06, 2016, 23:24. INDICATIONS : Low blood pressure, faint, palpatations. MEDICAL HISTORY : Myocardial infarction. Hypercholesterolemia. Carcinoma, prostatic. CAD. Enlarged prostate. HTN. I nguinal hernia. Chemotherapy. Renal disease. SURGICAL HISTORY : CABG. Umbilical hernia repair. Prostatic scraping. ENCOUNTER: Initial ACUITY: 1 day PAIN SCORE: Non-responsive. LOCATION: chest FINDINGS: There is some indistinctness of the central bronchopulmonary markings which could be due to submaxima l inspiration. No peripheral areas of consolidation. Both hemidiaphragms are discernible. The hear t is normal size. Evidence of prior median sternotomy. CONCLUSION: Submaximal inspiration. No definite infiltrates seen. Oscar Rojo MD on August 13, 2016 at 13:42 Board Certified Radiologist. This report was verified electronically.
[2016-08-13 14:47] LABS: GLUCOSE,URINE NEG (NEG); KETONE, URINE NEG (NEG); NITRITE,URINE NEG (NEG); PH, URINE 5.5 (5.0-8.5)
[2016-08-13 14:49] LABS: BLOOD, URINE MOD (NEG); METHOD OF COLLECTION CLEAN CATCH; URINE COLOR YELLOW (YELLW/STRAW)
[2016-08-13 14:51] LABS: COMMENT (UR) CULT NOT INDICATED; CULTURE IF INDICATED CULT NOT INDICATED; RBC, URINE 0-3 /hpf (0-3); SQUAMOUS EPITHELIAL CELL URINE 0-5 /hpf (0-5)
--- NOTE | 2016-08-13 15:11 | RADHPO ---
EXAM DATE/TIME: 08/13/2016 14:38 [facility] COMPARISON: No previous studies available for comparison. INDICATIONS : General weakness. Increased disorientation. Possible fall. RADIATION DOSE: 26.49 CTDIvol (mGy) MEDICAL HISTORY : Carcinoma, prostate. Myocardial infarction. Renal failure, chronic.Hypertension. SURGICAL HISTORY : CABG ENCOUNTER: Initial ACUITY: 4 - 6 days PAIN SCALE: 0/10 LOCATION: neck TECHNIQUE: Volumetric scanning of the cervical spine was performed. Multiplanar reconstructions in the sagittal, coronal and oblique axial planes were performed. Using automated exposure control and adjustment o f the mA and/or kV according to patient size, radiation dose was kept as low as reasonably achievable to obtain optimal diagnostic quality images. FINDINGS: VERTEBRAE: Mild loss of height of the superior endplate of T2. No cortical or trabecular irregularity. Remaining vertebral body heights are normal height. ALIGNMENT: No evidence of subluxation. Calcified plaque involving the carotid arteries and vertebral arteries. C2-C3: The bony spinal canal is normal in size. No evidence of disc bulge or herniation. The neural forami na are bilaterally patent. C3-C4: There is a mild central bulge. No central canal stenosis or abutment of the cord. Neural foramina are patent bilaterally. C4-C5: Disc space narrowing without bulge or protrusion. Bony uncovertebral hypertrophy without neural viral inal narrowing. C5-C6: Disc space narrowing without bulge or protrusion. Bony uncovertebral hypertrophy without neural viral inal narrowing. C6-C7: There is disc space narrowing without bulge or protrusion. Bony uncovertebral hypertrophy generates m ild left neural foraminal narrowing. The right is patent. C7-T1: The bony spinal canal is normal in size. No evidence of disc bulge or herniation. The neural forami na are bilaterally patent. CONCLUSION: 1. No acute fracture or dislocation. 2. Old compression deformity involving T2. 3. Multilevel degenerative changes without central canal stenosis or neural impingement. 4. Atherosclerotic calcifications throughout the carotid arteries and vertebral arteries. Oscar Lambert Jr., MD on August 13, 2016 at 15:03 Board Certified Radiologist. This report was verified electronically.
--- NOTE | 2016-08-13 15:27 | RADHPO ---
EXAM DATE/TIME: 08/13/2016 14:38 [facility] COMPARISON: No previous studies available for comparison. INDICATIONS : General weakness. Increased disorientation. Possible fall. RADIATION DOSE: 67.04 CTDIvol (mGy) MEDICAL HISTORY : Carcinoma, prostate. Myocardial infarction. Renal failure, chronic.Hypertension. SURGICAL HISTORY : CABG ENCOUNTER: Initial ACUITY: 4 - 6 days PAIN SCALE: 0/10 LOCATION: cranial TECHNIQUE: Multiple contiguous axial images were obtained of the head. Using automated exposure control and adj ustment of the mA and/or kV according to patient size, radiation dose was kept as low as reasonably a chievable to obtain optimal diagnostic quality images. FINDINGS: CEREBRUM: The ventricles are normal for age. No evidence of midline shift, mass lesion, hemorrhage or acute in farction. No extra-axial fluid collections are seen. POSTERIOR FOSSA: The cerebellum and brainstem are intact. The 4th ventricle is midline. The cerebellopontine angle i s unremarkable. EXTRACRANIAL: The visualized portion of the orbits is intact. SKULL: The calvaria is intact. No evidence of skull fracture. CONCLUSION: 1. No acute intracranial abnormality. Reuben Melissa MD on August 13, 2016 at 15:14 Board Certified Radiologist. This report was verified electronically.
[2016-08-13] MEDS ORDERED: NALOXONE HCL 0.4 MG/ML AMP IV PRN (16:30)
[2016-08-13] MEDS ORDERED: SODIUM CHLORIDE 0.9% FLUSH 10 ML FLUSH IV FLUSH PRN (16:30)
[2016-08-13] MEDS ORDERED: BISACODYL 10 MG SUPP RECTAL PRN (17:00)
--- NOTE | 2016-08-13 17:55 | HHI.HP ---
[facility] [place] Non-Staff Admission Diagnosis dizziness/altered mental status/elevated troponin Diagnoses: (1) Lightheaded Diagnosis: Principal (2) Diarrhea Diagnosis: Principal (3) Elevated troponin I level Diagnosis: Secondary (4) CAD (coronary artery disease) Diagnosis: Secondary (5) Chronic kidney disease, stage 3 Diagnosis: Secondary Chief Complaint: Diarrhea with lightheadedness and dizziness Travel History International Travel<30 Days: No Contact w/Intl Traveler <30 Da: No Traveled to Known Affected Are: No History of Present Illness Written by Paul Edwards, acting as scribe for Dr. Johansen on 08/13/16 at 17: 37. 86-year-old male who only speaks [place]ian with rather complex cardiac history with coronary disease, recent hospitalization for non-ST elevated myocardial infarction undergoing 2 cardiac catheterizations, intervention. Patient was discharged home 2 days ago. Patient was in normal state of health until this morning when he got up and he had before problems today. He described them as explosive black watery bowel movements. After bowel movements he had lightheadedness, dizziness, possible near syncope. He denied any loss of consciousness. He denied any chest pain, shortness of breath, dyspnea, abdominal pain. The patient was brought to the hospital by his son, whom has left to go to work. Information was taken from patient by nurse that speaks [place]ian. At time evaluating patient he is doing rather well. Patient had workup done which did indicate elevated troponin, changes in EKGs. Case was discussed with Dr. Bruno, who indicated that the troponin elevation could be normal elevation from previous intervention and myocardial infarction. He indicates that the changes EKG can also be related to his recent cardiac episodes. Does not feel that the patient has any cardiac etiology this time. Patient does not have any cardiac complaints. ER physician requested patient be observed in the hospital due to his presentation. Review of Systems Constitutional: DENIES: Diaphoretic episodes, Fatigue, Fever, Weight gain, Weight loss, Chills, Dizziness, Change in appetite, Night Sweats Eyes: DENIES: Blurred vision, Diplopia, Eye inflammation, Eye pain, Vision loss , Double Vision Ears, nose, mouth, throat: DENIES: Vertigo, Nasal discharge, Throat pain, Ear Pain, Running Nose, Sinus Pain Respiratory: DENIES: Apneas, Cough, Snoring, Wheezing, Hemoptysis, Sputum production, Shortness of breath Cardiovascular: DENIES: Chest pain, Palpitations, Syncope, Dyspnea on Exertion , Lower Extremity Edema, Orthopnea Gastrointestinal: COMPLAINS OF: Black stools, Diarrhea, DENIES: Abdominal pain , Bloody stools, Constipation, Nausea, Vomiting, Difficulty Swallowing, Anorexia Neurologic: DENIES: Abnormal gait, Headache, Localized weakness, Paresthesias, Seizures, Speech Problems, Tremor, Poor Balance Past Family Social History Past Medical History Hypertension Hyperlipidemia Coronary artery disease History myocardial infarction History of prostate cancer Chronic kidney disease stage III Past Surgical History Cardiac catheterization with stent placement Cataract surgery Varicocele surgical repair Umbilical hernia repair Prostate surgery Right knee surgery Coronary bypass surgery Reported Medications Reported Meds & Active Scripts Active Brilinta (Ticagrelor) 90 Mg Tab 90 Mg PO BID Lisinopril 10 Mg Tab 10 Mg PO DAILY Isosorbide Mononitrate ER (Isosorbide Mononitrate) 60 Mg Tab 60 Mg PO DAILY@0700 Ferosul (Ferrous Sulfate) 325 Mg Tablet 325 Mg PO DAILY Atorvastatin (Atorvastatin Calcium) 40 Mg Tab 80 Mg PO DAILY Adult Aspirin EC Low Strength (Aspirin) 81 Mg Tabec 81 Mg PO DAILY Reported Flomax (Tamsulosin HCl) 0.4 Mg Cap 0.4 Mg PO HS Allergies: Uncoded Allergies: dipyrone (Allergy, Intermediate, Hives, 08/06/16) Family History Reviewed is significant for mother having cancer. Denies any diabetes, seizures , strokes Social History Patient quit smoking over 60 years ago. Does drink alcohol occasionally. Denies any illicit drugs Physical Exam Vital Signs Vital Signs Date Time Temp Pulse Resp B/P Pulse Ox O2 Delivery O2 Flow Rate FiO2 08/13/16 17:05 82 14 150/74 98 Room Air 08/13/16 16:05 73 16 121/70 100 Room Air 08/13/16 15:05 78 14 124/62 96 Room Air 08/13/16 14:15 81 16 103/59 98 Room Air 08/13/16 13:10 84 16 113/58 100 Room Air 08/13/16 12:40 97 Room Air 08/13/16 12:20 64 18 128/61 97 Physical Exam GENERAL: Well-developed, well-nourished, in no acute distress. alert and orientated HEENT: Head is normocephalic without any lesions or masses noted. Facial features are symmetric. Eyes: Pupils equal round reactive to light. Extraocular muscles are intact. Conjunctivae were clear. Oropharyngeal: Pharynx without any erythema edema. Tongue is midline without deviation. Buccal mucosa is moist without any masses or lesions NECK: Supple without any masses. Trachea midline no deviation. No JVD, no bruits are appreciated CARDIAC: Regular rhythm, regular rate. S1/S2 are heard. 2 or 6 ejection murmur , no gallops or rubs. LUNGS: Clear to auscultation bilaterally. No wheeze, rhonchi or rales. No use of accessory muscles on inspiration or expiration. ABDOMEN: Soft, nontender. Nondistended. Bowel sounds heard in all 4 quadrants. No organomegaly or masses. Negative rebound, negative guarding EXTREMITIES: No edema, pulses are equal bilaterally. No cyanosis or clubbing NEUROLOGY: Mood and affect appear appropriate. Cranial nerves II through XII grossly intact. Muscle strength 5/5 in upper and lower extremities bilaterally. Deep tendon reflexes are 2+ in upper and lower extremities bilaterally. Laboratory Laboratory Tests Test 08/13/16 08/13/16 08/13/16 12:40 14:35 16:50 White Blood Count 7.7 Red Blood Count 3.86 Hemoglobin 10.7 Hematocrit 32.4 Mean Corpuscular Volume 84.0 Mean Corpuscular Hemoglobin 27.7 Mean Corpuscular Hemoglobin 32.9 Concent Red Cell Distribution Width 15.7 Platelet Count 210 Mean Platelet Volume 8.9 Neutrophils (%) (Auto) 71.3 Lymphocytes (%) (Auto) 16.8 Monocytes (%) (Auto) 8.0 Eosinophils (%) (Auto) 2.7 Basophils (%) (Auto) 1.2 Neutrophils # (Auto) 5.5 Lymphocytes # (Auto) 1.3 Monocytes # (Auto) 0.6 Eosinophils # (Auto) 0.2 Basophils # (Auto) 0.1 CBC Comment DIFF FINAL Differential Comment Prothrombin Time 10.7 Prothromb Time International 1.0 Ratio Activated Partial 24.3 Thromboplast Time Sodium Level 140 Potassium Level 3.7 Chloride Level 108 Carbon Dioxide Level 21.6 Anion Gap 10 Blood Urea Nitrogen 23 Creatinine 1.70 Estimat Glomerular Filtration 38 Rate Random Glucose 119 Calcium Level 8.4 Magnesium Level 2.0 Total Bilirubin 0.5 Aspartate Amino Transf 35 (AST/SGOT) Alanine Aminotransferase 27 (ALT/SGPT) Alkaline Phosphatase 44 Total Creatine Kinase 155 Creatine Kinase MB 5.2 Troponin I 0.41 0.38 Total Protein 6.9 Albumin 3.2 Urine Collection Type CLEAN CATCH Urine Color YELLOW Urine Turbidity CLEAR Urine pH 5.5 Urine Specific [place] 1.010 Urine Protein NEG Urine Glucose (UA) NEG Urine Ketones NEG Urine Occult Blood MOD Urine Nitrite NEG Urine Bilirubin NEG Urine Leukocyte Esterase NEG Urine RBC 0-3 Urine WBC 3-5 Urine Squamous Epithelial 0-5 Cells Microscopic Urinalysis Comment CULT NOT INDICATED Result Diagram: 08/13/16 1240 08/13/16 1240 Imaging Last Impressions Head CT 08/13/16 1238 Signed Impressions: Service Date/Time: August 14:38 - CONCLUSION: 1. No acute intracranial abnormality. Reuben Melissa MD Cervical Spine CT 08/13/168 Signed Impressions: Service Date/Time: August 14:38 - CONCLUSION: 1. No acute fracture or dislocation. 2. Old compression deformity involving T2. 3. Multilevel degenerative changes without central canal stenosis or neural impingement. 4. Atherosclerotic calcifications throughout the carotid arteries and vertebral arteries. Oscar Lambert Jr., MD Chest X-Ray 08/13/16 1230 Signed Impressions: Service Date/Time: August 12:55 - CONCLUSION: Submaximal inspiration. No definite infiltrates seen. Oscar Rojo MD Assessment and Plan Assessment and Plan //Diarrhea adult patient with explosive black watery stool and associated lightheadedness, dizziness -Patient has not had any recent antibiotics or recent travel to indicate any infectious diarrhea -ER physician did occult blood in stool which was negative -Continue monitor stool output -Continue IV fluids -Obtain physical therapy evaluation -Obtain orthostatic vitals -Continue trend hemoglobin/hematocrit to evaluate for acute GI blood loss //Hypertension, hyponatremia, coronary artery disease with recent cardiac catheterization and intervention -Patient with elevated troponin which is trending down -EKG shows changes with T-wave inversions in septal lateral leads -Case was discussed with assembler for puller over machine Dr. bruno, he indicated that troponin elevations and EKG changes could be associated with recent myocardial infarction and intervention -Binding Cementer French Cord indicates that he'll be happy to evaluate the patient the patient has any cardiac complaints //Chronic kidney disease stage III -Continue IV fluids -Monitor renal function -Avoid nephrotoxins //DVT prevention -Sequential compression devices Discussed Condition With patient, nurse, ED physician This note was transcribed by scribe [Paul Edwards]. I, Dr. Johnny Johansen personally performed the history, physical exam, and medical decision making; and confirmed the accuracy of the information in the transcribed note. Authenticated by Dr. Johnny Johansen on 08/14/16 at 08:25. Problem Qualifiers (1) Diarrhea: Qualified Code: R19.7 - Diarrhea, unspecified type (2) CAD (coronary artery disease): Qualified Code: I25.10 - Coronary artery disease, angina presence unspecified, unspecified vessel or lesion type, unspecified whether [place] or transplanted heart Paul Edwards Aug 13, 2016 17:55 Johnny Johansen MD Aug 14, 2016 08:25
[2016-08-13] MEDS: NS + KCL 20 MEQ INJ 1,000 ML IV SCH (18:36)
[2016-08-13 19:04] LABS: HEMATOCRIT 32.4 % (39.0-51.0); REVIEW FLAG FINAL
[2016-08-13] MEDS ORDERED: LACTULOSE SYRUP 20 GM/30 ML CUP PO PRN (21:00)
[2016-08-13] MEDS ORDERED: SENNOSIDES 8.6 MG TAB PO PRN (21:00)
[2016-08-13] MEDS: DOCUSATE SODIUM 50 MG/SENNA 8.6 MG TAB PO SCH (21:00)
[2016-08-13] MEDS ORDERED: MAGNESIUM HYDROXIDE SUSP 30 ML CUP PO PRN (21:00)
[2016-08-13] MEDS: SODIUM CHLORIDE 0.9% FLUSH 10 ML FLUSH IV FLUSH SCH (21:20)
[2016-08-13] MEDS: TICAGRELOR 90 MG TAB PO SCH (21:20)
[2016-08-13] MEDS: TAMSULOSIN HCL 0.4 MG CAP PO SCH (21:20)
[2016-08-14] VITALS (7 sets, daily range): BP systolic 110–148; BP diastolic 61–75; PULSE 77–95; RESP 12–20; TEMP 97–102.3; O2SAT 98–100
[2016-08-14 01:02] LABS: HEMATOCRIT 30.4 % (39.0-51.0); REVIEW FLAG FINAL
[2016-08-14] MEDS: ISOSORBIDE MONONITRATE 60 MG TAB PO SCH (06:10)
[2016-08-14] MEDS: NS + KCL 20 MEQ INJ 1,000 ML IV SCH ×2 (06:10→20:06)
[2016-08-14 07:09] LABS: AUTOMATED NEUTROPHIL # 5.8 TH/MM3 (1.8-7.7); BASOPHIL % 0.4 % (0.0-2.0); EOSINOPHIL # 0.2 TH/MM3 (0-0.4); EOSINOPHIL % 2.3 % (0.0-4.0); HEMATOCRIT 30.2 % (39.0-51.0); HEMO FLAGS DIFF FINAL; LYMPH % 12.1 % (9.0-44.0); LYMPHOCYTE # 0.9 TH/MM3 (1.0-4.8); MEAN CELL VOLUME 84.1 FL (80.0-100.0); MEAN CORPUSCULAR HEMOGLOBIN 27.7 PG (27.0-34.0); MEAN CORPUSCULAR HGB CONC 32.9 % (32.0-36.0); MONO % 7.7 % (0.0-8.0); NEUT % 77.5 % (16.0-70.0); PLATELET COUNT 186 TH/MM3 (150-450); RED BLOOD COUNT 3.59 MIL/MM3 (4.50-5.90); RED CELL DISTRIBUTION WIDTH 15.7 % (11.6-17.2); WHITE BLOOD COUNT 7.5 TH/MM3 (4.0-11.0)
[2016-08-14 07:13] LABS: CHLORIDE 111 MEQ/L (98-107); POTASSIUM 3.8 MEQ/L (3.5-5.1); SODIUM (NA) 142 MEQ/L (136-145)
[2016-08-14 07:21] LABS: ANION GAP 10 MEQ/L (5-15); BICARBONATE 21.3 MEQ/L (21.0-32.0); BLOOD UREA NITROGEN 24 MG/DL (7-18)
[2016-08-14 07:24] LABS: ALT (GPT) 25 U/L (12-78); AST (GOT) 29 U/L (15-37); GLOMERULAR FILTRATION RATE 52 ML/MIN (>89)
[2016-08-14 07:25] LABS: TOTAL BILIRUBIN ADULT 0.5 MG/DL (0.2-1.0)
[2016-08-14 07:27] LABS: ALKALINE PHOSPHATASE 41 U/L (45-117)
[2016-08-14] MEDS: LISINOPRIL 10 MG TAB PO SCH (09:26)
[2016-08-14] MEDS: ATORVASTATIN 40 MG TAB PO SCH (09:26)
[2016-08-14] MEDS: DOCUSATE SODIUM 50 MG/SENNA 8.6 MG TAB PO SCH ×3 (09:26→21:56)
[2016-08-14] MEDS: FERROUS SULFATE 325 MG (65 MG ELEMENTAL IRON) TAB PO SCH (09:26)
[2016-08-14] MEDS: TICAGRELOR 90 MG TAB PO SCH ×2 (09:28→21:56)
[2016-08-14] MEDS: ASPIRIN EC 81 MG TABEC PO SCH (09:28)
--- NOTE | 2016-08-14 14:15 | HHI.DCPOC ---
Discharge Care Plan Diagnosis: (1) Lightheaded (2) Diarrhea Goals to Promote Your Health * To prevent worsening of your condition and complications * To maintain your health at the optimal level Directions to Meet Your Goals Take your medications as prescribed Follow your dietary instruction Follow activity as directed Keep your appointments as scheduled Take your immunizations and boosters as scheduled If your symptoms worsen call your PCP, if no PCP go to Urgent Care Center or Emergency Room Smoking is Dangerous to Your Health. Avoid second hand smoke Call the 24-hour hour crisis hotline for domestic abuse at Paul Edwards Aug 14, 2016 14:15
--- NOTE | 2016-08-14 14:15 | HHI.PR ---
Subjective Remarks Written by Paul Edwards, acting as scribe for Dr. Johansen on 08/14/16 at 14: 11. Patient seen and examined today with Dr. Johansen. Translation services were used. Patient states that he is feeling much better. He states that he was up with physical therapy and walked around without any complications. Patient indicates that he is ready to go home. Patient is not having any recurrent diarrhea. Denies any chest pain, shortness of breath, abdominal pain Objective Vitals Vital Signs Date Time Temp Pulse Resp B/P Pulse Ox O2 Delivery O2 Flow Rate FiO2 08/14/16 12:00 98.7 90 19 112/66 98 08/14/16 08:00 100.4 95 20 110/61 98 08/14/16 04:00 99.8 77 16 144/75 99 08/14/16 00:00 97.0 82 18 148/70 100 08/13/16 20:00 66 08/13/16 20:00 99.1 83 18 126/74 98 08/13/16 19:13 82 08/13/16 18:15 98.1 79 18 157/83 100 08/13/16 17:05 82 14 150/74 98 Room Air 08/13/16 16:05 73 16 121/70 100 Room Air 08/13/16 15:05 78 14 124/62 96 Room Air 08/13/16 14:15 81 16 103/59 98 Room Air I/O 08/13/16 08/13/16 08/13/16 08/14/16 08/14/16 08/14/16 07:00 15:00 23:00 07:00 15:00 23:00 Intake Total 350 ml 120 ml 650 ml Output Total 900 ml Balance 350 ml -780 ml 650 ml Intake Oral 350 ml 120 ml 650 ml Output Urine Total 900 ml # Bowel Movements 0 Result Diagram: 08/14/1647 08/14/16 0547 Objective Remarks GENERAL: Well-developed, well-nourished, in no acute distress. alert and orientated HEENT: Head is normocephalic without any lesions or masses noted. Facial features are symmetric. Eyes: Extraocular muscles are intact. Conjunctivae were clear. Oropharyngeal: Pharynx without any erythema edema. Tongue is midline without deviation. Buccal mucosa is moist without any masses or lesions NECK: Supple without any masses. Trachea midline no deviation. No JVD, CARDIAC: Regular rhythm, regular rate. S1/S2 are heard. 2 /6 ejection murmur, no gallops or rubs. LUNGS: Clear to auscultation bilaterally. No wheeze, rhonchi or rales. No use of accessory muscles on inspiration or expiration. ABDOMEN: Soft, nontender. Nondistended. Bowel sounds heard in all 4 quadrants. No organomegaly or masses. Negative rebound, negative guarding EXTREMITIES: No edema, pulses are equal bilaterally. No cyanosis or clubbing NEUROLOGY: Mood and affect appear appropriate. Cranial nerves II through XII grossly intact. Moving all extremities, Urinary Catheter: No Vascular Central Line Catheter: No A/P Assessment and Plan //Diarrhea adult patient with explosive black watery stool and associated lightheadedness, dizziness, resolved -Patient has not had any recent antibiotics or recent travel to indicate any infectious diarrhea -ER physician did occult blood in stool which was negative -Continue monitor stool output -Continue IV fluids -Physical therapy evaluation -Orthostatic vitals -Continue trend hemoglobin/hematocrit to evaluate for acute GI blood loss, without any significant drop //Hypertension, hyperlipidemia, coronary artery disease with recent cardiac catheterization and intervention -Patient with elevated troponin and has continued to trend downward -EKG shows changes with T-wave inversions in septal lateral leads -Case was discussed with help desk manager Dr. Solares, he indicated that troponin elevations and EKG changes could be associated with recent myocardial infarction and intervention -Frequency Checker indicates that he'll be happy to evaluate the patient the patient has any cardiac complaints //Chronic kidney disease stage III -Renal functions improved with IV hydration -Monitor renal function -Avoid nephrotoxins //DVT prevention -Sequential compression devices Discussed with son via phone: Notified them of patient's condition, clinical improvement, plans for discharge. He is in agreement at this time. Discharge Planning plan for discharge, however patient developed fever. Workup pending. This note was transcribed by scribe [Paul Edwards]. I, Dr. Johnny Johansen personally performed the history, physical exam, and medical decision making; and confirmed the accuracy of the information in the transcribed note. Authenticated by Dr. Johnny Johansen on 08/14/16 at 22:28. Paul Edwards Aug 14, 2016 14:15 Johnny Johansen MD Aug 14, 2016 22:28 Paul Edwards Aug 14, 2016 14:15
--- NOTE | 2016-08-14 17:36 | EKG ---
Date Performed: 08/13/2016 Time Performed: 22:44:50 PTAGE: 86 years EKG: Sinus arrhythmia with PVC(s). Inferior infarct - age undetermined Possible anteroseptal inf arct - age undetermined Lateral ST-T changes Abnormal ECG PREVIOUS TRACING : 08/13/2016 16.39 Compared to prior tracing no significant change DOCTOR: Harleen Sandoval Interpretating Date/Time 08/14/2016 17:34:23
--- NOTE | 2016-08-14 17:50 | EKG ---
Date Performed: 08/13/2016 Time Performed: 16:39:22 PTAGE: 86 years EKG: Sinus rhythm with borderline 1st degree A-V block Possible anterior infarct - age undetermined Inferior/lateral S T-T changes Low QRS voltages in precordial leads Abnormal ECG PREVIOUS TRACING : 08/13/2016 12.13 Compared to prior tracing no significant change DOCTOR: Harleen Sandoval Interpretating Date/Time 08/14/2016 17:48:18
--- NOTE | 2016-08-14 17:56 | EKG ---
Date Performed: 08/13/2016 Time Performed: 12:13:40 PTAGE: 86 years EKG: Sinus rhythm Inferior infarct - age undetermined Possible anterior infarct - age undetermined Diffuse ST-T change s Low QRS voltages in precordial leads Abnormal ECG PREVIOUS TRACING : 08/11/2016 04.19 Compared to prior tracing no significant change DOCTOR: Harleen Sandoval Interpretating Date/Time 08/14/2016 17:56:00
[2016-08-14] MEDS ORDERED: ACETAMINOPHEN 325 MG TAB PO PRN (18:30)
[2016-08-14] MEDS: TAMSULOSIN HCL 0.4 MG CAP PO SCH (21:56)
[2016-08-14] MEDS: SODIUM CHLORIDE 0.9% FLUSH 10 ML FLUSH IV FLUSH SCH (21:56)
[2016-08-15 00:29] VITALS: BP 130/78; PULSE 89; RESP 12; TEMP 101.3; O2SAT 97
[2016-08-15 04:11] VITALS: BP 142/76; PULSE 81; RESP 12; TEMP 100.2; O2SAT 96
[2016-08-15] MEDS: ISOSORBIDE MONONITRATE 60 MG TAB PO SCH (06:01)
[2016-08-15] MEDS: NS + KCL 20 MEQ INJ 1,000 ML IV SCH ×2 (06:02→10:55)
[2016-08-15 07:21] LABS: AUTOMATED NEUTROPHIL # 6.7 TH/MM3 (1.8-7.7); BASOPHIL % 0.2 % (0.0-2.0); EOSINOPHIL # 0.2 TH/MM3 (0-0.4); EOSINOPHIL % 2.3 % (0.0-4.0); HEMATOCRIT 28.2 % (39.0-51.0); HEMO FLAGS DIFF FINAL; LYMPH % 12.9 % (9.0-44.0); LYMPHOCYTE # 1.1 TH/MM3 (1.0-4.8); MEAN CELL VOLUME 84.1 FL (80.0-100.0); MEAN CORPUSCULAR HEMOGLOBIN 27.6 PG (27.0-34.0); MEAN CORPUSCULAR HGB CONC 32.8 % (32.0-36.0); MONO % 8.4 % (0.0-8.0); NEUT % 76.2 % (16.0-70.0); PLATELET COUNT 173 TH/MM3 (150-450); RED BLOOD COUNT 3.36 MIL/MM3 (4.50-5.90); RED CELL DISTRIBUTION WIDTH 15.4 % (11.6-17.2); WHITE BLOOD COUNT 8.7 TH/MM3 (4.0-11.0)
[2016-08-15 07:22] LABS: POTASSIUM 4.1 MEQ/L (3.5-5.1)
[2016-08-15 07:31] LABS: BICARBONATE 21.3 MEQ/L (21.0-32.0); MAGNESIUM 1.9 MG/DL (1.5-2.5)
[2016-08-15 08:00] VITALS: BP 114/69; PULSE 65; PULSE 83; RESP 15; TEMP 99.5; O2SAT 97
[2016-08-15] MEDS: SODIUM CHLORIDE 0.9% FLUSH 10 ML FLUSH IV FLUSH SCH (09:00)
[2016-08-15 09:08] VITALS: BP 118/65; PULSE 74; RESP 15; TEMP 99.4; O2SAT 98
--- NOTE | 2016-08-15 09:51 | RADHPO ---
EXAM DATE/TIME: 08/15/2016 09:42 [facility] COMPARISON: CHEST SINGLE AP, August 13, 2016, 12:55. INDICATIONS : Fever MEDICAL HISTORY : Hypertension. Hypercholesterolemia. SURGICAL HISTORY : CABG. ENCOUNTER: Subsequent ACUITY: 1 week PAIN SCORE: Non-responsive. LOCATION: Bilateral chest FINDINGS: Minimal new parenchymal changes are seen in the right base. The left lung is clear. The heart and pu lmonary vascularity are normal. The portion of the bony skeleton visualized is unremarkable. . CONCLUSION: Minimal increase in parenchymal infiltrate right base that could be early inflammatory process. Herbert Merchant MD FACR on August 15, 2016 at 9:49 Board Certified Radiologist. This report was verified electronically.
[2016-08-15] MEDS: ASPIRIN EC 81 MG TABEC PO SCH (10:52)
[2016-08-15] MEDS: TICAGRELOR 90 MG TAB PO SCH ×2 (10:52→20:08)
[2016-08-15] MEDS: LISINOPRIL 10 MG TAB PO SCH (10:53)
[2016-08-15] MEDS: FERROUS SULFATE 325 MG (65 MG ELEMENTAL IRON) TAB PO SCH (10:53)
[2016-08-15] MEDS: ATORVASTATIN 40 MG TAB PO SCH (10:53)
[2016-08-15] MEDS: DOCUSATE SODIUM 50 MG/SENNA 8.6 MG TAB PO SCH ×2 (11:07→20:08)
[2016-08-15 12:27] VITALS: BP 118/67; PULSE 78; RESP 14; TEMP 100; O2SAT 98
[2016-08-15 16:58] VITALS: BP 141/78; PULSE 83; RESP 16; TEMP 99.8; O2SAT 99
[2016-08-15] MEDS ORDERED: PANT40TA3 PO (17:05)
[2016-08-15] MEDS ORDERED: PANTOPRAZOLE SOD 40 MG DELAYED RELEASE TAB PO ONE (18:00)
--- NOTE | 2016-08-15 18:19 | HHI.PR ---
Subjective Remarks Patient seen this afternoon around 5 PM. Seen with the assistance of senior medical technologist over the phone. Says he is feeling well. Denies any chest pain or shortness of breath. Denies any abdominal pain. No further bowel movements. Once to go home. I discussed with him that he had a fever overnight, but he is not concerned about this. He has been walking around without issue. He is alert and oriented 4. Later discussed with son at bedside, who speaks Upper Sor[place]. He says that patient really wants to go home would be happier at home. We discussed that patient has ongoing fevers, risk of systemic infection, or malignancy, but otherwise vitals are acceptable. Son will make sure that father stays hydrated, will encouraged Gatorade, and follow with primary care for further workup. Objective Vital Signs Date Time Temp Pulse Resp B/P Pulse Ox O2 Delivery O2 Flow Rate FiO2 08/15/16 16:58 99.8 83 16 141/78 99 08/15/16 12:27 100.0 78 14 118/67 98 08/15/16 09:08 99.4 74 15 118/65 98 08/15/16 08:00 83 08/15/16 08:00 99.5 65 15 114/69 97 08/15/16 04:11 100.2 81 12 142/76 96 08/15/16 00:29 101.3 89 12 130/78 97 08/14/16 21:00 101.0 86 12 133/69 98 08/14/16 20:00 92 I/O 08/14/16 08/14/16 08/14/16 08/15/16 08/15/16 08/15/16 07:00 15:00 23:00 07:00 15:00 23:00 Intake Total 120 ml 650 ml 756 ml 1472 ml Output Total 900 ml 850 ml 300 ml 1425 ml 1700 ml Balance -780 ml -200 ml -300 ml -669 ml -228 ml Intake Oral 120 ml 650 ml 700 ml IV Total 756 ml 772 ml Output Urine Total 900 ml 850 ml 300 ml 1425 ml 1700 ml # Bowel Movements 0 0 Result Diagram: 08/15/16 0643 08/15/16 0643 Imaging Last Impressions Chest X-Ray 08/15/16 0000 Signed Impressions: Service Date/Time: Monday, August 15, 2016 09:42 - CONCLUSION: Minimal increase in parenchymal infiltrate right base that could be early inflammatory process. Herbert Merchant MD FACR Head CT 08/13/16 1238 Signed Impressions: Service Date/Time: August 14:38 - CONCLUSION: 1. No acute intracranial abnormality. Reuben Melissa MD Cervical Spine CT 08/13/16 1238 Signed Impressions: Service Date/Time: , August 13, 2016 14:38 - CONCLUSION: 1. No acute fracture or dislocation. 2. Old compression deformity involving T2. 3. Multilevel degenerative changes without central canal stenosis or neural impingement. 4. Atherosclerotic calcifications throughout the carotid arteries and vertebral arteries. Oscar Lambert Jr., MD Objective Remarks GENERAL: Patient sitting up in bed. Appears comfortable. He is alert and oriented 4. Seen with assistance of medical record clerk over the phone. SKIN: Warm and dry. HEAD: Normocephalic. EYES: No scleral icterus. No injection or drainage. NECK: Supple, trachea midline. No JVD or lymphadenopathy. CARDIOVASCULAR: Regular rate and rhythm without murmurs, gallops, or rubs. RESPIRATORY: Breath sounds equal bilaterally. No accessory muscle use. GASTROINTESTINAL: Abdomen soft, non-tender, nondistended. MUSCULOSKELETAL: No cyanosis, or edema. BACK: Nontender without obvious deformity. No CVA tenderness. A/P Assessment and Plan =====08/15/16 Patient with continued fevers 101.3 just past midnight. White blood cell count remains normal. No other signs of infection, apart from previous diarrhea which has resolved. Chest x-ray reviewed. Better effort on this x-ray, findings indicate an expansion of what may be reexpanded atelectasis versus pneumonia. No respiratory symptoms, and saturating 99% on room air. Discharge home with course of Augmentin. Follow-up with primary care. //Diarrhea adult patient with explosive black watery stool and associated lightheadedness, dizziness, resolved -Patient has not had any recent antibiotics or recent travel to indicate any infectious diarrhea -ER physician did occult blood in stool which was negative -Continue monitor stool output -Continue IV fluids -Physical therapy evaluation -Orthostatic vitals -Continue trend hemoglobin/hematocrit to evaluate for acute GI blood loss, without any significant drop -Patient subsequently had firm bowel movement on 08/15. //Anemia. -Patient on anticoagulation. Possibility of ulcer, however no symptoms. Hemoglobin did decrease somewhat during admission, possibly secondary to fluids. Negative Hemoccult on admission. Patient does not wish for invasive workup. Due to anti-coagulation, will start patient on pantoprazole prophylaxis. //Hypertension, hyperlipidemia, coronary artery disease with recent cardiac catheterization and intervention -Patient with elevated troponin and has continued to trend downward -EKG shows changes with T-wave inversions in septal lateral leads -Case was discussed with house carpenter Dr. Solares, he indicated that troponin elevations and EKG changes could be associated with recent myocardial infarction and intervention -Environmental Services Coordinator indicates that he'll be happy to evaluate the patient if the patient has any cardiac complaints -Vitals appeared stable during admission, with exception of fevers. Follow-up with cardiology as outpatient. //Fevers. Up to 101.5 overnight. No other signs or symptoms of infection now that diarrhea has resolved. Patient wishes to go home. Broad differential. Possibility of Ritika's syndrome, however patient does not complain of chest pain. Will follow with primary care for further workup. With patient and son conveys understanding. //Chronic kidney disease stage III -Renal functions improved with IV hydration -Monitor renal function -Avoid nephrotoxins //Possible right lower lobe pneumonia. This could be reexpansion from atelectasis on however given fevers will discharge home on Augmentin. Close follow-up with primary care. //DVT prevention -Sequential compression devices Discharge Planning Discharge home with son. Johnny Johansen MD Aug 15, 2016 18:19
[2016-08-15] MEDS ORDERED: AUGM875T3 PO (18:27)
--- NOTE | 2016-08-15 18:29 | HHI.DS ---
Discharge Summary Admission Date Aug 13, 2016 at 16:28 Discharge Date: Aug 15, 2016 Admitting Diagnosis dizziness/altered mental status/elevated troponin (1) Lightheaded ICD Code: R42 Diagnosis: Principal (2) Diarrhea ICD Code: R19.7 Diagnosis: Principal (3) Elevated troponin I level ICD Code: R74.8 Diagnosis: Secondary (4) CAD (coronary artery disease) ICD Code: I25.10 Diagnosis: Secondary (5) Chronic kidney disease, stage 3 ICD Code: N18.3 Diagnosis: Secondary Procedures No invasive procedures. Brief History - From Admission 86-year-old male who only speaks [place] with rather complex cardiac history with coronary disease, recent hospitalization for non-ST elevated myocardial infarction undergoing 2 cardiac catheterizations, intervention. Patient was discharged home 2 days ago. Patient was in normal state of health until this morning when he got up and he had before problems today. He described them as explosive black watery bowel movements. After bowel movements he had lightheadedness, dizziness, possible near syncope. He denied any loss of consciousness. He denied any chest pain, shortness of breath, dyspnea, abdominal pain. The patient was brought to the hospital by his son, whom has left to go to work. Information was taken from patient by nurse that speaks [place]. At time evaluating patient he is doing rather well. Patient had workup done which did indicate elevated troponin, changes in EKGs. Case was discussed with Dr. Solares, who indicated that the troponin elevation could be normal elevation from previous intervention and myocardial infarction. He indicates that the changes EKG can also be related to his recent cardiac episodes. Does not feel that the patient has any cardiac etiology this time. Patient does not have any cardiac complaints. ER physician requested patient be observed in the hospital due to his presentation. CBC/BMP: 08/15/16 0643 08/15/16 0643 Significant Findings Laboratory Tests Test 08/13/16 08/13/16 08/13/16 08/13/16 12:40 14:35 16:50 18:50 Red Blood Count 3.86 MIL/MM3 (4.50-5.90) Hemoglobin 10.7 GM/DL 10.7 GM/DL (13.0-17.0) (13.0-17.0) Hematocrit 32.4 % 32.4 % (39.0-51.0) (39.0-51.0) Neutrophils (%) (Auto) 71.3 % (16.0-70.0) Chloride Level 108 MEQ/L (98-107) Blood Urea Nitrogen 23 MG/DL (7-18) Creatinine 1.70 MG/DL (0.60-1.30) Estimat Glomerular Filtration 38 ML/MIN (>89) Rate Random Glucose 119 MG/DL (74-106) Calcium Level 8.4 MG/DL (8.5-10.1) Alkaline Phosphatase 44 U/L (45-117) Creatine Kinase MB 5.2 NG/ML (0.5-3.6) Troponin I 0.41 NG/ML 0.38 NG/ML (0.02-0.05) (0.02-0.05) Albumin 3.2 GM/DL (3.4-5.0) Urine Occult Blood MOD (NEG) Test 08/13/16 08/14/16 08/14/16 08/15/16 22:45 00:45 05:47 06:43 Troponin I 0.37 NG/ML (0.02-0.05) Hemoglobin 9.8 GM/DL 9.9 GM/DL 9.3 GM/DL (13.0-17.0) (13.0-17.0) (13.0-17.0) Hematocrit 30.4 % 30.2 % 28.2 % (39.0-51.0) (39.0-51.0) (39.0-51.0) Red Blood Count 3.59 MIL/MM3 3.36 MIL/MM3 (4.50-5.90) (4.50-5.90) Neutrophils (%) (Auto) 77.5 % 76.2 % (16.0-70.0) (16.0-70.0) Lymphocytes # (Auto) 0.9 TH/MM3 (1.0-4.8) Chloride Level 111 MEQ/L 112 MEQ/L (98-107) (98-107) Blood Urea Nitrogen 24 MG/DL (7-18) Estimat Glomerular Filtration 52 ML/MIN (>89) 57 ML/MIN (>89) Rate Calcium Level 8.4 MG/DL 7.8 MG/DL (8.5-10.1) (8.5-10.1) Alkaline Phosphatase 41 U/L (45-117) Albumin 3.0 GM/DL 2.7 GM/DL (3.4-5.0) (3.4-5.0) Monocytes (%) (Auto) 8.4 % (0.0-8.0) Phosphorus Level 2.1 MG/DL (2.5-4.9) Thyroid Stimulating Hormone 7.760 uIU/ML 3rd Gen (0.358-3.740) Imaging Last Impressions Chest X-Ray 08/15/16 0000 Signed Impressions: Service Date/Time: Monday, August 15, 2016 09:42 - CONCLUSION: Minimal increase in parenchymal infiltrate right base that could be early inflammatory process. Herbert Merchant MD FACR Head CT 08/13/16 1238 Signed Impressions: Service Date/Time: August 14:38 - CONCLUSION: 1. No acute intracranial abnormality. Reuben Melissa MD Cervical Spine CT 08/13/16 1238 Signed Impressions: Service Date/Time: August 14:38 - CONCLUSION: 1. No acute fracture or dislocation. 2. Old compression deformity involving T2. 3. Multilevel degenerative changes without central canal stenosis or neural impingement. 4. Atherosclerotic calcifications throughout the carotid arteries and vertebral arteries. Oscar Lambert Jr., MD PE at Discharge GENERAL: Well-developed, well-nourished, in no acute distress. alert and orientated HEENT: Head is normocephalic without any lesions or masses noted. Facial features are symmetric. Eyes: Extraocular muscles are intact. Conjunctivae were clear. Oropharyngeal: Pharynx without any erythema edema. Tongue is midline without deviation. Buccal mucosa is moist without any masses or lesions NECK: Supple without any masses. Trachea midline no deviation. No JVD, CARDIAC: Regular rhythm, regular rate. S1/S2 are heard. 2 /6 ejection murmur, no gallops or rubs. LUNGS: Clear to auscultation bilaterally. No wheeze, rhonchi or rales. No use of accessory muscles on inspiration or expiration. ABDOMEN: Soft, nontender. Nondistended. Bowel sounds heard in all 4 quadrants. No organomegaly or masses. Negative rebound, negative guarding EXTREMITIES: No edema, pulses are equal bilaterally. No cyanosis or clubbing NEUROLOGY: Mood and affect appear appropriate. Cranial nerves II through XII grossly intact. Moving all extremities, Hospital Course Patient presented with fevers, normal white count. No obvious signs of infection. Diarrhea resolved, unlikely C. difficile. Patient felt well, and was discharged home. Chest x-ray did show small right lower lobe infiltrate, which in light of fevers could be possible pneumonia, and patient was discharged home on Augmentin. For problem-based summary for most recent progress note, please see below. =====08/15/16 Patient with continued fevers 101.3 just past midnight. White blood cell count remains normal. No other signs of infection, apart from previous diarrhea which has resolved. Chest x-ray reviewed. Better effort on this x-ray, findings indicate an expansion of what may be reexpanded atelectasis versus pneumonia. No respiratory symptoms, and saturating 99% on room air. Discharge home with course of Augmentin. Follow-up with primary care. //Diarrhea adult patient with explosive black watery stool and associated lightheadedness, dizziness, resolved -Patient has not had any recent antibiotics or recent travel to indicate any infectious diarrhea -ER physician did occult blood in stool which was negative -Continue monitor stool output -Continue IV fluids -Physical therapy evaluation -Orthostatic vitals -Continue trend hemoglobin/hematocrit to evaluate for acute GI blood loss, without any significant drop -Patient subsequently had firm bowel movement on 08/15. //Anemia. -Patient on anticoagulation. Possibility of ulcer, however no symptoms. Hemoglobin did decrease somewhat during admission, possibly secondary to fluids. Negative Hemoccult on admission. Patient does not wish for invasive workup. Due to anti-coagulation, will start patient on pantoprazole prophylaxis. //Hypertension, hyperlipidemia, coronary artery disease with recent cardiac catheterization and intervention -Patient with elevated troponin and has continued to trend downward -EKG shows changes with T-wave inversions in septal lateral leads -Case was discussed with resource center teacher Dr. Solares, he indicated that troponin elevations and EKG changes could be associated with recent myocardial infarction and intervention -Acoustic Sensor Operator indicates that he'll be happy to evaluate the patient if the patient has any cardiac complaints -Vitals appeared stable during admission, with exception of fevers. Follow-up with cardiology as outpatient. //Fevers. Up to 101.5 overnight. No other signs or symptoms of infection now that diarrhea has resolved. Patient wishes to go home. Broad differential. Possibility of Ritika's syndrome, however patient does not complain of chest pain. Will follow with primary care for further workup. With patient and son conveys understanding. //Chronic kidney disease stage III -Renal functions improved with IV hydration -Monitor renal function -Avoid nephrotoxins //Possible right lower lobe pneumonia. This could be reexpansion from atelectasis on however given fevers will discharge home on Augmentin. Close follow-up with primary care. //DVT prevention -Sequential compression devices Pt Condition on Discharge: Stable Discharge Disposition: Discharge Home Discharge Time: > 30 minutes Discharge Instructions DIET: Follow Instructions for: Heart Healthy Diet Activities you can perform: Regular-No Restrictions Activities to Avoid: Driving for 24 hrs Follow up Referrals: PCP Follow-up - 1 Week New Medications: Amoxicillin-Clavulanate (Augmentin) 875-125 Mg Tab 1 TAB PO BID Infection #28 Ref 0 TAB Pantoprazole (Pantoprazole) 40 Mg Tab 40 MG PO DAILY Reflux #30 Ref 0 TAB Continued Medications: Aspirin DR (Adult Aspirin EC Low Strength) 81 Mg Tabec 81 MG PO DAILY CAD #30 Ref 0 TAB Atorvastatin (Atorvastatin) 40 Mg Tab 80 MG PO DAILY CAD #30 Ref 0 TAB Ferrous Sulfate (Ferosul) 325 Mg Tablet 325 MG PO DAILY anemia #30 Ref 0 TAB Isosorbide Mononitrate ER (Isosorbide Mononitrate ER) 60 Mg Tab 60 MG PO DAILY@0700 CAD #30 Ref 0 TAB Lisinopril (Lisinopril) 10 Mg Tab 10 MG PO DAILY CAD #30 Ref 0 TAB Tamsulosin (Flomax) 0.4 Mg Cap 0.4 MG PO HS Manage Prostate Problems #30 Ref 0 CAP Ticagrelor (Brilinta) 90 Mg Tab 90 MG PO BID CAD #60 Ref 0 TAB Johnny Johansen MD Aug 15, 2016 18:29
[2016-08-15] MEDS: TAMSULOSIN HCL 0.4 MG CAP PO SCH (20:08)
[2016-08-15] MEDS ORDERED: AMOXICILLIN/CLAVULANATE K 875 MG TAB PO SCH (21:00)
== END 2016-08-15 20:15 | disposition home or self-care (01) ==
LOC: PHED 12:15 → PHEDA 16:28 → PH3B 18:04
PROVIDERS: ADMIT Internal Medicine; ATTEND Internal Medicine
DX: R19.7 Diarrhea, unspecified (principal); R42 Dizziness and giddiness; R74.8 Abnormal levels of other serum enzymes; I25.10 Atherosclerotic heart disease of native coronary artery without angina pectoris; I12.9 Hypertensive chronic kidney disease with stage 1 through stage 4 chronic kidney disease, or unspecified chronic kidney disease; N18.3 Chronic kidney disease, stage 3 (moderate); D64.9 Anemia, unspecified; I25.2 Old myocardial infarction; E78.5 Hyperlipidemia, unspecified; Z85.46 Personal history of malignant neoplasm of prostate; Z88.8 Allergy status to other drugs, medicaments and biological substances; Z87.891 Personal history of nicotine dependence
CPT/HCPCS: 51703; 70450; 71010; 72125; 80053; 80069; 81001; 82550; 82552; 83735; 84439; 84443; 84480; 84484; 85014; 85018; 85025; 85610; 85730; 93005; 96360; 96361; 97162; 99285; G0378; G8987; G8988; J3480

== ENCOUNTER 2016-09-28 01:28 | Emergency (ER) | payer MEDICAID ==
[~2016-09-28] VITALS: Ht 167.6 cm; Wt 66.0 kg
[~2016-09-28 01:28] MED LIST changes: +AUGM875T3 PO; +PANT40TA3 PO
[2016-09-28 01:30] VITALS: BP 186/103; PULSE 100; RESP 16; TEMP 97.3; O2SAT 100
[2016-09-28 02:00] VITALS: BP 167/70; PULSE 71; RESP 18; TEMP 97.3; O2SAT 100
[2016-09-28 02:00] LABS: BLOOD, URINE SMALL (NEG); GLUCOSE,URINE NEG (NEG); KETONE, URINE NEG (NEG); NITRITE,URINE NEG (NEG)
[2016-09-28 02:07] LABS: METHOD OF COLLECTION CATH; URINE COLOR YELLOW (YELLW/STRAW)
[2016-09-28 02:08] LABS: MUCUS URINE OCC /lpf (OCC); WBC, URINE 0-2 /hpf (0-5)
[2016-09-28 02:09] LABS: COMMENT (UR) CATH-CULT NOT IND; CULTURE IF INDICATED CATH CULTURE NOT IND; SQUAMOUS EPITHELIAL CELL URINE 0-5 /hpf (0-5)
--- NOTE | 2016-09-28 03:40 | PD ---
HPI Chief Complaint: Complaint Time Seen by Provider: 01:49 Travel History International Travel<30 days: No Contact w/Intl Traveler<30days: No Traveled to known affect area: No History of Present Illness HPI 86-year-old male presents to the emergency department for several hours of urinary retention. Patient was recently put on antibiotic for UTI and identified to have urinary retention and was given and Perry catheter for several days. Patient's catheter was removed approximately 3 days ago and patient has had no issues with recurrent urinary retention until today. Patient complains of marked suprapubic discomfort. No report of fever chills flank pain or hematuria. Patient has complete course of antibiotic. PFSH Past Medical History Hx Anticoagulant Therapy: Yes Arthritis: No Asthma: No Autoimmune Disease: No Heart Rhythm Problems: No Cancer: Yes (prostate) Cardiovascular Problems: Yes High Cholesterol: Yes Chemotherapy: Yes (1998) Chest Pain: No Congestive Heart Failure: No COPD: No Cerebrovascular Accident: No Coronary Artery Disease: Yes Diabetes: No Diminished Hearing: No Endocrine: No Gastrointestinal Disorders: No GERD: No Glaucoma: No Genitourinary: No Headaches: No Hepatitis: No Hiatal Hernia: No Heparin Induced Thrombocytopen: No Hypertension: Yes Immune Disorder: No Inguinal Hernia: Yes Implanted Vascular Access Dvce: No Kidney Stones: No Musculoskeletal: No Neurologic: No Psychiatric: No Reproductive: No Respiratory: No Integumentary: No Migraines: No Radiation Therapy: No Renal Failure: No Seizures: No Sickle Cell Disease: No Sleep Apnea: No Thyroid Disease: No Ulcer: No Tetanus Vaccination: Unknown Influenza Vaccination: Yes Past Surgical History Abdominal Surgery: Yes (abdominal, umbilica hernia) AICD: No Arteriovenous Shunt: No Cardiac Surgery: Yes (heart surgery 1997) Coronary Artery Bypass Graft: Yes Coronary Stent: Yes Ear Surgery: No Endocrine Surgery: No Eye Surgery: No Genitourinary Surgery: No Gynecologic Surgery: Yes (prostate scraping.) Insulin Pump: No Joint Replacement: No Neurologic Surgery: No Oral Surgery: No Pacemaker: No Thoracic Surgery: No Other Surgery: Yes (hernia repair) Social History Alcohol Use: Yes (OCC WINE) Tobacco Use: No Substance Use: No Allergies-Medications (Allergen,Severity, Reaction): Uncoded Allergies: dipyrone (Allergy, Intermediate, Hives, 08/06/16) Reported Meds & Prescriptions Reported Meds & Active Scripts Active Pantoprazole (Pantoprazole Sodium) 40 Mg Tab 40 Mg PO DAILY Brilinta (Ticagrelor) 90 Mg Tab 90 Mg PO BID Lisinopril 10 Mg Tab 10 Mg PO DAILY Isosorbide Mononitrate ER (Isosorbide Mononitrate) 60 Mg Tab 60 Mg PO DAILY@0700 Ferosul (Ferrous Sulfate) 325 Mg Tablet 325 Mg PO DAILY Atorvastatin (Atorvastatin Calcium) 40 Mg Tab 80 Mg PO DAILY Adult Aspirin EC Low Strength (Aspirin) 81 Mg Tabec 81 Mg PO DAILY Reported Flomax (Tamsulosin HCl) 0.4 Mg Cap 0.4 Mg PO HS Review of Systems Except as stated in HPI: all other systems reviewed are Neg General / Constitutional: No: Fever HENT: No: Congestion Respiratory: No: Shortness of Breath Gastrointestinal: No: Abdominal Pain Genitourinary: Positive: Decreased Urinary Output, Hesitancy, Dribbling Musculoskeletal: No: Myalgias, Arthralgias Neurologic: No: Weakness Psychiatric: Positive: Anxiety Hematologic/Lymphatic: No: Easy Bruising Physical Exam Narrative GENERAL: Pleasant elderly male in no acute distress no respiratory distress SKIN: Warm and dry. HEAD: Normocephalic. EYES: No scleral icterus. No injection or drainage. NECK: Supple, trachea midline. No JVD or lymphadenopathy. CARDIOVASCULAR: Regular rate and rhythm without murmurs, gallops, or rubs. RESPIRATORY: Breath sounds equal bilaterally. No accessory muscle use. GASTROINTESTINAL: Abdomen soft, mild suprapubic tenderness no guarding or rebound, nondistended. No palpable pulsatile mass. MUSCULOSKELETAL: No cyanosis, or edema. BACK: Nontender without obvious deformity. No CVA tenderness. Data Data Last Documented VS Vital Signs Date Time Temp Pulse Resp B/P Pulse Ox O2 Delivery O2 Flow Rate FiO2 09/28/16 03:56 84 18 98 09/28/16 03:52 156/80 Room Air 09/28/16 02:00 97.3 Orders Urinary Catheter Insert/Apply (09/28/16 01:49) Urinalysis - C+S If Indicated (09/28/16 01:49) Labs Laboratory Tests Test 09/28/16 01:50 Urine Collection Type CATH Urine Color YELLOW Urine Turbidity CLEAR Urine pH 6.0 Urine Specific [place] 1.007 Urine Protein NEG mg/dL Urine Glucose (UA) NEG mg/dL Urine Ketones NEG mg/dL Urine Occult Blood SMALL Urine Nitrite NEG Urine Bilirubin NEG Urine Leukocyte Esterase NEG Urine RBC 4-9 /hpf Urine WBC 0-2 /hpf Urine Squamous Epithelial 0-5 /hpf Cells Urine Mucus OCC /lpf Microscopic Urinalysis Comment CATH-CULT NOT IND MDM Medical Decision Making Medical Screen Exam Complete: Yes Emergency Medical Condition: Yes Medical Record Reviewed: Yes Interpretation(s) Urinalysis: Small blood Differential Diagnosis Urinary retention, UTI, urethral stricture, obstructive uropathy Narrative Course Urinary catheter insert upon patient arrival with good urine output; patient monitored in the emergency department for effect of post urinary catheter insertion urinary drainage; urinalysis small amount of blood otherwise no evidence for infection Patient tolerated urinary catheter will exam patient stable for outpatient management and follow-up with his urologist which family member reports is scheduled to do so this week. Diagnosis Primary Impression: Urinary retention Additional Impression: Urinary catheter insertion/adjustment/removal Referrals: Primary Care Physician 1 day Urologist call for appointment Patient Instructions: General Instructions Disposition: DISCHARGE HOME Condition: Stable Leatha Kaur MD Sep 28, 2016 03:40
[2016-09-28 03:52] VITALS: BP 156/80; PULSE 84; RESP 18; O2SAT 98
== END 2016-09-28 04:10 | disposition home or self-care (01) ==
LOC: PHED 01:28
DX: R33.9 Retention of urine, unspecified (principal)
CPT/HCPCS: 51702; 81001